=== PATIENT | female | born 1950 | race Caucasian/White ===

== ENCOUNTER 2020-10-24 10:42 | Outpatient (CLI) | payer MEDICARE, MEDICAID, SELFPAY ==
--- NOTE | 2020-10-24 10:48 | XR_ITS ---
WS: [id number] HIP WITH PELVIS RIGHT TECHNIQUE: 3 views of the right hip with pelvis CLINICAL INFORMATION: PAIN IN RIGHT HIP COMPARISON: None. FINDINGS: Osteopenia. Mild degenerative arthritis right hip with joint space narrowing. Pelvic phleboliths. No acute fractures. Normal anatomic alignment. XR/XR hip RT 2-3V wo/w pel* [id number] IMPRESSION: Mild degenerative arthritis. No acute fractures. Tonnis classification: grade 1: sclerosis of femoral head and acetabulum or sli ght joint space narrowing or slight lipping at joint margins
== END 2020-10-24 10:43 | disposition home or self-care (01) ==
PROVIDERS: PCP Nurse Practitioner Family; Visit Provider Nurse Practitioner Family
DX: M25.551 Pain in right hip (principal); M16.11 Unilateral primary osteoarthritis, right hip
CPT/HCPCS: 73502

== ENCOUNTER 2021-01-21 10:16 | Emergency (ER) | payer MEDICARE, MEDICAID, SELFPAY ==
[2021-01-21 10:16] VITALS: BP 108/63; PULSE 80; RESP 16; TEMP 36.4; O2SAT 95; BMI 29.2
[2021-01-21 10:36] VITALS: BP 108/63; PULSE 81; RESP 18; O2SAT 94
--- NOTE | 2021-01-21 10:40 | ECG_ITS ---
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 Measurements Intervals [place] Rate: 76 P: AK: QRS: 85 QRSD: 95 T: 42 QT: 377 QTc: 425 Interpretive Statements ATRIAL FIBRILLATION NONSPECIFIC T-WAVE ABNORMALITY ABNORMAL RHYTHM ECG No previous ECG available for comparison Electronically Signed On 01-21-2021 17:08:36 CDT by Tono Durán M.D. [id number]
--- NOTE | 2021-01-21 10:56 | W.ED.DIZZY ---
HPI - Dizziness General: Chief Complaint: Dizziness Stated Complaint: DIZZY/ WEAK Time Seen by Provider: 01/21/21 10:56 History of Present Illness: HPI Narrative: Ms. Sorensen is a 70-year-old lady with significant past medical history of CABG, COPD, atrial fibrillation on Eliquis and amlodipine who presents to the emergency department due to episode of lightheadedness. She reports being at her baseline health and noted recent changes in medications. She was driving to the [place] office when she had sudden onset of lightheadedness. She describes near syncope. Symptoms continued and 911 was called. Upon EMS arrival reportedly her heart rate was approximately 40 and they gave 0.5 mg of atropine and 500 cc of fluid. She endorses improvement in symptoms with these treatments. She denies similar episodes in the past. She cannot think of any specific provoking, exacerbating, or alleviating factors. There was no vertiginous component. She has been compliant with her Eliquis. Review of Systems General: Reports: 10 or more systems reviewed and unremarkable except in HPI and below Narrative: CONSTITUTIONAL: denies fever, fatigue, weakness EYES - denies pain, denies loss of vision EARS - denies ear issues. NOSE - denies congestion or rhinorrhea. THROAT - denies sore throat or difficulty swallowing. CARDIOVASCULAR - denies chest pain and palpitations RESPIRATORY - denies shortness of breath and cough GASTROINTESTINAL - denies abdominal pain, no nausea vomiting, no changes in bowel habits GENITOURINARY - denies dysuria or urinary frequency MUSCULOSKELETAL- denies deformity or pain SKIN - denies rashes or new changed skin lesions NEUROLOGIC -see HPI HEMATOLOGIC/LYMPHATIC - denies easy bruising or lymphadenopathy. [facility] ED PFSH: Medical History Allergic rhinitis Chronic low back pain GERD (gastroesophageal reflux disease) HTN (hypertension) Hyperlipidemia IBS (irritable bowel syndrome) Insomnia Memory loss Surgical History History of coronary artery stent placement Hx of coronary artery bypass graft S/P triple vessel bypass Family History Other CAD (coronary artery disease) Dementia Family history of premature coronary artery disease Hypertension Social History Smoking and tobacco status: current every day smoker Physical Exam Narrative: EXAM NARRATIVE: GENERAL/CONSTITUTIONAL - well-appearing. No acute distress. Eyes - PERRL, no conjunctival injection ENMT - Atraumatic external nose and ears. Moist mucous membranes NECK - supple. trachea midline CARDIOVASCULAR - regular rate and rhythm. Peripheral pulses 2+ and equal RESPIRATORY -clear to auscultation bilaterally. No retractions or accessory muscle use. ABDOMEN/GI - Nontender/Nondistended. No tenderness to percussion or evidence of peritonitis MSK - Extremities without obvious deformity or tenderness to palpation SKIN - Warm, Dry NEURO - alert and appropriately oriented. strength and sensation intact. Cranial nerve II through XII intact. Moves all extremities equally. PSYCH - Appropriate mood and affect Course ED course: - Patient was seen and evaluated by me at bedside - Patient placed on cardiac monitors, IV access obtained - Initial evaluation notable for no acute distress, nontoxic appearance. No neurologic deficits appreciated. Heart rate is back to normal. - Labs notable for no acute abnormalities to explain the patient's symptoms - Imaging notable for no acute abnormality to explain patient symptoms - Upon serial reexamination after treatment the patient was similar occurrence lightheadedness/dizziness - Based on patient history, evaluation, labs, and imaging as interpreted the most likely cause of the patient's condition is unclear -Other monitor ordered and patient will be discharged to directly pick it up today. - The results of ED evaluation were discussed with the patient including prescriptions and/or symptomatic cares (if applicable) including appropriate and responsible use, followup plan, and return precautions. The patient verbalized understanding and felt safe for discharge. - Patient discharged in satisfactory condition. Vital Signs: Vital signs: Vital Signs Temperature 97.5 F L 01/21/21 10:16 Pulse Rate 67 01/21/21 14:15 Respiratory Rate 18 01/21/21 14:15 Blood Pressure 105/67 01/21/21 14:15 Pulse Oximetry 94 01/21/21 14:15 MDM - Dizziness Medical Records: Attestation: I reviewed the patient's medical records. Lab Data: Attestation: I reviewed the patient's lab results. Labs: Lab Results 01/21/21 01/21/21 01/21/21 Range/Units 12:55 12:55 12:55 WBC 6.7 (4.0-10.0) 10^3/ uL RBC 3.79 L (4.1-5.3) 10^6/u L Hgb 11.7 (11.5-15.3) g/dL Hct 35.2 L (37.0-47.0) % MCV 92.9 (81-99) fl MCH 30.9 (28.0-34.0) pg MCHC 33.2 (30.0-36.0) g/dL RDW 13.4 (12.1-15.1) % Plt Count 177 (130-400) 10^3/c mm MPV 10.7 H (7.4-10.4) fL Neut % (Auto) 76.3 % Lymph % (Auto) 13.7 % [place] % (Auto) 7.1 % Eos % (Auto) 2.0 % Baso % (Auto) 0.6 % Neut # (Auto) 5.08 (1.8-7.7) 10^3/u L Lymph # (Auto) 0.9 (0.8-4.8) 10^3/u L [place] # (Auto) 0.5 (0.2-0.9) 10^3/u L Eos # (Auto) 0.1 (0.0-0.8) 10^3/u L Baso # (Auto) 0.0 (0.0-0.1) 10^3/u L Nucleated RBC % (a uto) 0 % Nucleated RBCs # 0.0 /100WBC Sodium 138 (136-145) mmol/L Potassium 4.3 (3.5-5.1) mmol/L Chloride 104 (98-107) mmol/L Carbon Dioxide 25 (22-29) mmol/L Anion Gap 13.3 (5-19) BUN 16 (8-23) mg/dL Creatinine 1.0 H (0.5-0.9) mg/dL GFR Calculation 54.8 L (90-130) mL/min Glucose 100 (65-115) mg/dL Calculated Osmolal ity 287 (285-295) mOsm/k g Calcium 8.5 (8.5-10.5) mg/dL Magnesium 1.7 (1.7-2.3) mg/dL Total Bilirubin 0.3 (0.15-1.2) mg/dL AST 19 (0-32) U/L ALT 13 (0-33) U/L Alkaline Phosphata se 126 H (35-105) IU/L Troponin T Baselin e 11 H (0-10) ng/L NT-Pro-B Natriuret Pep 1266 H (0-125) pg/mL Total Protein 5.8 L (6.6-8.7) g/dL Albumin 3.8 (3.5-5.2) g/dL Globulin 2.0 (1.3-4.6) g/dL TSH 0.84 (0.27-4.20) uIU/ mL EKG Data^: EKG 1: Attestation: I personally reviewed and interpreted this EKG as follows: EKG interpretation date: 01/21/21 EKG interpretation time: 10:55 Prior EKG tracings: not available for review Interpretation: 12 lead ekg shows an irregular atrial rhythm at a rate of 76 No UT interval, QRS 95, QTc 435. Normal axis. Interpretation: atrial fibrillation Discharge Plan Discharge Patient Disposition: Home Clinical Impression: Pre-syncope, Atrial fibrillation Condition: Stable Prescriptions: No Action acetaminophen 650 mg tablet extended release 650 mg PO Q12H RF: 0 amlodipine 10 mg tablet 10 mg PO DAILY RF: 0 aspirin 81 mg tablet,delayed release (DR/EC) 81 mg PO DAILY RF: 0 atorvastatin 80 mg tablet 80 mg PO DAILY RF: 0 B-100 Complex 100 mg tablet extended release 1 tab PO DAILY RF: 0 vitamin D3-vitamin K2 5,500-200 unit-mcg tablet 1 tab PO DAILY RF: 0 dicyclomine 20 mg tablet 20 mg PO BID PRN (Reason: UNKNOWN) RF: 0 donepezil 10 mg tablet 10 mg PO DAILY RF: 0 furosemide 40 mg tablet 40 mg PO DAILY RF: 0 isosorbide mononitrate 60 mg tablet extended release 24 hr 60 mg PO DAILY RF: 0 meloxicam 15 mg tablet 15 mg PO DAILY RF: 0 montelukast 10 mg tablet 10 mg PO DAILY RF: 0 multivitamin Tablet 1 tab PO DAILY RF: 0 nitroglycerin [Nitrostat] 0.4 mg tablet, sublingual 0.4 mg sublingual Q5M PRN (Reason: Chest Pain) RF: 0 olmesartan 40 mg tablet 40 mg PO DAILY RF: 0 pantoprazole 40 mg tablet,delayed release (DR/EC) 40 mg PO BID RF: 0 potassium chloride 10 mEq tablet extended release 10 meq PO DAILY RF: 0 pregabalin 75 mg capsule 75 mg PO BID RF: 0 sotalol 80 mg tablet 40 mg PO BID RF: 0 tizanidine 4 mg capsule 4 mg PO Q8H PRN (Reason: SEE PHARMACY COMMENT) RF: 0 trazodone 150 mg tablet 150 mg PO BEDTIME RF: 0 Eliquis 5 mg tablet 5 mg PO BID Qty: 180 RF: 3 B-50 Complex Tablet 1 tab PO DAILY RF: 0 Tart Velez Extract 1,200 mg PO DAILY RF: 0 Discharge Orders: Discharge ED (Routine); Ordered 01/21/21 Ordered By: Margarito Brown Referrals: Ashley Varela NP [Primary Care Provider] - Discharge Diet: Usual diet Discharge Activity: Resume usual activity Patient Instructions: Near Syncope (ED) Activity Restrictions/Additional Instructions: Thank you for visiting emergency department. You were seen and evaluated for presyncope. The exact cause of your symptoms is somewhat unclear. We will send you over to get a Holter monitor placed. Please return to the emergency department for repeat symptoms, shortness of breath, chest pain, numbness or tingling or weakness of any 1 part of your body, or anything else that you are concerned about and feel needs emergency department evaluation. 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
--- NOTE | 2021-01-21 11:07 | XR_ITS ---
WS: [id number] Exam: XR chest 1V portable [id number] Date/Time of Exam: 01/21/2021 11:07 AM Reason For Exam: presyncope, bradycardia Comparison 05/23/2016. The lungs are fully inflated and clear. Heart size is top limits normal. Signs of previous CABG surge ry and median sternotomy. No pleural effusions. The mediastinum is not widened. Postoperative changes noted in the cervical spine and left neck. XR/XR chest 1V portable [id number] IMPRESSION: 1. No acute cardiopulmonary finding.
--- NOTE | 2021-01-21 11:07 | CT_ITS ---
WS: [id number] Exam: CT head wo con* [id number] Date/Time of Exam: 01/21/2021 11:16 AM Reason For Exam: presyncope DLP: 878.[address] scans at [facility] use at least one of these dose optimization techniques: automat ed exposure control; mA and/or kV adjustment per patient size (includes targeted exams where dose is matched to clinical indication); or iterative reconstruction. No sign of acute intracranial bleed or space-occupying mass. The ventricles and basal cisterns are no rmal in appearance. No extra-axial fluid collections noted. Mild diffuse cerebral atrophy. The skull is intact. The mastoids are clear. Mild mucosal thickening of the ethmoid sinuses. Prosthetic lens no yulissa in the left optic globe. CT/CT head wo con* [id number] IMPRESSION: 1. No acute intracranial process identified. 2. Mild diffuse cerebral atrophy.
[2021-01-21 13:03] VITALS: BP 112/70; BP 86/64; BP 93/70; PULSE 76; PULSE 79; PULSE 86
[2021-01-21 13:05] LABS: Basophils % 0.6 %; Eosinophils # 0.1 10^3/uL (0.0-0.8); Hematocrit 35.2 % (37.0-47.0); Hemoglobin 11.7 g/dL (11.5-15.3); Lymphocytes # 0.9 10^3/uL (0.8-4.8); Lymphocytes % 13.7 %; Mean Corpuscular HGB Conc 33.2 g/dL (30.0-36.0); Mean Corpuscular Hemoglobin 30.9 pg (28.0-34.0); Mean Corpuscular Volume 92.9 fl (81-99); Mean Platelet Volume 10.7 fL (7.4-10.4); Monocytes # 0.5 10^3/uL (0.2-0.9); Monocytes % 7.1 %; Neutrophils # 5.08 10^3/uL (1.8-7.7); Neutrophils % 76.3 %; Nucleated Red Blood Cells % 0 %; Platelet Count 177 10^3/cmm (130-400); Red Blood Count 3.79 10^6/uL (4.1-5.3); Red Cell Distribution Width 13.4 % (12.1-15.1); White Blood Count 6.7 10^3/uL (4.0-10.0)
[2021-01-21 13:26] LABS: Troponin(5th) Baseline 11 ng/L (0-10)
[2021-01-21 13:33] LABS: Alanine Aminotransferase 13 U/L (0-33); Albumin Level 3.8 g/dL (3.5-5.2); Alkaline Phosphatase 126 IU/L (35-105); Anion Gap 13.3 (5-19); Aspartate Amino Transferase 19 U/L (0-32); Blood Urea Nitrogen 16 mg/dL (8-23); Calcium 8.5 mg/dL (8.5-10.5); Carbon Dioxide 25 mmol/L (22-29); Chloride 104 mmol/L (98-107); Glomerular Filtration Rate 54.8 mL/min (90-130); Glucose 100 mg/dL (65-115); Magnesium 1.7 mg/dL (1.7-2.3); NT Pro B Type Natriuretic Pept 1266 pg/mL (0-125); Osmolality Calculated 287 mOsm/kg (285-295); Potassium 4.3 mmol/L (3.5-5.1); Sodium 138 mmol/L (136-145); Thyroid Stimulating Hormone 0.84 uIU/mL (0.27-4.20); Total Bilirubin 0.3 mg/dL (0.15-1.2); Total Protein 5.8 g/dL (6.6-8.7)
--- NOTE | 2021-01-21 14:01 | DCPLANNER ---
java development manager was asked to see if patient would be able to go to [facility] when discharged from the ER to have a halter monitor placed. java development manager called [facility], spoke with Anette, was told that patient could go to [facility] for a halter monitor. java development manager had physician sign out patient order and had patient take the order to [facility].
[2021-01-21 14:15] VITALS: BP 105/67; PULSE 67; RESP 18; O2SAT 94
--- NOTE | 2021-01-22 11:47 | DCPLANNER ---
Patient had a follow up appointment scheduled for 01.21.21 with [facility] for a 48 hour halter monitor - patient did attend appointment.
== END 2021-01-21 14:15 | disposition home or self-care (01) ==
PROVIDERS: Emergency Provider Emergency Medicine; PCP Nurse Practitioner Family
DX: R55 Syncope and collapse (principal); I48.91 Unspecified atrial fibrillation; I10 Essential (primary) hypertension; E78.5 Hyperlipidemia, unspecified; Z79.01 Long term (current) use of anticoagulants; F17.200 Nicotine dependence, unspecified, uncomplicated; Z95.1 Presence of aortocoronary bypass graft; Z95.5 Presence of coronary angioplasty implant and graft; Z82.49 Family history of ischemic heart disease and other diseases of the circulatory system
CPT/HCPCS: 70450; 71045; 80053; 83735; 83880; 84443; 84484; 85025; 93005; 99283

== ENCOUNTER 2021-11-05 14:49 | Outpatient (CLI) | payer MEDICARE, MEDICAID, SELFPAY ==
--- NOTE | 2021-11-05 14:55 | USCV_ITS ---
Aimee Sorensen Age: 70 Gender: F : 1950 Exam Date: 11/05/2021 15:21 Ordering Phys: Ashley Varela NP Technologist: CHEYANNE Exam Location: [facility] [place] Indication: HYPERTENSION WITH COPD BP: 144 / 90 HR: 71 Rhythm: Atrial fibrillation Technical Quality: Poor secondary to COPD MEASUREMENTS (Male / Female) Normal Values 2D ECHO LV Diastolic Diameter PLAX 4.2 cm 4.2 - 5.9 / 3.9 - 5.3 cm LV Systolic Diameter PLAX 2.0 cm IVS Diastolic Thickness 1.3 cm 0.6 - 1.0 / 0.6 - 0.9 cm IVS Systolic Thickness 1.6 cm LVPW Diastolic Thickness 1.0 cm 0.6 - 1.0 / 0.6 - 0.9 cm LVPW Systolic Thickness 2.0 cm LVOT Diameter 2.0 cm LV Ejection Fraction 2D Teich 84.9 % LV Ejection Fraction MOD 2C 42.6 % LV Ejection Fraction 2C AL 43.7 % LA Diameter 3.5 cm LA Width 4.1 cm LA Height 6.1 cm RA Width 4.1 cm RA Height 5.2 cm Aorta at Sinotubular Diameter 1.9 cm IVC Diameter 2.1 cm M-MODE Aortic Annulus Diameter 2.3 cm LA Ao Ratio MM 1.3 MV E Point Septal Separation 0.3 cm DOPPLER AV Peak Velocity 154.0 cm/s LVOT Peak Velocity 105.0 cm/s AV Area Cont Eq vti 2.1 cm squared AV Area Cont Eq pk 2.2 cm squared MV Peak Velocity 109.0 cm/s MV Area PHT 3.0 cm squared MV E' Velocity 54.0 cm/s Mitral E to MV E' Ratio 10.7 Mitral E to LV E' Lateral Ratio 10.8 Mitral E to LV E' Septal Ratio 10.6 TR Peak Velocity 219.2 cm/s TR Peak Gradient 19.2 mmHg TR Mean Velocity 194.4 cm/s TR Mean Gradient 15.4 mmHg TR Velocity Time Integral 67.2 cm TV Peak E Velocity 41.0 cm/s Right Atrial Pressure 3.0 mmHg Pulmonary Artery Systolic Pressu 22.2 mmHg PV Peak Velocity 113.0 cm/s RV Acceleration Time 0.1 s RV Ejection Time 0.3 s RV AcT/ET 0.4 FINDINGS Left Ventricle Normal left ventricular size. LV systolic function is normal with EF of 50-55%. No regional wall motion abnormalities. Diastolic function is indeterminate because of atrial fibrillation Right Ventricle The right ventricle is normal in size and function. Right Atrium The right atrium is normal in size. Left Atrium The left atrium is dilated Mitral Valve Structurally normal mitral valve without significant stenosis or prolapse. There is moderate mitral regurgitation. Aortic Valve Aotric valve is thickened and calcified. No significant stenosis. There is no aortic regurgitation. Tricuspid Valve Structurally normal tricuspid valve without significant stenosis. Mild tricuspid regurgitation. Pulmonary artery systolic pressure is normal. Pulmonic Valve Not well visualized. Mild to moderate pulmonic regurgitation Pericardium Normal pericardium without effusion. Aorta Normal ascending aorta dimension. IVC CONCLUSIONS Technically limited quality echocardiogram because of poor ultrasonic windows. LV systolic function is normal with EF of 50 to 55%. Diastolic function is indeterminate because of atrial fibrillation. Left atrium is dilated. Moderate mitral regurgitation. Mild tricuspid regurgitation. Mild to moderate pulmonic regurgitation. No comparison studies are available. Tono Durán MD (Electronically Signed) Final Date: 13 November 2021 11:22 S
== END 2021-11-05 14:50 | disposition home or self-care (01) ==
LOC: RAD 14:54
PROVIDERS: PCP Nurse Practitioner Family; Visit Provider Nurse Practitioner Family
DX: I11.9 Hypertensive heart disease without heart failure (principal); Z95.1 Presence of aortocoronary bypass graft; E11.9 Type 2 diabetes mellitus without complications; J44.9 Chronic obstructive pulmonary disease, unspecified
CPT/HCPCS: 93306

== ENCOUNTER 2021-11-08 20:12 | Emergency (ER) | payer MEDICARE, MEDICAID, SELFPAY ==
--- NOTE | 2021-11-08 20:14 | XRR_ITS ---
PROCEDURE INFORMATION: Exam: XR Chest Exam date and time: 11/08/2021 8:25 PM Age: 70 years old Clinical indication: Pain; Shortness of breath; Prior surgery; Surgery type: Cabg. Coronary stent; Patient HX: C/O chest pressure with SOB. TECHNIQUE: Imaging protocol: XR of the chest. Views: 1 view. COMPARISON: CR XR chest 1V portable [id number] 01/21/2021 11:20 AM FINDINGS: Lungs: Unremarkable. No consolidation. Pleural spaces: Unremarkable. No pleural effusion. No pneumothorax. Heart/Mediastinum: Cardiomegaly. Bones/joints: Sternotomy wires. XR/XR chest 1V portable [id number] IMPRESSION: Cardiomegaly.
--- NOTE | 2021-11-08 20:14 | ECG_ITS ---
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 Measurements Intervals [place] Rate: 87 P: SC: QRS: 84 QRSD: 95 T: 27 QT: 378 QTc: 456 Interpretive Statements ATRIAL FIBRILLATION with frequent PVCs ABNORMAL RHYTHM ECG Nonspecific T wave changes Compared to ECG 01/21/2021 10:51:20 T-wave abnormality no longer present Electronically Signed On 11-09-2021 21:11:05 CDT by Rufus Richard M.D. [id number]
[2021-11-08 20:25] VITALS: BP 124/86; PULSE 98; RESP 20; TEMP 36.4; O2SAT 97; BMI 31.2
--- NOTE | 2021-11-08 20:40 | ED_ITS ---
HPI - SOB/Dyspnea General: Chief Complaint: Shortness of Breath/Dyspnea Stated Complaint: SOB, retaining water Time Seen by Provider: 11/08/21 20:19 Source: patient Mode of arrival: ambulatory Limitations: no limitations History of Present Illness: HPI Narrative: 70-year-old female who has a history of congestive heart failure states she is currently on Lasix she takes Lasix 40 mg a day. She states that over the last 3 to 4 days she has had increased swelling along with shortness of breath. States she had another episode 2 weeks ago where she had to double up her Lasix she is went back to the 40 mg a day at this time though. States that she has some exertional dyspnea some very slight chest pain denies any fever denies any cough. Associated symptoms: Deny abdominal pain, chest pain, fever(s), nausea or vomiting Review of Systems Const: Denies: fever(s), chills, body aches or change in appetite Eyes: Denies: blurry vision or eye discomfort ENMT: Denies: throat pain or dental pain Card: Denies: chest pain Resp: Reports: dyspnea GI: Denies: abdominal pain, nausea, vomiting or diarrhea : Denies: dysuria Musc: Reports: extremity swelling; Denies: neck pain or back pain Skin/Breast: Denies: rash Neuro: Denies: headache(s) Psych: Denies: depression Gabe/Lymph: Denies: easy bruising All/Imm: Denies: urticaria PFSH ED PFSH: Medical History Allergic rhinitis Chronic low back pain GERD (gastroesophageal reflux disease) HTN (hypertension) Hyperlipidemia IBS (irritable bowel syndrome) Insomnia Memory loss Surgical History History of coronary artery stent placement Hx of coronary artery bypass graft S/P triple vessel bypass Family History Other CAD (coronary artery disease) Dementia Family history of premature coronary artery disease Hypertension Social History Smoking and tobacco status: current every day smoker Physical Exam Const: COMMON NORMALS: no acute distress, patient oriented x3 and healthy a ppearing HENMT: COMMON NORMALS: normocephalic and atraumatic HEAD & SCALP: normocephalic and atraumatic Eye: COMMON NORMALS: Equal, round and reactive pupils present and EOMs intact bilaterally PUPIL: Yes Equal, round and reactive pupils present Neck/C-Spine: COMMON NORMALS: full ROM and supple Chest: COMMONS NORMALS: normal inspection of the chest and normal palpation of entire chest wall Resp: COMMON NORMALS: normal respiratory effort, No retractions, No use of accessory muscles and clear to auscultation bilaterally AUSCULTATION: clear to auscultation bilaterally Cardio: COMMON NORMALS: regular rate, regular rhythm and No murmurs present (Cardio) RATE: regular rate RHYTHM: regular rhythm GI: COMMON NORMALS: Normal to inspection, nondistended, normoactive bowel sounds present, Soft to palpation, non-tender and no masses PALPATION: Yes Soft to palpation Extremity: NARRATIVE EXTREMITY EXAM: 2+ edema to bilateral lower extremities Neuro: COMMON NORMALS: patient oriented x3, moves all extremities and no focal motor deficits Psych: COMMON NORMALS: mental status grossly normal, Normal thought process present and cooperative THOUGHT PROCESS: Normal thought process present Skin: COMMON NORMALS: no rashes or lesions noted and no wounds GENERAL SKIN EXAM: no rashes or lesions noted Course Vital Signs: Vital signs: Vital Signs Temperature 97.6 F 11/08/21 20:25 Pulse Rate 100 11/08/21 21:13 Respiratory Rate 18 11/08/21 21:13 Blood Pressure 166/102 11/08/21 21:13 Pulse Oximetry 96 11/08/21 21:13 MDM - SOB/Dyspnea Medical Decision Making Patient presents with lower extreme edema with congestive heart failure patient is feeling much improved after IV Lasix and has diuresed quite a lot here. We will have her take 60 mg of Lasix for the next week follow-up with her product support specialist return if worsening she has no signs of edema on her x-ray and is requiring no oxygen here she understands agrees to plan. Lab Data : 11/08/21 20:30 11/08/21 20:30 Labs/Radiology: Radiology Impressions Chest X-Ray 11/08/21 20:14 IMPRESSION: Cardiomegaly. Laboratory Results WBC 6.3 10^3/uL (4.0-10.0) 11/08/21 20:30 RBC 3.42 10^6/uL (4.1-5.3) L 11/08/21 20:30 Hgb 10.1 g/dL (11.5-15.3) L 11/08/21 20: Hct 31.3 % (37.0-47.0) L 11/08/21 20:30 MCV 91.5 fl (81-99) 11/08/21 20: MCH 29.5 pg (28.0-34.0) 11/08/21 20: MCHC 32.3 g/dL (30.0-36.0) 11/08/21 20: RDW 15.3 % (12.1-15.1) H 11/08/21 20:30 Plt Count 173 10^3/cmm (130-400) 11/08/21 20: MPV 10.5 fL (7.4-10.4) H 11/08/21 20:30 Neut % (Auto) 60.1 % 11/08/21 20: Lymph % (Auto) 26.2 % 11/08/21 20:30 [place] % (Auto) 10.1 % 11/08/21 20:30 Eos % (Auto) 2.6 % 11/08/21 20:30 Baso % (Auto) 0.8 % 11/08/21: Neut # (Auto) 3.76 10^3/uL (1.8-7.7) 11/08/21 20:30 Lymph # (Auto) 1.6 10^3/uL (0.8-4.8) 11/08/21 20:30 [place] # (Auto) 0.6 10^3/uL (0.2-0.9) 11/08/21 20: Eos # (Auto) 0.2 10^3/uL (0.0-0.8) 11/08/21 20: Baso # (Auto) 0.1 10^3/uL (0.0-0.1) 11/08/21 20:30 Nucleated RBC % (auto) 0 % 11/08/21 20:30 Nucleated RBCs # 0.0 /100WBC 11/08/21 20: PT 14.80 SECONDS (12.1-14.9) 11/08/21 20:39 INR 1.13 (0.8-1.2) 11/08/21 20:39 Sodium 134 mmol/L (136-145) L 11/08/21 20:30 Potassium 4.4 mmol/L (3.5-5.1) 11/08/21 20:30 Chloride 99 mmol/L (98-107) 11/08/21 20:30 Carbon Dioxide 24 mmol/L (22-29) 11/08/21 20:30 Anion Gap 15.4 (5-19) 11/08/21 20:30 BUN 19 mg/dL (8-23) 11/08/21 20:30 Creatinine 1.6 mg/dL (0.5-0.9) H 11/08/21 20:30 GFR Calculation 31.9 mL/min (90-130) L 11/08/21 20:30 Glucose 98 mg/dL (65-115) 11/08/21 20:30 Calculated Osmolality 280 mOsm/kg (285-295) L 11/08/21 20:30 Calcium 8.8 mg/dL (8.5-10.5) 11/08/21 20:30 Total Bilirubin 0.2 mg/dL (0.15-1.2) 11/08/21 20:30 AST 23 U/L (0-32) 11/08/21 20:30 ALT 16 U/L (0-33) 11/08/21 20:30 Alkaline Phosphatase 194 IU/L (35-105) H 11/08/21 20:30 Troponin T Baseline 10 ng/L (0-10) 11/08/21 20:30 Troponin T 120 Minute 10.08 ng/L (0-10) H 11/08/21 22:15 Delta Troponin T 0.08 ABS# (0-10) 11/08/21 22:15 NT-Pro-B Natriuret Pep 2685 pg/mL (0-125) H 11/08/21 20:30 Total Protein 6.6 g/dL (6.6-8.7) 11/08/21 20:30 Albumin 4.1 g/dL (3.5-5.2) 11/08/21 20:30 Globulin 2.5 g/dL (1.3-4.6) 11/08/21 20:30 EKG Data EKG 1: I personally reviewed and interpreted this EKG as follows: EKG Interpretation Date: 11/08/21 EKG interpretation time: 19:36 Interpretation: afib hr [address] or t wave abnormalities qrs 95 qtc 422 Discharge Plan Discharge Patient Disposition: Home Clinical Impression: Congestive heart failure, Edema of both lower legs Condition: Stable Prescriptions: No Action acetaminophen 650 mg tablet extended release 650 mg PO Q12H 0RF amlodipine 10 mg tablet 10 mg PO DAILY 0RF aspirin 81 mg tablet,delayed release (DR/EC) 81 mg PO DAILY 0RF atorvastatin 80 mg tablet 80 mg PO DAILY 0RF Rx Instructions: TAKE IN THE EVENING B-100 Complex 100 mg tablet extended release 1 tab PO DAILY 0RF vitamin D3-vitamin K2 5,500-200 unit-mcg tablet 1 tab PO DAILY 0RF dicyclomine 20 mg tablet 20 mg PO BID PRN (Reason: UNKNOWN) 0RF donepezil 10 mg tablet 10 mg PO DAILY 0RF furosemide 40 mg tablet 40 mg PO DAILY 0RF isosorbide mononitrate 60 mg tablet extended release 24 hr 60 mg PO DAILY 0RF meloxicam 15 mg tablet 15 mg PO DAILY 0RF montelukast 10 mg tablet 10 mg PO DAILY 0RF Rx Instructions: TAKE IN THE EVENING multivitamin Tablet 1 tab PO DAILY 0RF nitroglycerin [Nitrostat] 0.4 mg tablet, sublingual 0.4 mg sublingual Q5M PRN (Reason: Chest Pain) 0RF Rx Instructions: do not exceed 3 doses per episode olmesartan 40 mg tablet 40 mg PO DAILY 0RF pantoprazole 40 mg tablet,delayed release (DR/EC) 40 mg PO BID 0RF potassium chloride 10 mEq tablet extended release 10 meq PO DAILY 0RF pregabalin 75 mg capsule 75 mg PO BID 0RF sotalol 80 mg tablet 40 mg PO BID 0RF tizanidine 4 mg capsule 4 mg PO Q8H PRN (Reason: SEE PHARMACY COMMENT) 0RF trazodone 150 mg tablet 150 mg PO BEDTIME 0RF Eliquis 5 mg tablet 5 mg PO BID Qty: 180 3RF B-50 Complex Tablet 1 tab PO DAILY 0RF Tart Velez Extract 1,200 mg PO DAILY 0RF Discharge Orders: Discharge ED (Routine); Ordered 11/08/21 Ordered By: Jamie Perez Referrals: Ashley Varela NP [Primary Care Provider] - Tono Durán M.D [Physician] - 1-3 days Discharge Diet: Advance as tolerated Discharge Activity: Resume usual activity Patient Instructions: Heart Failure (ED) Coding Level of Care Code ED Early Childhood Coordinator for Chg Fwd Exam Comprehensive
[2021-11-08 20:44] LABS: Basophils # 0.1 10^3/uL (0.0-0.1); Basophils % 0.8 %; Eosinophils # 0.2 10^3/uL (0.0-0.8); Eosinophils % 2.6 %; Hematocrit 31.3 % (37.0-47.0); Hemoglobin 10.1 g/dL (11.5-15.3); Lymphocytes # 1.6 10^3/uL (0.8-4.8); Lymphocytes % 26.2 %; Mean Corpuscular HGB Conc 32.3 g/dL (30.0-36.0); Mean Corpuscular Hemoglobin 29.5 pg (28.0-34.0); Mean Corpuscular Volume 91.5 fl (81-99); Mean Platelet Volume 10.5 fL (7.4-10.4); Monocytes # 0.6 10^3/uL (0.2-0.9); Monocytes % 10.1 %; Neutrophils # 3.76 10^3/uL (1.8-7.7); Neutrophils % 60.1 %; Nucleated Red Blood Cells % 0 %; Platelet Count 173 10^3/cmm (130-400); Red Blood Count 3.42 10^6/uL (4.1-5.3); Red Cell Distribution Width 15.3 % (12.1-15.1); White Blood Count 6.3 10^3/uL (4.0-10.0)
[2021-11-08 21:03] LABS: Troponin(5th) Baseline 10 ng/L (0-10)
[2021-11-08] MEDS: FUROsemide 10 mg/mL SDV 10mL 60 MG IVP (21:05)
[2021-11-08 21:10] LABS: Alanine Aminotransferase 16 U/L (0-33); Albumin Level 4.1 g/dL (3.5-5.2); Alkaline Phosphatase 194 IU/L (35-105); Anion Gap 15.4 (5-19); Aspartate Amino Transferase 23 U/L (0-32); Blood Urea Nitrogen 19 mg/dL (8-23); Calcium 8.8 mg/dL (8.5-10.5); Carbon Dioxide 24 mmol/L (22-29); Chloride 99 mmol/L (98-107); Globulin 2.5 g/dL (1.3-4.6); Glomerular Filtration Rate 31.9 mL/min (90-130); Glucose 98 mg/dL (65-115); NT Pro B Type Natriuretic Pept 2685 pg/mL (0-125); Osmolality Calculated 280 mOsm/kg (285-295); Potassium 4.4 mmol/L (3.5-5.1); Sodium 134 mmol/L (136-145); Total Bilirubin 0.2 mg/dL (0.15-1.2); Total Protein 6.6 g/dL (6.6-8.7)
[2021-11-08 21:13] VITALS: BP 166/102; PULSE 100; RESP 18; O2SAT 96
[2021-11-08 21:15] LABS: INR 1.13 (0.8-1.2)
[2021-11-08 22:39] LABS: Troponin 5 2HR 10.08 ng/L (0-10)
[2021-11-08 22:45] LABS: Troponin 5 2HR Delta 0.08 ABS# (0-10)
--- NOTE | 2021-11-10 15:27 | DCPLANNER ---
Addendum entered by Angelita Hurd 01/01/22 09:23: Patient had a follow up appointment scheduled for 11.17.21 with Lyric Powers at [facility] - patient did attend appointment. Addendum entered by Angelita Hurd 11/13/21 14:56: Patient has a follow up appointment scheduled for Wednesday, November 17, 2021 at 10:30 with KNIFE EDGER, Lyric Powers at [facility]. Clinic will fang patient with appointment information. Original Note: assistant branch operations manager had message to schedule a follow up appointment for patient with cardiology. assistant branch operations manager sent patients information to the front office staff [facility]. Patients information will be printed and reviewed. Clinic will call patient with appointment information.
== END 2021-11-08 23:15 | disposition home or self-care (01) ==
PROVIDERS: Emergency Provider Emergency Medicine; PCP Nurse Practitioner Family
DX: I11.0 Hypertensive heart disease with heart failure (principal); I50.9 Heart failure, unspecified; F17.200 Nicotine dependence, unspecified, uncomplicated; Z79.899 Other long term (current) drug therapy
CPT/HCPCS: 71045; 80053; 83880; 84484; 85025; 85610; 93005; 96374; 99285; J1940

== ENCOUNTER → 2022-01-02 11:59 | Outpatient (BNVA) | payer OTHER, MEDICAID, SELFPAY | PROVIDERS: PCP Nurse Practitioner Family; Visit Provider Internal Medicine | DX: I48.91 Unspecified atrial fibrillation (principal); I25.10 Atherosclerotic heart disease of native coronary artery without angina pectoris; J44.9 Chronic obstructive pulmonary disease, unspecified | CPT/HCPCS: 36415; 80048; 83880 ==

== ENCOUNTER 2022-02-10 10:30 | Outpatient (CLI) | payer MEDICARE, MEDICAID, SELFPAY ==
--- NOTE | 2022-02-10 10:35 | CT_ITS ---
WS: [id number] LDCT LUNG CANCER SCREENING TECHNIQUE: Noncontrast CT of the chest with coronal and sagittal reformatted images. CLINICAL INFORMATION: lung screening COMPARISON: None. DLP: 195.91 mGy.cm DIvol: Mean CTDIvol: 5.20 (mGy) All CT scans at [facility] use at least one of these dose optimization techniques: automat ed exposure control; mA and/or kV adjustment per patient size (includes targeted exams where dose is matched to clinical indication); or iterative reconstruction. FINDINGS: A few Tiny noncalcified nodules RIGHT and LEFT upper lobes measuring 2 to 3 mm. A few scatt ered subpleural micronodules. Mild thoracic kyphosis. Moderate spondylitic changes thoracic spine with anterior hypertrophic change s. Disc space narrowing in the thoracic spine. Prior sternotomy. Caliber thoracic aorta. Aortic calci fication. Enlarged main pulmonary arteries can be seen with pulmonary arterial hypertension. Sternoto my. CABG. Coronary calcification. Cardiomegaly. No axillary lymphadenopathy. Small esophageal hiatal hernia. Adrenal glands are normal. Splenic arter y calcification. ACDF lower cervical spine. Small bilateral pleural effusions. Bibasilar atelectasis. A few calcified granulomas. Partially visua lized RIGHT upper pole renal cyst. CT/CT lung screening [id number] IMPRESSION: LUNG-RADS: 2-Benign Appearance or Behavior FOLLOW UP: 12 Month: Continue annual screening with LDCT
--- NOTE | 2022-02-10 13:24 | PFTS_ITS ---
Date of Study:02/10/22 Date of Dictation: MECHANICS: Forced vital capacity (FVC) is reduced. Forced expiratory volume in one second (FEV1) is reduced. FEV1/FVC is reduced. FLOW VOLUME LOOP: Reduced flow at all lung volumes with scooping. LUNG VOLUMES: Total lung capacity (TLC) is normal. Residual volume (RV) is normal. DIFFUSING CAPACITY FOR CARBON MONOXIDE: Mild reduced. INTERPRETATION: The prebronchodilator spirometry is consistent with moderate airflow obstruction. No postbronchodilator spirometry was performed. Lung volumes are normal. Gas exchange (DLCO) is mildly reduced. MTDD
== END 2022-02-10 10:31 | disposition home or self-care (01) ==
LOC: RAD 10:31
PROVIDERS: PCP Nurse Practitioner Family; Visit Provider Internal Medicine Pulmonary Disease
DX: Z12.2 Encounter for screening for malignant neoplasm of respiratory organs (principal); F17.210 Nicotine dependence, cigarettes, uncomplicated; J44.9 Chronic obstructive pulmonary disease, unspecified
CPT/HCPCS: 71271; 94010; 94618; 94726; 94729

== ENCOUNTER → 2022-02-23 14:22 | Outpatient (BNVA) | payer MEDICARE, MEDICAID, SELFPAY | PROVIDERS: PCP Nurse Practitioner Family; Visit Provider Internal Medicine Pulmonary Disease | DX: J44.9 Chronic obstructive pulmonary disease, unspecified (principal); R06.00 Dyspnea, unspecified; Z12.2 Encounter for screening for malignant neoplasm of respiratory organs; Z71.6 Tobacco abuse counseling; I25.10 Atherosclerotic heart disease of native coronary artery without angina pectoris; I48.91 Unspecified atrial fibrillation; F17.210 Nicotine dependence, cigarettes, uncomplicated; Z95.1 Presence of aortocoronary bypass graft | CPT/HCPCS: 99214 ==

== ENCOUNTER 2022-03-10 22:02 | Inpatient (IN) | payer MEDICARE, MEDICAID, SELFPAY ==
[2022-03-10 22:04] VITALS: BMI 28.7
[2022-03-10 22:07] VITALS: BP 142/104; PULSE 113; RESP 16; TEMP 37.4; O2SAT 91
--- NOTE | 2022-03-10 22:12 | ECG_ITS ---
[facility] Test Date: 2022-03-10 Pat Name: Aimee Sorensen Department: Room: Gender: Female Do All Operator: : 1950 Requested By: Ortega Muller Order Number: [id number] Mark MD: Tono Durán M.D. Measurements Intervals [place] Rate: 116 P: AR: QRS: 114 QRSD: 100 T: -7 QT: 332 QTc: 463 Interpretive Statements ATRIAL FIBRILLATION WITH RAPID VENTRICULAR RESPONSE WITH ABERRANT CONDUCTION OR VENTRICULAR PREMATURE COMPLEXES POSSIBLE RIGHT VENTRICULAR HYPERTROPHY [SOME/ALL OF: PROMINENT R IN V1, LATE TRANSITION, RAD, TONG, SSS] MINIMAL ST DEPRESSION [0.025+ mV ST DEPRESSION] ABNORMAL QRS-T ANGLE [QRS-T AXIS DIFFERENCE > 60] Compared to ECG 11/08/2021 19:36:59 Aberrant conduction of supraventricular beat(s) now present Atrial abnormality now present ST (T wave) deviation now present T-wave abnormality no longer present Electronically Signed On 03-11-2022 8:24:10 CDT by Tono Durán M.D. [email or web address]
--- NOTE | 2022-03-10 22:12 | XRR_ITS ---
PROCEDURE INFORMATION: Exam: XR Chest Exam date and time: 03/10/2022 10:17 PM Age: 71 years old Clinical indication: Shortness of breath; Prior surgery; Additional info: Dyspnea TECHNIQUE: Imaging protocol: Radiologic exam of the chest. Views: 1 view. COMPARISON: CR (CHEST, ) 11/08/2021 8:25 PM FINDINGS: Lungs: Unremarkable. No consolidation. Pleural spaces: Unremarkable. No pleural effusion. No pneumothorax. Heart/Mediastinum: Cardiomegaly. Bones/joints: Sternotomy wires. XR/XR chest 1V portable [id number] IMPRESSION: 1. Negative for infiltrate. 2. Cardiomegaly.
--- NOTE | 2022-03-10 22:17 | W.ED.GENADLT ---
Documented by User: Ortega Muller MD 03/13/22 22:42 HPI - General Adult General: Chief complaint: ER Hold Stated complaint: SOB Time Seen by Provider: 03/10/22 22:12 History of Present Illness: Patient is a 71-year-old female with history of COPD, hypertension, CABG, hyperlipidemia, atrial fibrillation presenting to emergency room for dyspnea since Wednesday. Patient tells me that she has had wheezing and runny nose since Wednesday. Patient attempted to use her rescue inhaler and breathing treatments without improvement symptom. Patient denies any productive phlegm or fever but reports chills. Patient patient denies any chest pain, abdominal pain,diarrhea, melena/hematochezia. No complaints at this time. Because of nonimprovement of symptoms, patient decided to come to the emergency room. Patient received duoneb e route via EMS. Onset:Wednesday Duration:5 days Location:home Severity:moderate Associated symptoms: Reports dyspnea; Deny chest pain, nausea, rash, palpitations or vomiting Review of Systems Const: Denies: fever(s) or chills Eyes: Denies: change in vision ENMT: Reports: nasal congestion; Denies: mouth pain Card: Denies: chest pain or palpitations Resp: Reports: dyspnea and other (+wheezing); Denies: non-productive cough GI: Denies: abdominal pain, nausea, vomiting or diarrhea : Denies: dysuria Musc: Denies: extremity pain Skin/Breast: Denies: rash or new lesions Neuro: Denies: weakness in extremities Psych: Reports: other (Normal mood) Gabe/Lymph: Denies: easy bruising PFSH ED PFSH: Medical History Allergic rhinitis Chronic low back pain GERD (gastroesophageal reflux disease) HTN (hypertension) Hyperlipidemia IBS (irritable bowel syndrome) Insomnia Memory loss Surgical History History of coronary artery stent placement Hx of coronary artery bypass graft S/P triple vessel bypass Family History Other CAD (coronary artery disease) Dementia Family history of premature coronary artery disease Hypertension Social History Smoking and tobacco status: current every day smoker cigarettes Packs smoked per day: 1 Years cigarettes smoked: 55 [ Other cigarette details: 4 cigarettes per day currently] Physical Exam Const: COMMON NORMALS: alert HENMT: COMMON NORMALS: atraumatic HEAD & SCALP: atraumatic MOUTH: moist mucous membranes not abnormal Eye: COMMON NORMALS: EOMs intact bilaterally and conjunctivae normal CONJUNCTIVA: Yes conjunctivae normal Neck/C-Spine: COMMON NORMALS: full ROM and supple Resp: COMMON NORMALS: normal respiratory effort OTHER: +b/l expiratory wheezes Cardio: OTHER: +irregular tachycardia GI: COMMON NORMALS: Soft to palpation and non-tender PALPATION: Yes Soft to palpation OTHER: No focal TTP. NO guarding rebound, guarding, rigidity. No CVA tenderness to percussion. Neg Hernández/Neg McBurney's point tenderness, no suprabupic tenderness to palpation. Extremity: COMMON NORMALS: full ROM OTHER: No lower extremity edema b/l Neuro: SENSORIUM/ORIENTATION: Yes alert MOTOR EXAM: No Abnormal motor strength present and Other motor observations present (no focal motor deficits) Psych: COMMON NORMALS: speech normal SPEECH: Yes normal speech MOOD & AFFECT: Yes euthymic mood Course Vital Signs: Vital signs: Vital Signs Temperature 97.8 F 03/13/22 11:41 Pulse Rate 97 03/13/22 11:41 Respiratory Rate 16 03/13/22 11:41 Blood Pressure 133/93 03/13/22 11:41 Pulse Oximetry 94 03/13/22 11:41 Oxygen Delivery Me thod 03/13/22 11:23 Oxygen Flow Rate 2 03/12/22 13:00 [facility] - General Adult Medical Decision Making Patient is a 71-year-old female with history of COPD, hypertension, CABG, hyperlipidemia, atrial fibrillation presenting to emergency room for dyspnea since Wednesday. On exam, patient noted to have mild bilateral expiratory wheezes. Patient received treatment in route. Patient on EKG is noted to be in atrial fibrillation with RVR to the 160s to the 130s. Patient received 20 mg diltiazem with improvement in heart rate. Patient received DuoNeb and Solu-Medrol with improvement in symptoms. Patient will be admitted for further management. Lab Data : 03/13/22 02:26 03/13/22 02:26 Radiology Impressions Chest X-Ray 03/10/22 22:12 IMPRESSION: 1. Negative for infiltrate. 2. Cardiomegaly. Laboratory Results WBC 13.6 10^3/uL (4.0-10.0) H 03/11/22 04:10 RBC 4.46 10^6/uL (4.1-5.3) 03/11/22 04:10 Hgb 13.6 g/dL (11.5-15.3) 03/11/22 04:10 Hct 42.1 % (37.0-47.0) 03/11/22 04:10 MCV 94.4 fl (81-99) 03/11/22 04:10 MCH 30.5 pg (28.0-34.0) 03/11/22 04:10 MCHC 32.3 g/dL (30.0-36.0) 03/11/22 04:10 RDW 15.0 % (12.1-15.1) 03/11/22 04:10 Plt Count 147 10^3/cmm (130-400) 03/11/22 04:10 MPV 10.4 fL (7.4-10.4) 03/11/22 04:10 Neut % (Auto) 93.4 % 03/11/22 04:10 Lymph % (Auto) 4.4 % 03/11/22 04:10 [place] % (Auto) 1.5 % 03/11/22 04:10 Eos % (Auto) 0.1 % 03/11/22 04:10 Baso % (Auto) 0.1 % 03/11/22 04:10 Neut # (Auto) 12.65 10^3/uL (1.8-7.7) H 03/11/22 04:10 Lymph # (Auto) 0.6 10^3/uL (0.8-4.8) L 03/11/22 04:10 [place] # (Auto) 0.2 10^3/uL (0.2-0.9) 03/11/22 04:10 Eos # (Auto) 0.0 10^3/uL (0.0-0.8) 03/11/22 04:10 Baso # (Auto) 0.0 10^3/uL (0.0-0.1) 03/11/22 04:10 Nucleated RBC % (auto) 0 % 03/11/22 04:10 Nucleated RBCs # 0.0 /100WBC 03/11/22 04:10 D-Dimer 0.48 ug/mIFEU (0-0.59) 03/10/22 22:36 Sodium 136 mmol/L (136-145) 03/11/22 04:10 Potassium 4.3 mmol/L (3.5-5.1) 03/11/22 04:10 Chloride 98 mmol/L (98-107) 03/11/22 04:10 Carbon Dioxide 24 mmol/L (22-29) 03/11/22 04:10 Anion Gap 18.3 (5-19) 03/11/22 04:10 BUN 14 mg/dL (8-23) 03/11/22 04:10 Creatinine 1.0 mg/dL (0.5-0.9) H 03/11/22 04:10 GFR Calculation Not Reportable 03/11/22 04:10 Glucose 152 mg/dL (65-115) H 03/11/22 04:10 Calculated Osmolality 285 mOsm/kg (285-295) 03/11/22 04:10 Calcium 9.3 mg/dL (8.5-10.5) 03/11/22 04:10 Magnesium 2.0 mg/dL (1.7-2.3) 03/11/22 04:10 Troponin T Baseline 19 ng/L (0-10) H 03/10/22 22:36 Troponin T 120 Minute 18.55 ng/L (0-10) H 03/11/22 00:14 Delta Troponin T -0.45 ABS# (0-10) L 03/11/22 00:14 Troponin T Hi Sens 6Hr 14.66 ng/L (0-10) H 03/11/22 04:10 Troponin T Hi Sens 6Hr Delta -4.34 ng/L (0-12) L 03/11/22 04:10 NT-Pro-B Natriuret Pep 3352 pg/mL (0-125) H 03/10/22 22:36 Procalcitonin 0.02 ng/mL (0-0.5) 03/11/22 04:10 Nasal Influ A H1 2008 PCR Cancelled 03/10/22 23:07 Influenza A (H1) PCR Cancelled 03/10/22 23:07 Influenza A (H3) PCR Cancelled 03/10/22 23:07 Influenza Type A Ag negative (Negative) 03/10/22 23:07 Influenza Type A (PCR) Cancelled 03/10/22 23:07 Influenza Type B Ag negative (Negative) 03/10/22 23:07 Influenza Type B (PCR) Cancelled 03/10/22 23:07 SARS-CoV-2 Ag (Rapid) negative (Negative) 03/10/22 23:05 Discharge Plan Discharge Patient Disposition: Placed in Observation Admit Provider: Mayo Erickson Clinical Impression: Acute exacerbation of chronic obstructive pulmonary disease, Bilateral wheezing Discharge Diet: Cardiac Discharge Activity: Increase activity as tolerated Sign Out Sign Out Data: Patient Sign Out occurred on 03/10/22 at 22:42. Patient's care was discussed, and care was transferred from to Margarito Brown MD. 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 for Chg Fwd Exam Comprehensive Documented by User: Margarito Brown MD 03/22/22 17:12 HPI - General Adult General: Chief complaint: ER Hold Stated complaint: SOB Time Seen by Provider: 03/10/22 22:12 [facility] ED PFSH: Medical History Allergic rhinitis Chronic low back pain GERD (gastroesophageal reflux disease) HTN (hypertension) Hyperlipidemia IBS (irritable bowel syndrome) Insomnia Memory loss Surgical History History of coronary artery stent placement Hx of coronary artery bypass graft S/P triple vessel bypass Family History Other CAD (coronary artery disease) Dementia Family history of premature coronary artery disease Hypertension Social History Smoking and tobacco status: current every day smoker cigarettes Packs smoked per day: 1 Years cigarettes smoked: 55 [ Other cigarette details: 4 cigarettes per day currently] Course Vital Signs: Vital signs: Vital Signs Temperature 97.8 F 03/13/22 11:41 Pulse Rate 97 03/13/22 11:41 Respiratory Rate 16 03/13/22 11:41 Blood Pressure 133/93 03/13/22 11:41 Pulse Oximetry 94 03/13/22 11:41 Oxygen Delivery Me thod 03/13/22 11:23 Oxygen Flow Rate 2 03/12/22 13:00 MDM - General Adult Medical Decision Making Patient is a 71-year-old female with history of COPD, hypertension, CABG, hyperlipidemia, atrial fibrillation presenting to emergency room for dyspnea since Wednesday. On exam, patient noted to have mild bilateral expiratory wheezes. Patient received treatment in route. Patient on EKG is noted to be in atrial fibrillation with RVR to the 160s to the 130s. Patient received 20 mg diltiazem with improvement in heart rate. Patient received DuoNeb and Solu-Medrol with improvement in symptoms. Patient will be admitted for further management. Patient care discussed with Dr. Muller. Patient admitted for further management. Margarito Brown MD Emergency Medicine Lab Data : 03/13/22 02:26 03/13/22 02:26 Radiology Impressions Chest X-Ray 03/10/22 22:12 IMPRESSION: 1. Negative for infiltrate. 2. Cardiomegaly. Laboratory Results WBC 13.6 10^3/uL (4.0-10.0) H 03/11/22 04:10 RBC 4.46 10^6/uL (4.1-5.3) 03/11/22 04:10 Hgb 13.6 g/dL (11.5-15.3) 03/11/22 04:10 Hct 42.1 % (37.0-47.0) 03/11/22 04:10 MCV 94.4 fl (81-99) 03/11/22 04:10 MCH 30.5 pg (28.0-34.0) 03/11/22 04:10 MCHC 32.3 g/dL (30.0-36.0) 03/11/22 04:10 RDW 15.0 % (12.1-15.1) 03/11/22 04:10 Plt Count 147 10^3/cmm (130-400) 03/11/22 04:10 MPV 10.4 fL (7.4-10.4) 03/11/22 04:10 Neut % (Auto) 93.4 % 03/11/22 04:10 Lymph % (Auto) 4.4 % 03/11/22 04:10 [place] % (Auto) 1.5 % 03/11/22 04:10 Eos % (Auto) 0.1 % 03/11/22 04:10 Baso % (Auto) 0.1 % 03/11/22 04:10 Neut # (Auto) 12.65 10^3/uL (1.8-7.7) H 03/11/22 04:10 Lymph # (Auto) 0.6 10^3/uL (0.8-4.8) L 03/11/22 04:10 [place] # (Auto) 0.2 10^3/uL (0.2-0.9) 03/11/22 04:10 Eos # (Auto) 0.0 10^3/uL (0.0-0.8) 03/11/22 04:10 Baso # (Auto) 0.0 10^3/uL (0.0-0.1) 03/11/22 04:10 Nucleated RBC % (auto) 0 % 03/11/22 04:10 Nucleated RBCs # 0.0 /100WBC 03/11/22 04:10 D-Dimer 0.48 ug/mIFEU (0-0.59) 03/10/22 22:36 Sodium 136 mmol/L (136-145) 03/11/22 04:10 Potassium 4.3 mmol/L (3.5-5.1) 03/11/22 04:10 Chloride 98 mmol/L (98-107) 03/11/22 04:10 Carbon Dioxide 24 mmol/L (22-29) 03/11/22 04:10 Anion Gap 18.3 (5-19) 03/11/22 04:10 BUN 14 mg/dL (8-23) 03/11/22 04:10 Creatinine 1.0 mg/dL (0.5-0.9) H 03/11/22 04:10 GFR Calculation Not Reportable 03/11/22 04:10 Glucose 152 mg/dL (65-115) H 03/11/22 04:10 Calculated Osmolality 285 mOsm/kg (285-295) 03/11/22 04:10 Calcium 9.3 mg/dL (8.5-10.5) 03/11/22 04:10 Magnesium 2.0 mg/dL (1.7-2.3) 03/11/22 04:10 Troponin T Baseline 19 ng/L (0-10) H 03/10/22 22:36 Troponin T 120 Minute 18.55 ng/L (0-10) H 03/11/22 00:14 Delta Troponin T -0.45 ABS# (0-10) L 03/11/22 00:14 Troponin T Hi Sens 6Hr 14.66 ng/L (0-10) H 03/11/22 04:10 Troponin T Hi Sens 6Hr Delta -4.34 ng/L (0-12) L 03/11/22 04:10 NT-Pro-B Natriuret Pep 3352 pg/mL (0-125) H 03/10/22 22:36 Procalcitonin 0.02 ng/mL (0-0.5) 03/11/22 04:10 Nasal Influ A H1 2009 PCR Cancelled 03/10/22 23:07 Influenza A (H1) PCR Cancelled 03/10/22 23:07 Influenza A (H3) PCR Cancelled 03/10/22 23:07 Influenza Type A Ag negative (Negative) 03/10/22 23:07 Influenza Type A (PCR) Cancelled 03/10/22 23:07 Influenza Type B Ag negative (Negative) 03/10/22 23:07 Influenza Type B (PCR) Cancelled 03/10/22 23:07 SARS-CoV-2 Ag (Rapid) negative (Negative) 03/10/22 23:05 Discharge Plan Discharge Patient Disposition: Placed in Observation Admit Provider: Mayo Erickson Clinical Impression: Acute exacerbation of chronic obstructive pulmonary disease, Bilateral wheezing Discharge Diet: Cardiac Discharge Activity: Increase activity as tolerated Sign Out Sign Out Data: Patient Sign Out occurred on 03/10/22 at 22:42. Patient's care was discussed, and care was transferred from to Margarito Brown MD. 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 for g Fwd Exam Comprehensive
[2022-03-10 22:40] LABS: Basophils % 0.2 %; Eosinophils # 0.1 10^3/uL (0.0-0.8); Eosinophils % 0.5 %; Hematocrit 39.8 % (37.0-47.0); Hemoglobin 13.1 g/dL (11.5-15.3); Lymphocytes # 1.1 10^3/uL (0.8-4.8); Lymphocytes % 9.7 %; Mean Corpuscular HGB Conc 32.9 g/dL (30.0-36.0); Mean Corpuscular Hemoglobin 30.7 pg (28.0-34.0); Mean Corpuscular Volume 93.2 fl (81-99); Monocytes # 0.6 10^3/uL (0.2-0.9); Monocytes % 5.3 %; Neutrophils # 9.27 10^3/uL (1.8-7.7); Neutrophils % 83.8 %; Nucleated Red Blood Cells % 0 %; Platelet Count 143 10^3/cmm (130-400); Red Blood Count 4.27 10^6/uL (4.1-5.3); Red Cell Distribution Width 14.9 % (12.1-15.1)
[2022-03-10] MEDS: dilTIAZem 5 mg/mL SDV 5 mL 20 MG IVP (22:45)
[2022-03-10 22:53] VITALS: BP 116/85; PULSE 94; RESP 20; O2SAT 92
--- NOTE | 2022-03-10 22:54 | PC.NURSE ---
Pt moved from room 9 to room 6 secondary for need of psych room. Report given to DMITRIY Harvey.
[2022-03-10 23:02] LABS: Troponin(5th) Baseline 19 ng/L (0-10)
[2022-03-10 23:07] VITALS: PULSE 93; RESP 18; O2SAT 94
[2022-03-10] MEDS: ipratropium-albuterol 3 mL Neb INHALATION ×3 (23:07)
[2022-03-10 23:09] LABS: Anion Gap 15.2 (5-19); Blood Urea Nitrogen 16 mg/dL (8-23); Calcium 9.2 mg/dL (8.5-10.5); Carbon Dioxide 28 mmol/L (22-29); Chloride 97 mmol/L (98-107); Glucose 118 mg/dL (65-115); Magnesium 1.9 mg/dL (1.7-2.3); NT Pro B Type Natriuretic Pept 3352 pg/mL (0-125); Osmolality Calculated 284 mOsm/kg (285-295); Potassium 4.2 mmol/L (3.5-5.1); Sodium 136 mmol/L (136-145)
[2022-03-10 23:10] LABS: D Dimer 0.48 ug/mIFEU (0-0.59)
[2022-03-10 23:15] VITALS: PULSE 97
[2022-03-10 23:39] LABS: Influenza A by IFA negative (Negative); Influenza B by IFA negative (Negative)
[2022-03-10 23:40] LABS: SARS Covid-2 Antigen negative (Negative)
[2022-03-11] VITALS (65 sets, daily range): BP systolic 102–158; BP diastolic 73–109; PULSE 88–120; RESP 12–34; TEMP 36.7–36.8; O2SAT 88–96
--- NOTE | 2022-03-11 00:12 | ECG_ITS ---
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 Measurements Intervals [place] Rate: 103 P: ID: QRS: 106 QRSD: 96 T: 27 QT: 373 QTc: 491 Interpretive Statements ATRIAL FIBRILLATION WITH RAPID VENTRICULAR RESPONSE WITH ABERRANT CONDUCTION OR VENTRICULAR PREMATURE COMPLEXES RIGHT AXIS DEVIATION [QRS AXIS > 100] Compared to ECG 03/10/2022 22:12:06 Right-axis deviation now present Atrial abnormality no longer present ST (T wave) deviation no longer present Electronically Signed On 03-12-2022 13:05:00 CDT by Ada Goodman M.D. [email or web address]/store/OM/[id number]
[2022-03-11] MEDS: dilTIAZem 5 mg/mL SDV 5 mL 20 MG IVP (00:39)
[2022-03-11 00:48] LABS: Troponin 5 2HR 18.55 ng/L (0-10)
[2022-03-11 01:15] LABS: Troponin 5 2HR Delta -0.45 ABS# (0-10)
[2022-03-11] MEDS: doxycycline 100 MG in sodium chloride 0.9% (plus) 100 ML IV (02:21)
--- NOTE | 2022-03-11 02:44 | PM.HP ---
Providers/Chief Complaint Primary Care Provider: Ashley Varela NP Chief Complaint: SOB History of Present Illness Aimee Sorensen is a 71 year old female with past medical history of hypertension CAD s/p CABG in 2000, COPD, atrial fibrillation on Eliquis, current smoker, came in with chief complaint of worsening shortness of breath, associated with cough with greenish sputum, wheezing and runny nose started this Wednesday and has since then progressively worsened, rescue inhaler as well as breathing treatment has been been of any significant. Currently she denies any, chest pain, palpitation, fever, nausea vomiting diarrhea constipation. Upon arrival in the ER she was also found to be in A. fib with RVR, she received IV Cardizem, which slowed down the rate. She also received Solu-Medrol 125 IV, as well as breathing treatments in the ER. she was worked up for above-mentioned complaint. Pertinent imaging studies. X-ray chest: No infiltrates no effusion no pneumothorax EKG A. fib with RVR Pertinent labs: WBC 11, H&H 13 and 39, plt : 143 , serum sodium 136 , serum potassium 4.2 , BUN/ serum creatinine:16/1.2 troponin trend: 19-18 , D-dimer: 0.48 , proBNP: 3352 Influenza and COVID is negative Review of Systems General: Reports: 10 or more systems reviewed and unremarkable except in HPI and below Const: Reports: chills; Denies: fever(s), body aches, change in appetite or diaphoresis Card: Denies: palpitations, edema, swelling of feet/ankles, dyspnea on exertion, orthopnea or leg pain with exertion Resp: Reports: dyspnea and wheezing; Denies: productive cough or pain on inspiration GI: Denies: abdominal pain, nausea, vomiting, diarrhea or constipation : Denies: flank pain Musc: Denies: back pain, extremity pain or extremity swelling Neuro: Denies: headache(s), difficulty walking or confusion Medications/Allergies Home Medications Medication Instructions Recorded Confirmed Last Taken Type acetaminophen 650 mg 650 mg PO Q12H 08/06/20 02/23/22 01/21/21 History tablet,extended release aspirin 81 mg tablet,delayed 81 mg PO DAILY 08/06/20 02/23/22 01/21/21 History release atorvastatin 80 mg tablet 80 mg PO DAILY 08/06/20 02/23/22 01/20/21 History cholecalciferol (vit D3) 5,500 1 tab PO DAILY 08/06/20 02/23/22 01/20/21 History unit-vit K2 200 mcg tablet donepezil 10 mg tablet 10 mg PO DAILY 08/06/20 02/23/22 01/21/21 History isosorbide mononitrate 60 mg 60 mg PO DAILY 08/06/20 02/23/22 01/21/21 History tablet,extended release 24 hr meloxicam 15 mg tablet 15 mg PO DAILY 08/06/20 02/23/22 01/21/21 History montelukast 10 mg tablet 10 mg PO DAILY 08/06/20 02/23/22 01/20/21 History multivitamin 1 tab PO DAILY 08/06/20 02/23/22 01/19/21 History nitroglycerin 0.4 mg sublingual 0.4 mg sublingual Q5M PRN Chest 08/06/20 02/23/22 Unknown History tablet (Nitrostat) Pain pantoprazole 40 mg tablet,delayed 40 mg PO BID 08/06/20 02/23/22 01/21/21 History release potassium chloride 10 mEq 10 meq PO DAILY 08/06/20 02/23/22 01/21/21 History tablet,extended release sotalol 80 mg tablet 40 mg PO BID 08/06/20 02/23/22 01/21/21 History tizanidine 4 mg capsule 4 mg PO Q8H PRN SEE PHARMACY 08/06/20 02/23/22 01/21/21 History COMMENT trazodone 150 mg tablet 150 mg PO BEDTIME 08/06/20 02/23/22 01/20/21 History vit B complex 100 combo no.2 100 1 tab PO DAILY 08/06/20 02/23/22 01/21/21 History mg tablet,extended release (B-100 Complex ER) ferrous sulfate 325 mg (65 mg 325 mg PO DAILY 11/17/21 02/23/22 Unknown History iron) tablet dicyclomine 20 mg tablet 20 mg PO .four times daily PRN 11/18/21 02/23/22 Unknown History UNKNOWN fluticasone fur. 100 mcg-umeclid 1 inh inhalation DAILY #60 ea 11/18/21 02/23/22 Unknown Rx 62.5 mcg-vilant 25 mcg inhalat.powder (Trelegy Ellipta) pregabalin 100 mg capsule 100 mg PO BID 11/18/21 02/23/22 Unknown History albuterol sulfate 90 mcg/actuation 2 puff inhalation Q6H PRN 11/20/21 02/23/22 Unknown Rx aerosol inhaler shortness of breath or wheezing #8.5 grams ipratropium 0.5 mg-albuterol 3 mg 3 ml inhalation Q6H PRN shortness 11/20/21 02/23/22 Unknown Rx (2.5 mg base)/3 mL nebulization of breath or wheezing #180 mL soln apixaban 5 mg tablet (Eliquis) 5 mg PO BID #180 tabs 11/28/21 02/23/22 Unknown Rx olmesartan 40 mg tablet 40 mg PO DAILY 01/02/22 02/23/22 Unknown History furosemide 40 mg tablet 40 mg PO DIRECTED #90 tabs 01/06/22 02/23/22 Unknown Rx Allergies Allergy/AdvReac Type Severity Reaction Status Date / Time adhesive tape Allergy Severe ALGY-Bliste Verified 02/23/22 14:51 r acetaminophen [From Vicodin] Allergy Unknown Verified 02/23/22 14:51 codeine Allergy Unknown Verified 02/23/22 14:51 hydrocodone [From Vicodin] Allergy Unknown Verified 02/23/22 14:51 PFSH Acute PFSH: Medical History Allergic rhinitis Chronic low back pain GERD (gastroesophageal reflux disease) HTN (hypertension) Hyperlipidemia IBS (irritable bowel syndrome) Insomnia Memory loss Surgical History History of coronary artery stent placement Hx of coronary artery bypass graft S/P triple vessel bypass Family History Other CAD (coronary artery disease) Dementia Family history of premature coronary artery disease Hypertension Social History Smoking and tobacco status: current every day smoker cigarettes Packs smoked per day: 1 Years cigarettes smoked: 55 [ Other cigarette details: 4 cigarettes per day currently] Vitals/I&O/Wt Last Vital Signs Temp 99.4 F 03/10/22 22:07 Pulse 97 03/11/22 01:00 Resp 23 H 03/11/22 01:00 BP 128/85 03/11/22 01:00 Pulse Ox 94 03/11/22 01:00 O2 Del Method 03/11/22 01:00 O2 Flow Rate 3 03/11/22 01:00 Weight last 48 hrs Weight 73.482 kg Physical Exam Const: COMMON NORMALS: patient oriented x3 Resp: EFFORT & INSPECTION: Yes symmetric chest movement OTHER: Bilateral expiratory wheezing present in both the lungs moya. No rhonchi no rales Cardio: COMMON NORMALS: Peripheral pulses 2+ throughout HEART SOUNDS: S1 normal heart sound present and S2 normal heart sound present PERIPHERAL PULSES: Peripheral pulses 2+ throughout OTHER: Irregularly irregular rhythm, S1-S2 variable intensity, pansystolic murmur GI: COMMON NORMALS: Normal to inspection, nondistended, normoactive bowel sounds present, Soft to palpation, non-tender, No hepatosplenomegaly present and no masses AUSCULTATION: Yes normoactive bowel sounds PALPATION: Yes Soft to palpation and Yes No hepatosplenomegaly present RECTAL EXAM: deferred Extremity: COMMON NORMALS: no clubbing, cyanosis or edema and no pedal edema Data : 03/10/22 22:36 03/10/22 22:36 A&P Assessment and plan (1) Acute exacerbation of chronic obstructive pulmonary disease: (2) Hx of coronary artery bypass graft: (3) CAD (coronary artery disease): (4) Atrial fibrillation: (5) Atrial fibrillation with RVR: (6) Hypertension: Plan 71 year old female with past medical history of hypertension CAD s/p CABG in 2000, COPD, atrial fibrillation on Eliquis, current smoker, came in with chief complaint of worsening shortness of breath, associated with wheezing and runny nose started this Wednesday and has since then progressively worsened. Assessment: Shortness of breath secondary to COPD exacerbation as well as A. fib with RVR: COPD exacerbation Atrial fibrillation with RVR History of coronary artery disease s/p CABG Hypertension CKD Likely HFpEF Plan: Continue duo nebs Solu-Medrol 60 twice daily Azithromycin IV daily Pulmonary toilet Monitor ABG Monitor x-ray chest Supplemental oxygen as needed to maintain a saturation around 88 Continue sotalol may require dose adjustment with subsequent ECG monitoring for QTc interval, 2 hours after each dose Continue Eliquis for anticoagulation Monitor BMP, avoid nephrotoxic's, monitor intake output charting, daily weight K>4 , MG>2 Continue telemetry monitoring CODE STATUS: Full code DVT prophylaxis: Not needed on Eliquis Attestations Medical Necessity Statement*: Patient is in hospital for management of COPD exacerbation.Anticipated length of stay greater than 2 midnights Time Spent in Patient Care: Greater than 35 minutes (>than 50% of time spent in counselling and/or direct pt care on unit). 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
[2022-03-11] MEDS: sotalol 80 mg Tablet 40 MG PO ×2 (04:02→18:40)
--- NOTE | 2022-03-11 04:12 | ECG_ITS ---
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 Measurements Intervals [place] Rate: 111 P: GA: QRS: 107 QRSD: 96 T: -20 QT: 365 QTc: 497 Interpretive Statements ATRIAL FIBRILLATION WITH RAPID VENTRICULAR RESPONSE WITH ABERRANT CONDUCTION OR VENTRICULAR PREMATURE COMPLEXES RIGHT AXIS DEVIATION [QRS AXIS > 100] NONSPECIFIC ST & T-WAVE ABNORMALITY Compared to ECG 03/11/2022 00:05:53 T-wave abnormality now present Electronically Signed On 03-12-2022 13:04:38 CDT by Ada Goodman M.D. [id number]
[2022-03-11 04:22] LABS: Basophils % 0.1 %; Eosinophils % 0.1 %; Hematocrit 42.1 % (37.0-47.0); Hemoglobin 13.6 g/dL (11.5-15.3); Lymphocytes # 0.6 10^3/uL (0.8-4.8); Lymphocytes % 4.4 %; Mean Corpuscular HGB Conc 32.3 g/dL (30.0-36.0); Mean Corpuscular Hemoglobin 30.5 pg (28.0-34.0); Mean Corpuscular Volume 94.4 fl (81-99); Mean Platelet Volume 10.4 fL (7.4-10.4); Monocytes # 0.2 10^3/uL (0.2-0.9); Monocytes % 1.5 %; Neutrophils # 12.65 10^3/uL (1.8-7.7); Neutrophils % 93.4 %; Nucleated Red Blood Cells % 0 %; Platelet Count 147 10^3/cmm (130-400); Red Blood Count 4.46 10^6/uL (4.1-5.3); White Blood Count 13.6 10^3/uL (4.0-10.0)
[2022-03-11 04:47] LABS: Troponin 5 6HR 14.66 ng/L (0-10)
[2022-03-11 04:48] LABS: Blood Urea Nitrogen 14 mg/dL (8-23); Calcium 9.3 mg/dL (8.5-10.5); Carbon Dioxide 24 mmol/L (22-29); Glucose 152 mg/dL (65-115)
[2022-03-11 04:50] LABS: Procalcitonin 0.02 ng/mL (0-0.5)
[2022-03-11 04:56] LABS: Troponin 5 6HR Delta -4.34 ng/L (0-12)
[2022-03-11 05:12] LABS: Anion Gap 18.3 (5-19); Chloride 98 mmol/L (98-107); Osmolality Calculated 285 mOsm/kg (285-295); Potassium 4.3 mmol/L (3.5-5.1); Sodium 136 mmol/L (136-145)
[2022-03-11] MEDS: azithromycin 500 MG in sodium chloride 0.9% 250 ML 250 MG IV (06:40)
[2022-03-11] MEDS: levalbuterol 1.25 mg/3 mL Neb INHALATION ×4 (07:48→21:13)
[2022-03-11] MEDS: ipratropium 0.5 mg/2.5 mL Neb INHALATION ×4 (07:48→21:13)
[2022-03-11] MEDS: apixaban 5 mg Tablet PO ×2 (10:16→18:41)
--- NOTE | 2022-03-11 15:24 | PC.NURSE ---
During admission assessment, Dr. Astorga is at bedside for quick assessment and ordered a sputum culture and stain. Provided patient a sterile cup and instructed her on medina coughing to produce specimen and instructed her to press her call light when she obtains a specimen. She verbalizes understanding. Provided information to Michelle Redmond CNA and Mary Plascencia LPN.
--- NOTE | 2022-03-11 15:27 | PM.MISC ---
Miscellaneous Note Note: Examined No active wheezing Currently on 2 L Experiencing productive cough yellow sputum production Requested sputum culture and sensitivity along gram stain Decrease the dose of steroids Awake and alert Nonfocal neuro exam Clinically looks euvolemic Assessment plan Decrease the dose steroids Continue ipratropium and give albuterol Patient does use trilogy at home follows up with Dr. Luke Continue antibiotics Plan to discharge her tomorrow after home O2 eval Patient has already been given pulmonary rehab prescription by Dr. Luke
--- NOTE | 2022-03-11 15:46 | PC.NURSE ---
$80 (4-$20 bills) counted and verified with Mary Plascencia LPN and placed[facility].
[2022-03-11 16:31] LABS: Magnesium 2.3 mg/dL (1.7-2.3)
[2022-03-11] MEDS: trazodone 150 mg Tablet PO (21:04)
[2022-03-11] MEDS: pregabalin 100 mg Capsule PO (21:05)
[2022-03-11] MEDS: acetaminophen 325 mg Tablet 650 MG PO (21:12)
[2022-03-12] VITALS (18 sets, daily range): BP systolic 108–150; BP diastolic 76–100; PULSE 90–127; RESP 16–22; TEMP 36.4–37.1; O2SAT 93–98
[2022-03-12 02:51] LABS: Basophils % 0.1 %; Hematocrit 40.3 % (37.0-47.0); Hemoglobin 13.2 g/dL (11.5-15.3); Lymphocytes # 0.7 10^3/uL (0.8-4.8); Lymphocytes % 8.5 %; Mean Corpuscular HGB Conc 32.8 g/dL (30.0-36.0); Mean Corpuscular Hemoglobin 30.8 pg (28.0-34.0); Mean Corpuscular Volume 94.2 fl (81-99); Mean Platelet Volume 10.4 fL (7.4-10.4); Monocytes # 0.4 10^3/uL (0.2-0.9); Monocytes % 4.5 %; Neutrophils # 6.68 10^3/uL (1.8-7.7); Neutrophils % 86.4 %; Nucleated Red Blood Cells % 0 %; Platelet Count 140 10^3/cmm (130-400); Red Blood Count 4.28 10^6/uL (4.1-5.3); Red Cell Distribution Width 14.8 % (12.1-15.1); White Blood Count 7.7 10^3/uL (4.0-10.0)
[2022-03-12] MEDS: levalbuterol 1.25 mg/3 mL Neb INHALATION (02:56)
[2022-03-12 03:17] LABS: Anion Gap 13.4 (5-19); Blood Urea Nitrogen 13 mg/dL (8-23); Calcium 9.5 mg/dL (8.5-10.5); Carbon Dioxide 27 mmol/L (22-29); Chloride 100 mmol/L (98-107); Glucose 191 mg/dL (65-115); Magnesium 2.3 mg/dL (1.7-2.3); Osmolality Calculated 287 mOsm/kg (285-295); Potassium 4.4 mmol/L (3.5-5.1); Sodium 136 mmol/L (136-145)
[2022-03-12 03:20] LABS: Procalcitonin 0.02 ng/mL (0-0.5)
[2022-03-12] MEDS: azithromycin 500 MG in sodium chloride 0.9% 250 ML 250 MG IV (06:21)
[2022-03-12] MEDS: ipratropium 0.5 mg/2.5 mL Neb INHALATION ×3 (08:06→20:57)
[2022-03-12] MEDS: sotalol 80 mg Tablet 40 MG PO ×2 (08:23→17:16)
[2022-03-12] MEDS: apixaban 5 mg Tablet PO ×2 (08:23→17:16)
[2022-03-12] MEDS: pregabalin 100 mg Capsule PO ×2 (08:23→17:15)
--- NOTE | 2022-03-12 10:52 | PC.CHAP ---
Pastoral Care Encounter/Spiritual Assessment Type of Contact [] Declined field artillery radar operator visit [] Patient/Family/Request visit [] Outpatient visit [] Follow-up visit [] Physician referral [] Code/Alert [x] Routine visit [] Staff referral [] Actively dying [] Patient sleeping [] Family support [] [] Out of room [] Palliative care [] [x] Receiving care in room [] Pre-surgical visit [] Trauma [] Long length of stay [] ICU visit [] Other: Relational/Emotional Strength [x] Patient feels connected with others/family/visitors/staff [] Distress [] Loneliness/isolation [] Abandonment Spirituality of Patient [x] Person of Una [] Attends Adventist of their Una [x] Believes in Prayer [] Reads Bible or Synagogue materials [] There are Spiritual issues to be addressed Bed And Breakfast Operator Interventions [x] Prayer [x] Active listening [x] Non-anxious presence [x] Spiritual/emotional support [] Crisis/trauma care [x] Spiritual counseling [] Bereavement support [] Provided bereavement packet [] Provided Bible/devotional materials [] Provided toy/stuffed animal, coloring book to patient or family member [] Provided Communion [] Anointing/[place] [] Salvation [x] Completed spiritual assessment [] Other: Impact on Illness or Injury [] Angry [] Fearful [x] Anxious [] Often cries [] Exhaustion [x] Unable to work [] Unable to attend catholic [] Unable to walk/stand [] Unable to read [] Unable to drive [] Unable to eat/drink [] Unable to sleep [] Unable to be with family [] Patient intubated [] Other: Summary senior checking with doctor has a postive attitude +1 well be goinh mhome at some point Time spent with patient 10 mins
--- NOTE | 2022-03-12 12:21 | P.PN_ITS ---
Subjective Subjective: Patient does not qualify for oxygen but she was very short of breath after minimal exertion and noticed active wheezing I requested to stay 1 more day so I can give her some steroids and improve her wheezing Vitals/I&O/Wt Last Vital Signs Temp 97.6 F 03/12/22 11:37 Pulse 127 H 03/12/22 11:37 Resp 16 03/12/22 11:37 BP 128/88 03/12/22 11:37 Pulse Ox 94 03/12/22 11:37 O2 Del Method 03/12/22 11:37 O2 Flow Rate 2 03/12/22 08:09 03/11/22 03/12/22 03/12/22 22:59 06:59 14:59 Intake Total 500 / 750 200 / 950 310 / 310 Output Total 600 / 600 300 / 300 Balance 500 / 750 -400 / 350 Weight last 48 hrs Weight 75.75 kg Weight 73.482 kg Physical Exam Narrative: Patient is actively wheezing after home O2 evaluation Did not qualify for oxygen She is hemodynamically stable Awake and alert Currently on room air A. fib RVR Abdomen soft Clinically does not look fluid overloaded Data : 03/12/22 02:36 03/12/22 02:36 A&P Assessment and plan (1) Hypertension: (2) Atrial fibrillation with RVR: (3) Acute exacerbation of chronic obstructive pulmonary disease: (4) Bilateral wheezing: Plan Acute COPD exacerbation A. fib RVR Active wheezing I have decided to keep patient here 1 more day give her IV steroids continue DuoNeb treatment because of her active wheezing Plan to discharge her tomorrow if she has not qualified for oxygen at all on home O2 eval Clinically does not look fluid overloaded Concern for PE is low D-dimer unremarkable Full code Patient is a trilogy inhalers Follows up with general medical practitioner outpatient Continue anticoagulating agent for her A. fib and sotalol Attestations Medical Necessity Statement*: Discharge tomorrow Time Spent in Patient Care: 30 Coding Level of Care Code Acute Animal Taxonomist for Chg Fwd Diagnoses Hypertension I10 Atrial fibrillation with RVR I48.91 Acute exacerbation of chronic obstructive pulmonary disease J44.1 Bilateral wheezing R06.2
[2022-03-12] MEDS: metoprolol tartrate 50 mg Tablet PO (12:45)
[2022-03-12] MEDS: benzonatate 100 mg Capsule 200 MG PO (17:15)
[2022-03-12] MEDS: aspirin 81 mg EC Tablet PO (19:34)
[2022-03-12] MEDS: montelukast sodium 10 mg Tablet PO (19:34)
[2022-03-12] MEDS: atorvastatin 40 mg Tablet 80 MG PO (19:34)
[2022-03-12] MEDS: guaiFENesin-dextromethorphan UDC 10 mL 5 ML PO (19:35)
[2022-03-12] MEDS: trazodone 150 mg Tablet PO (20:27)
[2022-03-12] MEDS: budesonide 0.5 mg/2 mL Neb INHALATION (20:57)
[2022-03-12] MEDS: ALPRAZolam 0.5 mg Tablet PO (21:12)
[2022-03-13] VITALS (8 sets, daily range): BP systolic 123–133; BP diastolic 76–93; PULSE 82–108; RESP 16–18; TEMP 36.4–36.6; O2SAT 92–97
[2022-03-13 02:38] LABS: Hematocrit 41.3 % (37.0-47.0); Hemoglobin 13.1 g/dL (11.5-15.3); Lymphocytes # 0.6 10^3/uL (0.8-4.8); Lymphocytes % 7.7 %; Mean Corpuscular HGB Conc 31.7 g/dL (30.0-36.0); Mean Corpuscular Hemoglobin 30.3 pg (28.0-34.0); Mean Corpuscular Volume 95.4 fl (81-99); Mean Platelet Volume 10.4 fL (7.4-10.4); Monocytes # 0.2 10^3/uL (0.2-0.9); Monocytes % 2.4 %; Neutrophils # 7.34 10^3/uL (1.8-7.7); Neutrophils % 89.5 %; Nucleated Red Blood Cells % 0 %; Platelet Count 157 10^3/cmm (130-400); Red Blood Count 4.33 10^6/uL (4.1-5.3); Red Cell Distribution Width 14.6 % (12.1-15.1); White Blood Count 8.2 10^3/uL (4.0-10.0)
[2022-03-13 02:54] LABS: Anion Gap 13.7 (5-19); Blood Urea Nitrogen 21 mg/dL (8-23); Calcium 9.9 mg/dL (8.5-10.5); Carbon Dioxide 28 mmol/L (22-29); Chloride 99 mmol/L (98-107); Glucose 180 mg/dL (65-115); Osmolality Calculated 290 mOsm/kg (285-295); Potassium 4.7 mmol/L (3.5-5.1); Sodium 136 mmol/L (136-145)
[2022-03-13] MEDS: azithromycin 500 MG in sodium chloride 0.9% 250 ML 250 MG IV (06:08)
[2022-03-13] MEDS: ipratropium 0.5 mg/2.5 mL Neb INHALATION (07:45)
[2022-03-13] MEDS: budesonide 0.5 mg/2 mL Neb INHALATION (07:45)
[2022-03-13] MEDS: pregabalin 100 mg Capsule PO (09:15)
[2022-03-13] MEDS: isosorbide mononitrate ER 60 mg Tablet PO (09:16)
[2022-03-13] MEDS: sotalol 80 mg Tablet 40 MG PO (09:16)
--- NOTE | 2022-03-13 09:57 | P.DS_ITS ---
Discharge Providers Date of Admission: 03/11/22 13:56 Date of Discharge: March 13, 2022 Attending Provider at Admission: Mayo Erickson MD Attending Provider at Discharge: Atilio Astorga MD Primary Care Provider: Ashley Varela NP Diagnoses at Discharge Discharge Diagnosis (1) Hypertension: Status: Acute (2) Atrial fibrillation with RVR: Status: Acute (3) Acute exacerbation of chronic obstructive pulmonary disease: Status: Acute (4) Bilateral wheezing: Status: Acute Reason for Visit Reason for Visit: SOB Hospital Course Hospital Course 71-year female who was admitted for management of acute COPD exacerbation she was put on empirical antibiotic coverage, she was actively wheezing she was given IV steroids, with IV steroids her symptoms improved, she did not qualify for oxygen at the time of discharge, afebrile, cultures negative, no leukocytosis, decision was made to discharge her home on room air with prescription to take Medrol pack for 1 week and follow-up outpatient with Dr. Luke. She does have rescue inhaler and trilogy inhalers at home. She does not want any refills. She has quit smoking a few weeks ago. Her D-dimer was unremarkable. She does complain of muscle soreness because of excessive coughing Physical Exam Narrative: Wheezing improved Currently on room air Abdomen soft Awake and alert Bilateral breath sound with rhonchi no active wheezing S1, S2. Pleasant and cooperative Discharge Data Studies Completed and Pending Completed Studies During Hospitalization Category Date Time Status XR chest 1V portable [id number] Stat Exams 03/10/22 22:12 Completed Pending at discharge Category Date Time Status Basic Metabolic Panel AM LABS Lab 03/14/22 04:00 Ordered Complete Blood Count w/Auto AM LABS Lab 03/14/22 04:00 Ordered Sputum Culture and Gram Stain Routine Lab 03/11/22 17:12 Received Radiology Impressions Chest X-Ray 03/10/22 22:12 IMPRESSION: 1. Negative for infiltrate. 2. Cardiomegaly. Laboratory Results WBC 8.2 10^3/uL (4.0-10.0) 03/13/22 02:26 RBC 4.33 10^6/uL (4.1-5.3) 03/13/22 02:26 Hgb 13.1 g/dL (11.5-15.3) 03/13/22 02:26 Hct 41.3 % (37.0-47.0) 03/13/22 02:26 MCV 95.4 fl (81-99) 03/13/22 02:26 MCH 30.3 pg (28.0-34.0) 03/13/22 02:26 MCHC 31.7 g/dL (30.0-36.0) 03/13/22 02:26 RDW 14.6 % (12.1-15.1) 03/13/22 02:26 Plt Count 157 10^3/cmm (130-400) 03/13/22 02:26 MPV 10.4 fL (7.4-10.4) 03/13/22 02:26 Neut % (Auto) 89.5 % 03/13/22 02:26 Lymph % (Auto) 7.7 % 03/13/22 02:26 [place] % (Auto) 2.4 % 03/13/22 02:26 Eos % (Auto) 0.0 % 03/13/22 02:26 Baso % (Auto) 0.0 % 03/13/22 02:26 Neut # (Auto) 7.34 10^3/uL (1.8-7.7) 03/13/22 02:26 Lymph # (Auto) 0.6 10^3/uL (0.8-4.8) L 03/13/22 02:26 [place] # (Auto) 0.2 10^3/uL (0.2-0.9) 03/13/22 02:26 Eos # (Auto) 0.0 10^3/uL (0.0-0.8) 03/13/22 02:26 Baso # (Auto) 0.0 10^3/uL (0.0-0.1) 03/13/22 02:26 Nucleated RBC % (auto) 0 % 03/13/22 02:26 Nucleated RBCs # 0.0 /100WBC 03/13/22 02:26 D-Dimer 0.48 ug/mIFEU (0-0.59) 03/10/22 22:36 Sodium 136 mmol/L (136-145) 03/13/22 02:26 Potassium 4.7 mmol/L (3.5-5.1) 03/13/22 02:26 Chloride 99 mmol/L (98-107) 03/13/22 02:26 Carbon Dioxide 28 mmol/L (22-29) 03/13/22 02:26 Anion Gap 13.7 (5-19) 03/13/22 02:26 BUN 21 mg/dL (8-23) 03/13/22 02:26 Creatinine 0.7 mg/dL (0.5-0.9) 03/13/22 02:26 GFR Calculation Not Reportable 03/13/22 02:26 Glucose 180 mg/dL (65-115) H 03/13/22 02:26 Calculated Osmolality 290 mOsm/kg (285-295) 03/13/22 02:26 Calcium 9.9 mg/dL (8.5-10.5) 03/13/22 02:26 Magnesium 2.3 mg/dL (1.7-2.3) 03/12/22 02:36 Troponin T Baseline 19 ng/L (0-10) H 03/10/22 22:36 Troponin T 120 Minute 18.55 ng/L (0-10) H 03/11/22 00:14 Delta Troponin T -0.45 ABS# (0-10) L 03/11/22 00:14 Troponin T Hi Sens 6Hr 14.66 ng/L (0-10) H 03/11/22 04:10 Troponin T Hi Sens 6Hr Delta -4.34 ng/L (0-12) L 03/11/22 04:10 NT-Pro-B Natriuret Pep 3352 pg/mL (0-125) H 03/10/22 22:36 Procalcitonin 0.02 ng/mL (0-0.5) 03/12/22 02:36 Nasal Influ A H1 2008 PCR Cancelled 03/10/22 23:07 Influenza A (H1) PCR Cancelled 03/10/22 23:07 Influenza A (H3) PCR Cancelled 03/10/22 23:07 Influenza Type A Ag negative (Negative) 03/10/22 23:07 Influenza Type A (PCR) Cancelled 03/10/22 23:07 Influenza Type B Ag negative (Negative) 03/10/22 23:07 Influenza Type B (PCR) Cancelled 03/10/22 23:07 SARS-CoV-2 Ag (Rapid) negative (Negative) 03/10/22 23:05 Vitals Last Vital Signs Temp 97.6 F 03/13/22 04:00 Pulse 83 03/13/22 08:00 Resp 16 03/13/22 08:00 BP 123/77 03/13/22 08:00 Pulse Ox 97 03/13/22 08:00 O2 Del Method 03/13/22 08:00 O2 Flow Rate 2 03/12/22 13:00 Discharge Plan Discharge Patient Disposition: Home Condition: Stable Prescriptions: New azithromycin 500 mg tablet 500 mg PO DAILY 3 Days Qty: 3 0RF methylprednisolone [Medrol (Keven)] 4 mg tablets,dose pack 4 mg PO DAILY Qty: 21 0RF Continued acetaminophen 650 mg tablet extended release 650 mg PO Q12H aspirin 81 mg tablet,delayed release (DR/EC) 81 mg PO DAILY atorvastatin 80 mg tablet 80 mg PO QPM B-100 Complex 100 mg tablet extended release 1 tab PO DAILY vitamin D3-vitamin K2 5,500-200 unit-mcg tablet 1 tab PO Q2D donepezil 10 mg tablet 10 mg PO DAILY meloxicam 15 mg tablet 15 mg PO DAILY montelukast 10 mg tablet 10 mg PO QPM multivitamin Tablet 1 tab PO DAILY nitroglycerin [Nitrostat] 0.4 mg tablet, sublingual 0.4 mg sublingual Q5M PRN (Reason: Chest Pain) Rx Instructions: do not exceed 3 doses per episode pantoprazole 40 mg tablet,delayed release (DR/EC) 40 mg PO BID potassium chloride 10 mEq tablet extended release 10 meq PO DAILY sotalol 80 mg tablet 40 mg PO BID tizanidine 4 mg capsule 4 mg PO Q8H PRN (Reason: SEE PHARMACY COMMENT) trazodone 150 mg tablet 150 mg PO BEDTIME dicyclomine 20 mg tablet 20 mg PO QID PRN (Reason: PAIN) pregabalin 100 mg capsule 100 mg PO BID albuterol sulfate 90 mcg/actuation HFA aerosol inhaler 2 puff inhalation Q6H PRN (Reason: shortness of breath or wheezing) Qty: 8.5 5RF ferrous sulfate 325 mg (65 mg iron) tablet 325 mg PO DAILY Eliquis 5 mg tablet 5 mg PO BID Qty: 180 3RF amlodipine 10 mg tablet 10 mg PO DAILY Trelegy Ellipta 100-62.5-25 mcg blister with device 1 inh inhalation DAILY Qty: 60 6RF ipratropium-albuterol 0.5 mg-3 mg(2.5 mg base)/3 mL solution for nebulization 3 ml inhalation Q6H PRN (Reason: shortness of breath or wheezing) Qty: 180 4RF Changed furosemide 40 mg tablet 20 mg PO DAILY Qty: 10 0RF Discontinued isosorbide mononitrate 60 mg tablet extended release 24 hr 60 mg PO DAILY Discharge Orders: Discharge Order (Routine); Ordered 03/13/22 Ordered By: Atilio Astorga Referrals: Ashley Varela NP [Primary Care Provider] - 03/17/22 2:00 pm Datar,Chris Gonsalves MD [Physician] - 1 month Discharge Diet: Cardiac Discharge Activity: Increase activity as tolerated Patient Instructions: Hypertension, A-fib (Atrial Fibrillation) (GEN), COPD (Chronic Obstructive Pulmonary Disease) (DC), Opioid Safety Discharge Attestations Time Spent in Discharge Care*: less than 30 min Quality Metrics Clinical Quality Measures [ No reported AMI, CVA or VTE this stay] Coding Level of Care Code Acute Chg FW DC note Diagnoses Hypertension I10 Atrial fibrillation with RVR I48.91 Acute exacerbation of chronic obstructive pulmonary disease J44.1 Bilateral wheezing R06.2
--- NOTE | 2022-03-13 11:39 | PC.NURSE ---
Patient discharged via wheelchair to main entrance. IV taken out. Instructions on medication and follow up appointments given. Patient verbalized understanding. All belongings with patient, including wallet from [employer], with patient at discharge.
== END 2022-03-13 11:42 | disposition home or self-care (01) | DRG 192 ==
LOC: ER 03-11 03:13 → MEDSURG 03-11 16:41
PROVIDERS: Emergency Medicine; Admitting Provider Internal Medicine; Emergency Provider Emergency Medicine; PCP Nurse Practitioner Family; Visit Provider Internal Medicine
DX: J44.1 Chronic obstructive pulmonary disease with (acute) exacerbation (principal); F17.210 Nicotine dependence, cigarettes, uncomplicated; I48.91 Unspecified atrial fibrillation; Z95.1 Presence of aortocoronary bypass graft; I10 Essential (primary) hypertension; I25.10 Atherosclerotic heart disease of native coronary artery without angina pectoris; E78.5 Hyperlipidemia, unspecified
CPT/HCPCS: 36415; 71045; 80048; 83735; 83880; 84145; 84484; 85025; 85378; 87070; 87077; 87186; 87205; 87426; 87804; 93005; 94640; 94760; 96365; 96367; 96375; 96376; 99291; J0456; J2920; J2930; J3490; J7050; J7614; J7626; J7644

== ENCOUNTER 2022-04-11 10:58 | Emergency (ER) | payer MEDICARE, MEDICAID, SELFPAY ==
[2022-04-11] VITALS (17 sets, daily range): BP systolic 123–160; BP diastolic 99–131; PULSE 85–115; RESP 7–31; TEMP 36.4; O2SAT 90–97; BMI 28.9
--- NOTE | 2022-04-11 11:15 | XRR_ITS ---
PROCEDURE INFORMATION: Exam: XR Chest Exam date and time: 04/11/2022 12:22 PM Age: 71 years old Clinical indication: Pain; Chest pressure; Additional info: Chest pain TECHNIQUE: Imaging protocol: Radiologic exam of the chest. Views: 1 view. COMPARISON: CR (CHEST, ) 03/10/2022 10:17 PM FINDINGS: Lungs: Unremarkable. No consolidation. Pleural spaces: Unremarkable. No pleural effusion. No pneumothorax. Heart/Mediastinum: Unremarkable. No cardiomegaly. Bones/joints: Metallic sternotomy wires are present. Metallic orthopedic hardware is seen in the cervical spine. These findings are stable since prior examination. XR/XR chest 1V portable [id number] IMPRESSION: 1. Negative for acute abnormality. 2. Metallic sternotomy wires are present. 3. Metallic orthopedic hardware cervical spine
--- NOTE | 2022-04-11 11:16 | W.ED.CHESTPA ---
HPI - Chest Pain General: Chief Complaint: Chest Pain Stated Complaint: CHEST PAIN; SOB Time Seen by Provider: 04/11/22 11:04 Source: patient Mode of arrival: ambulatory History of Present Illness: 71-year-old female presents emergency room complaining of intermittent chest pain she does not have any chest pain and now generally just not feeling well and is noted increased fluid retention particularly in the lower extremities some abdominal distention. No vomiting no diarrhea. Not had any fever sweats or chills. She has been taking nitroglycerin sublingual couple times a weeks. MD complaint: chest pain Onset (ago): hour(s) Prior episodes: Yes Pain radiation: none Severity: mild Quality: heaviness (Oknovember none now) Relieving factors: nothing Exacerbating factors: nothing Associated symptoms: Reports leg edema; Deny abdominal pain, diaphoresis, dyspnea, fever(s), nausea, palpitations, sense of impending doom, syncope or vomiting Review of Systems Const: Denies: fever(s), chills, fatigue, malaise or diaphoresis ENMT: Denies: throat pain, ear or mastoid pain, nasal discharge or nasal congestion Card: Reports: chest pain and irregular heart rhythm; Denies: palpitations or syncope Resp: Denies: dyspnea GI: Denies: abdominal pain, nausea or vomiting : Denies: flank pain, difficulty voiding, dysuria, urinary frequency or urinary urgency Musc: Denies: neck pain or back pain Skin/Breast: Denies: rash or pruritus PFS ED PFSH: Medical History Acute exacerbation of chronic obstructive pulmonary disease Allergic rhinitis Atrial fibrillation Atrial fibrillation with RVR Bilateral wheezing CAD (coronary artery disease) Chronic low back pain GERD (gastroesophageal reflux disease) HTN (hypertension) Hyperlipidemia Hypertension IBS (irritable bowel syndrome) Insomnia Memory loss Surgical History History of coronary artery stent placement Hx of coronary artery bypass graft S/P triple vessel bypass Family History Other CAD (coronary artery disease) Dementia Family history of premature coronary artery disease Hypertension Social History Smoking and tobacco status: current every day smoker cigarettes Packs smoked per day: 1 Years cigarettes smoked: 55 [ Other cigarette details: 4 cigarettes per day currently] Female Reproductive History: Date of last menstrual period: 10/29/05 Physical Exam Const: GENERAL APPEARANCE: cooperative and comfortable ORIENTATION/CONSCIOUSNESS: Yes awake, Yes oriented to person, Yes oriented to place and Yes oriented to time HENMT: COMMON NORMALS: normocephalic, atraumatic and hearing grossly normal bilaterally HEAD & SCALP: normocephalic and atraumatic Resp: COMMON NORMALS: normal respiratory effort, No retractions and No use of accessory muscles AUSCULTATION: crackles (Few crackles at the bases.) Cardio: COMMON NORMALS: regular rate and No murmurs present (Cardio) RATE: regular rate RHYTHM: abnormal rhythm irregularly irregular GI: COMMON NORMALS: Soft to palpation and No hepatosplenomegaly present AUSCULTATION: Yes normoactive bowel sounds PALPATION: Yes Soft to palpation, No Tenderness to palpation present (GI), No Guarding due to palpation present (GI) and Yes No hepatosplenomegaly present : COMMON NORMALS: Yes no CVA tenderness BLADDER/KIDNEY EXAM: Yes no CVA tenderness Back/Pelvis: COMMON NORMALS: no CVA tenderness Extremity: COMMON NORMALS: normal to inspection, capillary refill normal, no clubbing, cyanosis or edema, no calf tenderness and no pedal edema Neuro: SENSORIUM/ORIENTATION: Yes oriented to person, Yes oriented to place and Yes oriented to time Skin: COMMON NORMALS: no rashes or lesions noted GENERAL SKIN EXAM: no rashes or lesions noted Course Vital Signs: Vital signs: Vital Signs Temperature 97.6 F 04/11/22 11:04 Pulse Rate 100 04/11/22 15:00 Respiratory Rate 13 04/11/22 15:00 Blood Pressure 154/117 04/11/22 14:30 Pulse Oximetry 95 04/11/22 15:00 Oxygen Delivery Me thod 04/11/22 13:45 MDM - Chest Pain Medical Decision Making Improved after diuresis blood pressure still elevated. We will double her Lasix and her potassium for the next 3 days follow-up with cardiology next week add isosorbide mononitrate 30 mg daily and recheck with her primary care doctor or her dental assisting instructor within the next week. Medical Records I reviewed the patient's medical records. Lab Data I reviewed the patient's lab results. : 04/11/22 11:17 04/11/22 11:17 Radiology Impressions Chest X-Ray 04/11/22 11:15 IMPRESSION: 1. Negative for acute abnormality. 2. Metallic sternotomy wires are present. 3. Metallic orthopedic hardware cervical spine Laboratory Results WBC 4.9 10^3/uL (4.0-10.0) 04/11/22 11:17 RBC 3.58 10^6/uL (4.1-5.3) L 04/11/22 11:17 Hgb 11.1 g/dL (11.5-15.3) L 04/11/22 11:17 Hct 34.9 % (37.0-47.0) L 04/11/22 11:17 MCV 97.5 fl (81-99) 04/11/22 11:17 MCH 31.0 pg (28.0-34.0) 04/11/22 11:17 MCHC 31.8 g/dL (30.0-36.0) 04/11/22 11:17 RDW 15.1 % (12.1-15.1) 04/11/22 11:17 Plt Count 166 10^3/cmm (130-400) 04/11/22 11:17 MPV 10.1 fL (7.4-10.4) 04/11/22 11:17 Neut % (Auto) 71.1 % 04/11/22 11:17 Lymph % (Auto) 19.8 % 04/11/22 11:17 [place] % (Auto) 6.7 % 04/11/22 11:17 Eos % (Auto) 1.6 % 04/11/22 11:17 Baso % (Auto) 0.4 % 04/11/22 11:17 Neut # (Auto) 3.48 10^3/uL (1.8-7.7) 04/11/22 11:17 Lymph # (Auto) 1.0 10^3/uL (0.8-4.8) 04/11/22 11:17 [place] # (Auto) 0.3 10^3/uL (0.2-0.9) 04/11/22 11:17 Eos # (Auto) 0.1 10^3/uL (0.0-0.8) 04/11/22 11:17 Baso # (Auto) 0.0 10^3/uL (0.0-0.1) 04/11/22 11:17 Nucleated RBC % (auto) 0 % 04/11/22 11:17 Nucleated RBCs # 0.0 /100WBC 04/11/22 11:17 Sodium 139 mmol/L (136-145) 04/11/22 11:17 Potassium 4.4 mmol/L (3.5-5.1) 04/11/22 11:17 Chloride 105 mmol/L (98-107) 04/11/22 11:17 Carbon Dioxide 24 mmol/L (22-29) 04/11/22 11:17 Anion Gap 14.4 (5-19) 04/11/22 11:17 BUN 17 mg/dL (8-23) 04/11/22 11:17 Creatinine 1.1 mg/dL (0.5-0.9) H 04/11/22 11:17 GFR Calculation Not Reportable 04/11/22 11:17 Glucose 130 mg/dL (65-115) H 04/11/22 11:17 Calculated Osmolality 291 mOsm/kg (285-295) 04/11/22 11:17 Calcium 8.6 mg/dL (8.5-10.5) 04/11/22 11:17 Total Bilirubin 0.5 mg/dL (0.15-1.2) 04/11/22 11:17 AST 31 U/L (0-32) 04/11/22 11:17 ALT 21 U/L (0-33) 04/11/22 11:17 Alkaline Phosphatase 172 U/L (35-105) H 04/11/22 11:17 Troponin T Baseline 17 ng/L (0-10) H 04/11/22 11:17 Troponin T 120 Minute 17.95 ng/L (0-10) H 04/11/22 13:22 Delta Troponin T 0.95 ABS# (0-10) 04/11/22 13:22 NT-Pro-B Natriuret Pep 8037 pg/mL (0-125) H 04/11/22 11:17 Total Protein 5.9 g/dL (6.6-8.7) L 04/11/22 11:17 Albumin 3.5 g/dL (3.5-5.2) 04/11/22 11:17 Globulin 2.4 g/dL (1.3-4.6) 04/11/22 11:17 Discharge Plan Discharge Patient Disposition: Home Clinical Impression: Chest pain, Benign essential HTN, Edema Condition: Stable Prescriptions: New isosorbide mononitrate 30 mg tablet extended release 24 hr 30 mg PO DAILY Qty: 30 0RF nitroglycerin 0.4 mg tablet, sublingual 0.4 mg sublingual Q5M PRN (Reason: chest pain) Qty: 30 0RF Rx Instructions: do not exceed 3 doses per episode No Action acetaminophen 650 mg tablet extended release 650 mg PO Q12H aspirin 81 mg tablet,delayed release (DR/EC) 81 mg PO DAILY atorvastatin 80 mg tablet 80 mg PO QPM B-100 Complex 100 mg tablet extended release 1 tab PO DAILY vitamin D3-vitamin K2 5,500-200 unit-mcg tablet 1 tab PO Q2D donepezil 10 mg tablet 10 mg PO DAILY meloxicam 15 mg tablet 15 mg PO DAILY montelukast 10 mg tablet 10 mg PO QPM multivitamin Tablet 1 tab PO DAILY nitroglycerin [Nitrostat] 0.4 mg tablet, sublingual 0.4 mg sublingual Q5M PRN (Reason: Chest Pain) Rx Instructions: do not exceed 3 doses per episode pantoprazole 40 mg tablet,delayed release (DR/EC) 40 mg PO BID potassium chloride 10 mEq tablet extended release 10 meq PO DAILY sotalol 80 mg tablet 40 mg PO BID tizanidine 4 mg capsule 4 mg PO Q8H PRN (Reason: Muscle Pain) trazodone 150 mg tablet 150 mg PO BEDTIME dicyclomine 20 mg tablet 20 mg PO QID PRN (Reason: PAIN) pregabalin 100 mg capsule 100 mg PO BID albuterol sulfate 90 mcg/actuation HFA aerosol inhaler 2 puff inhalation Q6H PRN (Reason: shortness of breath or wheezing) Qty: 8.5 5RF ferrous sulfate 325 mg (65 mg iron) tablet 325 mg PO BID Eliquis 5 mg tablet 5 mg PO BID Qty: 180 3RF Trelegy Ellipta 100-62.5-25 mcg blister with device 1 inh inhalation DAILY Qty: 60 6RF amlodipine 10 mg tablet 10 mg PO DAILY furosemide 40 mg tablet 20 mg PO DAILY Qty: 10 0RF ipratropium-albuterol 0.5 mg-3 mg(2.5 mg base)/3 mL solution for nebulization 3 ml inhalation Q6H PRN (Reason: shortness of breath or wheezing) Qty: 180 4RF Discharge Orders: Discharge ED (Routine); Ordered 04/11/22 Ordered By: Joe Montgomery Referrals: Ashley Varela, FLOOR TRADER [Primary Care Provider] - Discharge Diet: Usual diet Discharge Activity: Limit activity as instructed Patient Instructions: Opioid Safety, Pain Management Activity Restrictions/Additional Instructions: Increase Lasix to 40 mg once daily for the next 3 days. Increase potassium to 20 mEq daily for the next 3 days. Start isosorbide mononitrate 30 mg once daily. Follow-up with Dr. Guillen within the next week. Coding Level of Care Code ED Termite Control Servicer for Con Hinojosa
[2022-04-11 11:25] LABS: Basophils % 0.4 %; Eosinophils # 0.1 10^3/uL (0.0-0.8); Eosinophils % 1.6 %; Hematocrit 34.9 % (37.0-47.0); Hemoglobin 11.1 g/dL (11.5-15.3); Lymphocytes % 19.8 %; Mean Corpuscular HGB Conc 31.8 g/dL (30.0-36.0); Mean Corpuscular Volume 97.5 fl (81-99); Mean Platelet Volume 10.1 fL (7.4-10.4); Monocytes # 0.3 10^3/uL (0.2-0.9); Monocytes % 6.7 %; Neutrophils # 3.48 10^3/uL (1.8-7.7); Neutrophils % 71.1 %; Nucleated Red Blood Cells % 0 %; Platelet Count 166 10^3/cmm (130-400); Red Blood Count 3.58 10^6/uL (4.1-5.3); Red Cell Distribution Width 15.1 % (12.1-15.1); White Blood Count 4.9 10^3/uL (4.0-10.0)
[2022-04-11 11:43] LABS: Alanine Aminotransferase 21 U/L (0-33); Albumin Level 3.5 g/dL (3.5-5.2); Alkaline Phosphatase 172 U/L (35-105); Aspartate Amino Transferase 31 U/L (0-32); Blood Urea Nitrogen 17 mg/dL (8-23); Calcium 8.6 mg/dL (8.5-10.5); Carbon Dioxide 24 mmol/L (22-29); Chloride 105 mmol/L (98-107); Globulin 2.4 g/dL (1.3-4.6); Glucose 130 mg/dL (65-115); Osmolality Calculated 291 mOsm/kg (285-295); Sodium 139 mmol/L (136-145); Total Bilirubin 0.5 mg/dL (0.15-1.2); Total Protein 5.9 g/dL (6.6-8.7)
[2022-04-11 11:45] LABS: Anion Gap 14.4 (5-19); Potassium 4.4 mmol/L (3.5-5.1); Troponin(5th) Baseline 17 ng/L (0-10)
--- NOTE | 2022-04-11 11:55 | ECG_ITS ---
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 Measurements Intervals [place] Rate: 94 P: 0 DE: 0 QRS: 112 QRSD: 100 T: 10 QT: 377 QTc: 474 Interpretive Statements ATRIAL FIBRILLATION WITH ABERRANT CONDUCTION OR VENTRICULAR PREMATURE COMPLEXES POSSIBLE RIGHT VENTRICULAR HYPERTROPHY [SOME/ALL OF: PROMINENT R IN V1, LATE TRANSITION, RAD, TONG, SSS] NONSPECIFIC T-WAVE ABNORMALITY Compared to ECG 03/11/2022 04:13:18 Right-axis deviation no longer present T-wave abnormality still present Electronically Signed On 04-11-2022 15:13:33 OPHTHALMIC NURSE by Rufus Richard M.D. [id number]
[2022-04-11] MEDS: FUROsemide 10 mg/mL SDV 4mL 40 MG IVP (12:07)
[2022-04-11 12:30] LABS: NT Pro B Type Natriuretic Pept 8037 pg/mL (0-125)
--- NOTE | 2022-04-11 13:28 | ECG_ITS ---
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 Measurements Intervals [place] Rate: 90 P: 0 [place]: 0 QRS: 113 QRSD: 99 T: 38 QT: 366 QTc: 450 Interpretive Statements ATRIAL FIBRILLATION with aberrantly conducted beats POSSIBLE RIGHT VENTRICULAR HYPERTROPHY [SOME/ALL OF: PROMINENT R IN V1, LATE TRANSITION, RAD, TONG, SSS] NONSPECIFIC T-WAVE ABNORMALITY Compared to ECG 04/11/2022 11:55:18 Ventricular premature complex(es) no longer present Aberrant conduction of supraventricular beat(s) no longer present T-wave abnormality still present Electronically Signed On 04-11-2022 15:33:57 SALES REPRESENTATIVE FACILITY SERVICES by Rufus Richard M.D. [id number]
[2022-04-11 13:56] LABS: Troponin 5 2HR 17.95 ng/L (0-10)
[2022-04-11 14:19] LABS: Troponin 5 2HR Delta 0.95 ABS# (0-10)
== END 2022-04-11 15:20 | disposition home or self-care (01) ==
PROVIDERS: Emergency Provider Family Medicine; PCP Nurse Practitioner Family
DX: R07.9 Chest pain, unspecified (principal); I10 Essential (primary) hypertension; R60.0 Localized edema; Z79.82 Long term (current) use of aspirin; Z79.01 Long term (current) use of anticoagulants; J44.9 Chronic obstructive pulmonary disease, unspecified; I25.10 Atherosclerotic heart disease of native coronary artery without angina pectoris; E78.5 Hyperlipidemia, unspecified; Z95.1 Presence of aortocoronary bypass graft; F17.210 Nicotine dependence, cigarettes, uncomplicated
CPT/HCPCS: 71045; 80053; 83880; 84484; 85025; 93005; 96374; 99285; J1940

== ENCOUNTER → 2022-05-11 11:07 | Outpatient (BNVA) | payer MEDICARE, MEDICAID, SELFPAY | PROVIDERS: PCP Nurse Practitioner Family; Visit Provider Nurse Practitioner Family | DX: R60.0 Localized edema (principal); F17.210 Nicotine dependence, cigarettes, uncomplicated; E78.5 Hyperlipidemia, unspecified | CPT/HCPCS: 36415; 80048; 83880; 99214 ==

== ENCOUNTER 2022-05-23 07:58 | Inpatient (IN) | payer MEDICARE, MEDICAID, SELFPAY ==
[2022-05-23] VITALS (11 sets, daily range): BP systolic 121–158; BP diastolic 65–112; PULSE 96–145; RESP 16–25; TEMP 36.9–38.1; O2SAT 93–98
--- NOTE | 2022-05-23 08:09 | XRR_ITS ---
PROCEDURE INFORMATION: Exam: XR Chest Exam date and time: 05/23/2022 8:20 AM Age: 71 years old Clinical indication: Pain; Chest pressure; Additional info: Cp TECHNIQUE: Imaging protocol: Radiologic exam of the chest. Views: 1 view. Total images: 239 COMPARISON: CR (CHEST, ) 04/11/2022 12:22 PM FINDINGS: Lungs: Trace atelectasis or scar noted in the left lung base. Pleural spaces: Unremarkable. No pleural effusion. No pneumothorax. Heart/Mediastinum: Heart is enlarged but stable when compared to the prior exam. Bones/joints: Spinal fusion hardware noted. Changes of sternotomy are noted. Other findings: Stable postsurgical changes. XR/XR chest 1V portable [id number] IMPRESSION: 1. Heart is enlarged but stable when compared to the prior exam. 2. Trace atelectasis or scar noted in the left lung base.
--- NOTE | 2022-05-23 08:16 | ED_ITS ---
Documented by User: DOYLE Arnold 05/23/22 08:56 HPI - Chest Pain General: Chief Complaint: Shortness of Breath/Dyspnea Stated Complaint: SOB; CHEST PAIN Time Seen by Provider: 05/23/22 08:09 History of Present Illness: Patient is a 71-year-old female comes to the ED with shortness of breath and chest pain. She has a past medical history of triple bypass, A. fib, and COPD and is not on any oxygen at home. Chest pain started at rest approximately 3 days ago. Continue to get worse with past couple days and this morning patient took 2 nitro. Her chest pain resolved after the nitro. Here in the ED she is not having any current chest pain. Her other complaint is shortness of breath that started yesterday. She endorses having a dry cough along with nasal congestion and drainage that started yesterday as well. Denies any fevers, vomiting, dysuria or hematuria. Patient does endorse having some nausea. Associated symptoms: Reports dyspnea and nausea; Deny abdominal pain, fever(s), palpitations or vomiting Review of Systems Const: Denies: fever(s), chills or fatigue Eyes: Denies: change in vision or eye discomfort ENMT: Reports: nasal discharge and nasal congestion; Denies: throat pain or odynophagia Card: Reports: chest pain; Denies: palpitations, edema, swelling of feet/ankles, dyspnea on exertion or orthopnea Resp: Reports: dyspnea; Denies: productive cough or non-productive cough GI: Reports: nausea; Denies: abdominal pain, vomiting, diarrhea, constipation or hematochezia : Denies: flank pain, dysuria or hematuria Musc: Denies: neck pain, back pain or extremity swelling Skin/Breast: Denies: rash or new lesions Neuro: Denies: headache(s), numbness in extremities or weakness in extremities PFSH ED PFSH: Medical History Acute exacerbation of chronic obstructive pulmonary disease Allergic rhinitis Atrial fibrillation Atrial fibrillation with RVR Bilateral wheezing CAD (coronary artery disease) Chronic low back pain GERD (gastroesophageal reflux disease) HTN (hypertension) Hyperlipidemia Hypertension IBS (irritable bowel syndrome) Insomnia Memory loss Surgical History History of coronary artery stent placement Hx of coronary artery bypass graft S/P triple vessel bypass Family History Other CAD (coronary artery disease) Dementia Family history of premature coronary artery disease Hypertension Social History Smoking and tobacco status: current every day smoker cigarettes Packs smoked per day: 1 Years cigarettes smoked: 55 [ Other cigarette details: 4 cigarettes per day currently] Female Reproductive History: Date of last menstrual period: 10/29/05 Physical Exam Const: COMMON NORMALS: patient oriented x3 and alert GENERAL APPEARANCE: cooperative HENMT: COMMON NORMALS: normocephalic HEAD & SCALP: normocephalic MOUTH: Normal oral and palatal mucosa present THROAT: posterior oropharynx normal and uvula midline Neck/C-Spine: COMMON NORMALS: supple GENERAL: Yes normal visual inspection Resp: COMMON NORMALS: normal respiratory effort, No retractions and No use of accessory muscles AUSCULTATION: wheezes Cardio: COMMON NORMALS: regular rate, regular rhythm, S1 normal heart sound present, S2 normal heart sound present, No gallops present (Cardio), No clicks present (Cardio), No murmurs present (Cardio) and Peripheral pulses 2+ throughout RATE: regular rate RHYTHM: regular rhythm HEART SOUNDS: S1 normal heart sound present and S2 normal heart sound present PERIPHERAL PULSES: Peripheral pulses 2+ throughout GI: COMMON NORMALS: Normal to inspection, nondistended, normoactive bowel sounds present, Soft to palpation, non-tender and no masses PALPATION: Yes Soft to palpation : COMMON NORMALS: Yes no CVA tenderness BLADDER/KIDNEY EXAM: Yes no CVA tenderness Back/Pelvis: COMMON NORMALS: no CVA tenderness Extremity: COMMON NORMALS: normal to inspection Neuro: COMMON NORMALS: patient oriented x3 SENSORIUM/ORIENTATION: Yes alert GAIT: Yes Normal gait present Skin: GENERAL SKIN EXAM: dry skin Course Vital Signs: Vital signs: Vital Signs Temperature 100.6 F H 05/23/22 08:07 Pulse Rate 121 H 05/23/22 10:27 Respiratory Rate 18 05/23/22 10:27 Blood Pressure 154/87 05/23/22 10:27 Pulse Oximetry 93 05/23/22 10:27 Oxygen Delivery Me thod 05/23/22 09:07 Oxygen Flow Rate 2 05/23/22 09:07 MDM - Chest Pain Medical Decision Making I performed initial history, physical exam and lab work-up of patient. Case is then transferred over to Dr. Montgomery for further care and management. Lab Data 05/23/22 09:30 05/23/22 09:30 Radiology Impressions Chest X-Ray 05/23/22 08:09 IMPRESSION: 1. Heart is enlarged but stable when compared to the prior exam. 2. Trace atelectasis or scar noted in the left lung base. Laboratory Results WBC 10.9 10^3/uL (4.0-10.0) H 05/23/22 09:30 RBC 3.74 10^6/uL (4.1-5.3) L 05/23/22 09:30 Hgb 11.6 g/dL (11.5-15.3) 05/23/22 09:30 Hct 36.7 % (37.0-47.0) L 05/23/22 09:30 MCV 98.1 fl (81-99) 05/23/22 09:30 MCH 31.0 pg (28.0-34.0) 05/23/22 09:30 MCHC 31.6 g/dL (30.0-36.0) 05/23/22 09:30 RDW 14.6 % (12.1-15.1) 05/23/22 09:30 Plt Count 191 10^3/cmm (130-400) 05/23/22 09:30 MPV 10.7 fL (7.4-10.4) H 05/23/22 09:30 Neut % (Auto) 89.0 % 05/23/22 09:30 Lymph % (Auto) 4.2 % 05/23/22 09:30 Gage % (Auto) 5.5 % 05/23/22 09:30 Eos % (Auto) 0.3 % 05/23/22 09:30 Baso % (Auto) 0.6 % 05/23/22 09:30 Neut # (Auto) 9.67 10^3/uL (1.8-7.7) H 05/23/22 09:30 Lymph # (Auto) 0.5 10^3/uL (0.8-4.8) L 05/23/22 09:30 Gage # (Auto) 0.6 10^3/uL (0.2-0.9) 05/23/22 09:30 Eos # (Auto) 0.0 10^3/uL (0.0-0.8) 05/23/22 09:30 Baso # (Auto) 0.1 10^3/uL (0.0-0.1) 05/23/22 09:30 Nucleated RBC % (auto) 0 % 05/23/22 09:30 Nucleated RBCs # 0.0 /100WBC 05/23/22 09:30 Sodium 138 mmol/L (136-145) 05/23/22 09:30 Potassium 4.7 mmol/L (3.5-5.1) 05/23/22 09:30 Chloride 101 mmol/L (98-107) 05/23/22 09:30 Carbon Dioxide 23 mmol/L (22-29) 05/23/22 09:30 Anion Gap 18.7 (5-19) 05/23/22 09:30 BUN 19 mg/dL (8-23) 05/23/22 09:30 Creatinine 1.1 mg/dL (0.5-0.9) H 05/23/22 09:30 GFR Calculation Not Reportable 05/23/22 09:30 Glucose 112 mg/dL (65-115) 05/23/22 09:30 Calculated Osmolality 289 mOsm/kg (285-295) 05/23/22 09:30 Lactic Acid 1.8 mmol/L (0.5-2.2) 05/23/22 09:30 Calcium 9.5 mg/dL (8.5-10.5) 05/23/22 09:30 Magnesium 2.3 mg/dL (1.7-2.3) 05/23/22 09:30 Total Bilirubin 1.2 mg/dL (0.15-1.2) 05/23/22 09:30 AST 37 U/L (0-32) H 05/23/22 09:30 ALT 28 U/L (0-33) 05/23/22 09:30 Alkaline Phosphatase 181 U/L (35-105) H 05/23/22 09:30 Troponin T Baseline 16 ng/L (0-10) H 05/23/22 09:30 NT-Pro-B Natriuret Pep 78673 pg/mL (0-125) H 05/23/22 09:30 Total Protein 7.0 g/dL (6.6-8.7) 05/23/22 09:30 Albumin 4.5 g/dL (3.5-5.2) 05/23/22 09:30 Globulin 2.5 g/dL (1.3-4.6) 05/23/22 09:30 Urine Color Yellow (Yellow) 05/23/22 11:30 Urine Appearance Clear (CLEAR) 05/23/22 11:30 Urine pH 6 (5-7) 05/23/22 11:30 Ur Specific Stover 1.015 (1.005-1.030) 05/23/22 11:30 Urine Protein Neg (Negative) 05/23/22 11:30 Urine Glucose (UA) Norm (Normal) 05/23/22 11:30 Urine Ketones 1+ (Negative) H 05/23/22 11:30 Urine Blood Neg (Negative) 05/23/22 11:30 Urine Nitrate Negative (Negative) 05/23/22 11:30 Urine Bilirubin Neg (Negative) 05/23/22 11:30 Urine Urobilinogen Norm mg/dL (Negative) 05/23/22 11:30 Ur Leukocyte Esterase Negative (Negative) 05/23/22 11:30 Influenza Type A Ag negative (Negative) 05/23/22 08:28 Influenza Type B Ag negative (Negative) 05/23/22 08:28 SARS-CoV-2 Ag (Rapid) negative (Negative) 05/23/22 08:28 Discharge Plan Discharge Patient Disposition: Admitted As Inpatient Clinical Impression: Atrial fibrillation with RVR, Community acquired pneumonia, Acute exacerbation of chronic obstructive airways disease, Congestive heart failure Condition: Stable Sign Out Sign Out Data: Patient Sign Out occurred on 05/23/22 at 09:01. Patient's care was discussed, and care was transferred from to Joe Montgomery DO. Coding Level of Care Code ED Director Of Kids for Chg Fwd Exam Comprehensive Documented by User: Joe Montgomery DO 05/23/22 12:08 HPI - Chest Pain General: Chief Complaint: Shortness of Breath/Dyspnea Stated Complaint: SOB; CHEST PAIN Time Seen by Provider: 05/23/22 08:09 [facility] ED PFSH: Medical History Acute exacerbation of chronic obstructive pulmonary disease Allergic rhinitis Atrial fibrillation Atrial fibrillation with RVR Bilateral wheezing CAD (coronary artery disease) Chronic low back pain GERD (gastroesophageal reflux disease) HTN (hypertension) Hyperlipidemia Hypertension IBS (irritable bowel syndrome) Insomnia Memory loss Surgical History History of coronary artery stent placement Hx of coronary artery bypass graft S/P triple vessel bypass Family History Other CAD (coronary artery disease) Dementia Family history of premature coronary artery disease Hypertension Social History Smoking and tobacco status: current every day smoker cigarettes Packs smoked per day: 1 Years cigarettes smoked: 55 [ Other cigarette details: 4 cigarettes per day currently] Course Vital Signs: Vital signs: Vital Signs Temperature 100.6 F H 05/23/22 08:07 Pulse Rate 121 H 05/23/22 10:27 Respiratory Rate 18 05/23/22 10:27 Blood Pressure 154/87 05/23/22 10:27 Pulse Oximetry 93 05/23/22 10:27 Oxygen Delivery Me thod 05/23/22 09:07 Oxygen Flow Rate 2 05/23/22 09:07 MDM - Chest Pain Medical Decision Making I performed initial history, physical exam and lab work-up of patient. Case is then transferred over to Dr. Montgomery for further care and management. Assumed care from midlevel. Chart reviewed patient examined findings consistent with what was documented by midlevel. Patient in A. fib with RVR question perihilar pneumonia additionally her BNP is elevated she has some component of congestive heart failure. Low-grade fever present flu and COVID are negative. She was started on Cardizem given her oral dose of sotalol. Titrated Cardizem up rate is relatively well controlled now between 101 110 we will admit to CSU orders written. Medical Records I reviewed the patient's medical records. Lab Data I reviewed the patient's lab results. 05/23/22 09:30 05/23/22 09:30 Radiology Impressions Chest X-Ray 05/23/22 08:09 IMPRESSION: 1. Heart is enlarged but stable when compared to the prior exam. 2. Trace atelectasis or scar noted in the left lung base. Laboratory Results WBC 10.9 10^3/uL (4.0-10.0) H 05/23/22 09:30 RBC 3.74 10^6/uL (4.1-5.3) L 05/23/22 09:30 Hgb 11.6 g/dL (11.5-15.3) 05/23/22 09:30 Hct 36.7 % (37.0-47.0) L 05/23/22 09:30 MCV 98.1 fl (81-99) 05/23/22 09:30 MCH 31.0 pg (28.0-34.0) 05/23/22 09:30 MCHC 31.6 g/dL (30.0-36.0) 05/23/22 09:30 RDW 14.6 % (12.1-15.1) 05/23/22 09:30 Plt Count 191 10^3/cmm (130-400) 05/23/22 09:30 MPV 10.7 fL (7.4-10.4) H 05/23/22 09:30 Neut % (Auto) 89.0 % 05/23/22 09:30 Lymph % (Auto) 4.2 % 05/23/22 09:30 Gage % (Auto) 5.5 % 05/23/22 09:30 Eos % (Auto) 0.3 % 05/23/22 09:30 Baso % (Auto) 0.6 % 05/23/22 09:30 Neut # (Auto) 9.67 10^3/uL (1.8-7.7) H 05/23/22 09:30 Lymph # (Auto) 0.5 10^3/uL (0.8-4.8) L 05/23/22 09:30 Gage # (Auto) 0.6 10^3/uL (0.2-0.9) 05/23/22 09:30 Eos # (Auto) 0.0 10^3/uL (0.0-0.8) 05/23/22 09:30 Baso # (Auto) 0.1 10^3/uL (0.0-0.1) 05/23/22 09:30 Nucleated RBC % (auto) 0 % 05/23/22 09:30 Nucleated RBCs # 0.0 /100WBC 05/23/22 09:30 Sodium 138 mmol/L (136-145) 05/23/22 09:30 Potassium 4.7 mmol/L (3.5-5.1) 05/23/22 09:30 Chloride 101 mmol/L (98-107) 05/23/22 09:30 Carbon Dioxide 23 mmol/L (22-29) 05/23/22 09:30 Anion Gap 18.7 (5-19) 05/23/22 09:30 BUN 19 mg/dL (8-23) 05/23/22 09:30 Creatinine 1.1 mg/dL (0.5-0.9) H 05/23/22 09:30 GFR Calculation Not Reportable 05/23/22 09:30 Glucose 112 mg/dL (65-115) 05/23/22 09:30 Calculated Osmolality 289 mOsm/kg (285-295) 05/23/22 09:30 Lactic Acid 1.8 mmol/L (0.5-2.2) 05/23/22 09:30 Calcium 9.5 mg/dL (8.5-10.5) 05/23/22 09:30 Magnesium 2.3 mg/dL (1.7-2.3) 05/23/22 09:30 Total Bilirubin 1.2 mg/dL (0.15-1.2) 05/23/22 09:30 AST 37 U/L (0-32) H 05/23/22 09:30 ALT 28 U/L (0-33) 05/23/22 09:30 Alkaline Phosphatase 181 U/L (35-105) H 05/23/22 09:30 Troponin T Baseline 16 ng/L (0-10) H 05/23/22 09:30 NT-Pro-B Natriuret Pep 70669 pg/mL (0-125) H 05/23/22 09:30 Total Protein 7.0 g/dL (6.6-8.7) 05/23/22 09:30 Albumin 4.5 g/dL (3.5-5.2) 05/23/22 09:30 Globulin 2.5 g/dL (1.3-4.6) 05/23/22 09:30 Urine Color Yellow (Yellow) 05/23/22 11:30 Urine Appearance Clear (CLEAR) 05/23/22 11:30 Urine pH 6 (5-7) 05/23/22 11:30 Ur Specific Stover 1.015 (1.005-1.030) 05/23/22 11:30 Urine Protein Neg (Negative) 05/23/22 11:30 Urine Glucose (UA) Norm (Normal) 05/23/22 11:30 Urine Ketones 1+ (Negative) H 05/23/22 11:30 Urine Blood Neg (Negative) 05/23/22 11:30 Urine Nitrate Negative (Negative) 05/23/22 11:30 Urine Bilirubin Neg (Negative) 05/23/22 11:30 Urine Urobilinogen Norm mg/dL (Negative) 05/23/22 11:30 Ur Leukocyte Esterase Negative (Negative) 05/23/22 11:30 Influenza Type A Ag negative (Negative) 05/23/22 08:28 Influenza Type B Ag negative (Negative) 05/23/22 08:28 SARS-CoV-2 Ag (Rapid) negative (Negative) 05/23/22 08:28 Critical Care Time Critical Care Time: Critical Care Time: Yes Total Critical Care Time: 40 Attestation: The high probability of a clinically significant, sudden or life threatening de terioration of the patient's cardiovascular system(s) required my full and direct attention, intervention and personal management. The critical care time is as shown. This time is in addition to time spent performing any reported procedures but includes the following: [x] Data and vital sign review and interpretation [x] Patient assessment, examination and intervention [x] Documentation [x] Medication orders and management Discharge Plan Discharge Patient Disposition: Admitted As Inpatient Clinical Impression: Atrial fibrillation with RVR, Community acquired pneumonia, Acute exacerbation of chronic obstructive airways disease, Congestive heart failure Condition: Stable Sign Out Sign Out Data: Patient Sign Out occurred on 05/23/22 at 09:01. Patient's care was discussed, and care was transferred from to Joe Montgomery DO. Coding Level of Care Code ED Director Of Kids for Chg Fwd Exam Comprehensive
--- NOTE | 2022-05-23 08:18 | ECG_ITS ---
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 Measurements Intervals [place] Rate: 123 P: 0 OR: 0 QRS: 113 QRSD: 97 T: 14 QT: 321 QTc: 461 Interpretive Statements ATRIAL FIBRILLATION WITH RAPID VENTRICULAR RESPONSE WITH ABERRANT CONDUCTION OR VENTRICULAR PREMATURE COMPLEXES POSSIBLE RIGHT VENTRICULAR HYPERTROPHY [SOME/ALL OF: PROMINENT R IN V1, LATE TRANSITION, RAD, TONG, SSS] Compared to ECG 04/11/2022 13:28:38 Ventricular premature complex(es) now present Aberrant conduction of supraventricular beat(s) now present T-wave abnormality no longer present Electronically Signed On 05-23-2022 10:54:05 [employer] by Ada Goodman M.D. [id number]
[2022-05-23] MEDS: metoclopramide 5 mg/mL SDV 2 mL 10 MG IVP (08:22)
[2022-05-23] MEDS: ipratropium-albuterol 3 mL Neb 6 ML INHALATION (09:06)
[2022-05-23] MEDS: dilTIAZem 5 mg/mL SDV 5 mL 10 MG IVP (09:19)
[2022-05-23 09:22] LABS: Influenza A by IFA negative (Negative); Influenza B by IFA negative (Negative); SARS Covid-2 Antigen negative (Negative)
[2022-05-23] MEDS: sotalol 80 mg Tablet 40 MG PO ×3 (09:25→19:42)
[2022-05-23] MEDS: dilTIAZem 100 MG in sodium chloride 0.9% (add-van) 100 ML IV (09:26)
[2022-05-23 09:44] LABS: Basophils # 0.1 10^3/uL (0.0-0.1); Basophils % 0.6 %; Eosinophils % 0.3 %; Hematocrit 36.7 % (37.0-47.0); Hemoglobin 11.6 g/dL (11.5-15.3); Lymphocytes # 0.5 10^3/uL (0.8-4.8); Lymphocytes % 4.2 %; Mean Corpuscular HGB Conc 31.6 g/dL (30.0-36.0); Mean Corpuscular Volume 98.1 fl (81-99); Mean Platelet Volume 10.7 fL (7.4-10.4); Monocytes # 0.6 10^3/uL (0.2-0.9); Monocytes % 5.5 %; Neutrophils # 9.67 10^3/uL (1.8-7.7); Nucleated Red Blood Cells % 0 %; Platelet Count 191 10^3/cmm (130-400); Red Blood Count 3.74 10^6/uL (4.1-5.3); Red Cell Distribution Width 14.6 % (12.1-15.1); White Blood Count 10.9 10^3/uL (4.0-10.0)
[2022-05-23] MEDS: levofloxacin-dextrose 5 % 750 MG/150 ML PREMIX 100 MG IV (10:13)
[2022-05-23 10:16] LABS: Troponin(5th) Baseline 16 ng/L (0-10)
[2022-05-23 10:25] LABS: Alanine Aminotransferase 28 U/L (0-33); Albumin Level 4.5 g/dL (3.5-5.2); Alkaline Phosphatase 181 U/L (35-105); Anion Gap 18.7 (5-19); Aspartate Amino Transferase 37 U/L (0-32); Blood Urea Nitrogen 19 mg/dL (8-23); Calcium 9.5 mg/dL (8.5-10.5); Carbon Dioxide 23 mmol/L (22-29); Chloride 101 mmol/L (98-107); Globulin 2.5 g/dL (1.3-4.6); Glucose 112 mg/dL (65-115); NT Pro B Type Natriuretic Pept 12933 pg/mL (0-125); Osmolality Calculated 289 mOsm/kg (285-295); Potassium 4.7 mmol/L (3.5-5.1); Sodium 138 mmol/L (136-145); Total Bilirubin 1.2 mg/dL (0.15-1.2)
--- NOTE | 2022-05-23 10:55 | P.HP_ITS ---
Providers/Chief Complaint Primary Care Provider: Ashley Varela NP Chief Complaint: SOB; CHEST PAIN History of Present Illness Aimee Sorensen is a 71 year old female with past medical history of CAD status post CABG in 2000, smoking, COPD, hypertension, recent atrial fibrillation presented to the hospital for shortness of breath and chest pain. Initially said that the chest pain started about 3 days ago and for the last couple of days it has been worsening. Patient took 2 nitro after which the pain resolved. When seen in ED she was not having any more chest pain. Shortness of breath started yesterday. Also had a dry cough along with some nasal drainage and congestion. Patient denied having a fever, vomiting, dysuria, hematuria, palpitations. Patient recently saw cardiology on May 11 and thought was a hospital follow-up from discharge in February. In February she was hospitalized for COPD exacerbation and had volume overload. Patient is on diuretics at home including sotalol and Eliquis. Her most recent echo in October 2021 showed normal EF 50 to 55% and diastolic dysfunction indeterminate with moderate mitral regurgitation. For COPD she has had PFTs done which showed moderate airflow obstruction. She follows up with Dr. Luke as an outpatient. ED course: On arrival to ER blood pressure 154/87, saturating 93% on 2 L nasal cannula, tachycardic, pulse 131, temperature 100.6. Chest x-ray shows enlarged heart and trace atelectasis or scarring noted in left lung base. Labs significant for WBC 10.9, creatinine 1.1, BNP 12,933 patient says she missed her dose of sotalol at home therefore she was given 40 mg x 1, Cardizem 10 IV push x1, Lasix 40 IV x1, Levaquin 750x1 and placed on a Cardizem drip. Transfer orders to CSU written. Medications/Allergies Home Medications Medication Instructions Recorded Confirmed Last Taken Type acetaminophen 650 mg 650 mg PO Q12H 08/06/20 05/23/22 01/21/21 History tablet,extended release aspirin 81 mg tablet,delayed 81 mg PO DAILY 08/06/20 05/23/22 05/22/22 History release atorvastatin 80 mg tablet 80 mg PO QPM 08/06/20 05/23/22 05/22/22 History cholecalciferol (vit D3) 5,500 1 tab PO Q2D 08/06/20 05/23/22 05/22/22 History unit-vit K2 200 mcg tablet donepezil 10 mg tablet 10 mg PO DAILY 08/06/20 05/23/22 05/22/22 History meloxicam 15 mg tablet 15 mg PO DAILY 08/06/20 05/23/22 05/22/22 History montelukast 10 mg tablet 10 mg PO QPM 08/06/20 05/23/22 05/22/22 History multivitamin 1 tab PO DAILY 08/06/20 05/23/22 05/22/22 History pantoprazole 40 mg tablet,delayed 40 mg PO BID 08/06/20 05/23/22 05/22/22 History release sotalol 80 mg tablet 40 mg PO BID 08/06/20 05/23/22 05/22/22 History tizanidine 4 mg capsule 4 mg PO Q8H PRN Muscle Pain 08/06/20 05/23/22 01/21/21 History trazodone 150 mg tablet 150 mg PO BEDTIME 08/06/20 05/23/22 05/22/22 History vit B complex 100 combo no.2 100 1 tab PO DAILY 08/06/20 05/23/22 05/22/22 H istory mg tablet,extended release (B-100 Complex ER) ferrous sulfate 325 mg (65 mg 325 mg PO BID 11/17/21 05/23/22 05/22/22 History iron) tablet dicyclomine 20 mg tablet 20 mg PO QID PRN PAIN 11/18/21 05/23/22 04/11/22 History pregabalin 100 mg capsule 100 mg PO BID 11/18/21 05/23/22 05/22/22 History albuterol sulfate 90 mcg/actuation 2 puff inhalation Q6H PRN 11/20/21 05/23/22 Unknown Rx aerosol inhaler shortness of breath or wheezing #8.5 grams apixaban 5 mg tablet (Eliquis) 5 mg PO BID #180 tabs 11/28/21 05/23/22 05/22/22 Rx fluticasone fur. 100 mcg-umeclid 1 inh inhalation DAILY #60 ea 03/17/22 05/23/22 05/22/22 Rx 62.5 mcg-vilant 25 mcg inhalat.powder (Trelegy Ellipta) isosorbide mononitrate 30 mg 30 mg PO DAILY #30 tabs 04/11/22 05/23/22 05/22/22 Rx tablet,extended release 24 hr nitroglycerin 0.4 mg sublingual 0.4 mg sublingual Q5M PRN chest 04/11/22 05/23/22 Unknown Rx tablet pain #30 tabs ipratropium 0.5 mg-albuterol 3 mg 3 ml inhalation Q6H PRN shortness 04/15/22 05/23/22 Unknown Rx (2.5 mg base)/3 mL nebulization of breath or wheezing #180 mL soln olmesartan 40 mg tablet 40 mg PO DAILY 05/11/22 05/23/22 05/22/22 History furosemide 40 mg tablet 40 mg PO BID 05/12/22 05/23/22 05/22/22 History potassium chloride 10 mEq 20 meq PO DAILY 05/12/22 05/23/22 05/22/22 History tablet,extended release Allergies Allergy/AdvReac Type Severity Reaction Status Date / Time adhesive tape Allergy Severe ALGY-Bliste Verified 05/11/22 08:41 r codeine Allergy Unknown Verified 05/11/22 08:41 hydrocodone [From Vicodin] Allergy Unknown Verified 05/11/22 08:41 PFSH Acute PFSH: Medical History (Updated 05/23/22 @ 14:16 by Blanca Escalante MD) Acute exacerbation of chronic obstructive pulmonary disease Allergic rhinitis Atrial fibrillation Atrial fibrillation with RVR Bilateral wheezing CAD (coronary artery disease) Chronic low back pain GERD (gastroesophageal reflux disease) HTN (hypertension) Hyperlipidemia Hypertension IBS (irritable bowel syndrome) Insomnia Memory loss Surgical History History of coronary artery stent placement Hx of coronary artery bypass graft S/P triple vessel bypass Family History Other CAD (coronary artery disease) Dementia Family history of premature coronary artery disease Hypertension Social History Smoking and tobacco status: current every day smoker cigarettes Packs smoked per day: 1 Years cigarettes smoked: 55 [ Other cigarette details: 4 cigarettes per day currently] Female Reproductive History: Date of last menstrual period: 10/29/05 Vitals/I&O/Wt Last Vital Signs Temp 100.6 F H 05/23/22 08:07 Pulse 121 H 05/23/22 10:27 Resp 18 05/23/22 10:27 BP 154/87 05/23/22 10:27 Pulse Ox 93 05/23/22 10:27 O2 Del Method 05/23/22 09:07 O2 Flow Rate 2 05/23/22 09:07 05/22/22 05/23/22 05/23/22 22:59 06:59 14:59 Intake Total 5.583 / 5.583 Balance 5.583 / 5.583 Physical Exam Narrative: General: Alert oriented x3, patient seen laying in bed. On 2 L nasal cannula. HEENT: Normocephalic, atraumatic, EOMI, breathing normally, no acute distress. Cardio: Irregularly irregular, tachycardic. Normal S1-S2, Respiratory: Wheezes appreciated bilaterally, mild rhonchi at bases GI: Abdomen soft, nontender, nondistended, bowel sounds + Extremities: 2+ edema bilateral lower extremities. Data 05/23/22 09:30 05/23/22 09:30 A&P Assessment and plan (1) Atrial fibrillation with RVR: (2) Community acquired pneumonia: (3) Lower extremity edema: (4) Congestive heart failure: (5) Smoker: (6) Exertional dyspnea: (7) Hyperlipidemia: (8) CAD (coronary artery disease): (9) HTN (hypertension): (10) COPD (chronic obstructive pulmonary disease): Plan #Atrial fibrillation with RVR #Moderate mitral regurgitation #Possible pneumonia? #History of coronary artery disease status post CABG 2000 #Hypertension #Hyperlipidemia #COPD #On chronic anticoagulation #GERD #Chronic low back pain #Nicotine dependence, current everyday smoker ? Continue home sotalol. May uptitrate. Monitor QTC ? Continue Cardizem drip ? Continue ceftriaxone and azithromycin for possible pneumonia? ? Check procalcitonin ? Check blood cultures ? Strep and Legionella antigens ? Check MRSA nares ? Check COVID, influenza ? BNP 11,000. There is mild pulmonary vascular congestion on x-ray. Continue Lasix 40 IV twice daily ? Daily weights ? [place] for accurate output ? Continue aspirin atorvastatin, donepezil, DuoNeb, Imdur, Eliquis -Consider cardiology consult. - Sotalol 80 am, 40 pm, cardizem drip - EKG q12H, check QTC. - Monitor urine output Full code DVT prophylaxis: Patient on Eliquis. Attestations Medical Necessity Statement*: Anticipate greater than 2 midnight stay for management of atrial fibrillation with RVR, possible pneumonia, fluid overload. Coding Level of Care Code Acute Adult Psychiatrist for [facility] Fwd Diagnoses Atrial fibrillation with RVR I48.91 Community acquired pneumonia J18.9 Lower extremity edema R60.0 Congestive heart failure I50.9 Smoker F17.200 Exertional dyspnea R06.00 Hyperlipidemia E78.5 CAD (coronary artery disease) I25.10 HTN (hypertension) I10 COPD (chronic obstructive pulmonary disease) J44.9
[2022-05-23] MEDS: FUROsemide 10 mg/mL SDV 4mL 40 MG IVP ×2 (11:01→18:21)
--- NOTE | 2022-05-23 11:20 | ECG_ITS ---
[facility] Test Date: 2022-05-23 Pat Name: Aimee Sorensen Department: Room: Gender: Female Dish Up Person: : 1950 Requested By: Fady Arias Order Number: [id number] Mark MD: Ada Goodman M.D. Measurements Intervals [place] Rate: 100 P: 0 PA: 0 QRS: 107 QRSD: 103 T: 49 QT: 350 QTc: 453 Interpretive Statements ATRIAL FIBRILLATION WITH RAPID VENTRICULAR RESPONSE WITH ABERRANT CONDUCTION OR VENTRICULAR PREMATURE COMPLEXES RIGHT AXIS DEVIATION [QRS AXIS > 100] Compared to ECG 05/23/2022 08:18:29 Right-axis deviation now present Atrial abnormality no longer present Electronically Signed On 05-24-2022 8:30:22 SPUDDER by Ada Goodman M.D. [id number]
[2022-05-23 11:44] LABS: Add Urine Microscopic? NO; Charge for UA Resulting for Rev
[2022-05-23 11:49] LABS: Bilirubin Urine Neg (Negative); Blood Urine Neg (Negative); Glucose Urine UA Norm (Normal); Ketones Urine 1+ (Negative); Leukocyte Esterase Urine Negative (Negative); Nitrate Urine Negative (Negative); Protein Urine Neg (Negative); Specific Gravity, Urine 1.015 (1.005-1.030); Urine Appearance Clear (CLEAR); Urine Color Yellow (Yellow); Urobilinogen Urine Norm (Negative); pH Urine 6 (5-7)
[2022-05-23 12:01] LABS: Magnesium 2.3 mg/dL (1.7-2.3)
[2022-05-23 12:02] LABS: Lactic Sepsis W/Reflex 1.8 mmol/L (0.5-2.2)
[2022-05-23 12:04] LABS: Troponin 5 2HR 16.96 ng/L (0-10)
[2022-05-23 12:08] LABS: Procalcitonin 0.07 ng/mL (0-0.5)
[2022-05-23 12:16] LABS: Troponin 5 2HR Delta 0.96 ABS# (0-10)
[2022-05-23] MEDS: pantoprazole 40 mg SDV IVP (13:07)
--- NOTE | 2022-05-23 14:10 | ECG_ITS ---
[facility] Test Date: 2022-05-23 Pat Name: Aimee Sorensen Department: Room: Gender: Female Business Initiatives Manager: : 1950 Requested By: Fady Arias Order Number: [id number] Flores MD: Ada Goodman M.D. Measurements Intervals [place] Rate: 117 P: 0 [place]: 0 QRS: 110 QRSD: 114 T: 50 QT: 323 QTc: 452 Interpretive Statements ATRIAL FIBRILLATION WITH RAPID VENTRICULAR RESPONSE WITH ABERRANT CONDUCTION OR VENTRICULAR PREMATURE COMPLEXES POSSIBLE RIGHT VENTRICULAR HYPERTROPHY [SOME/ALL OF: PROMINENT R IN V1, LATE TRANSITION, RAD, TONG, SSS] Compared to ECG 05/23/2022 11:20:27 Right-axis deviation no longer present Electronically Signed On 05-24-2022 8:28:41 MECHANICAL PROJECT ENGINEER by Ada Goodman M.D. [email or web address].[facility] Mediamerit health biloxiAskablogrkettering health greene memorial.[employer]/store/OM/[id number]
[2022-05-23] MEDS: ketorolac 30 mg/mL INJ 15 MG IVP (14:59)
--- NOTE | 2022-05-23 15:28 | PC.NURSE ---
Pt pulled her IV out, bleeding controlled.
[2022-05-23 15:29] LABS: Troponin 5 6HR 17.05 ng/L (0-10)
[2022-05-23 15:31] LABS: ABG PCO2 46.2 mmHg (35-45); ABG PH Result 7.35 (7.35-7.45); Alveolar-Arterial Oxygen Gradi 12.8 mmHg (5-10); Arterial Blood Gas Hematocrit 36.9 % (37-47); Base Excess ABG -0.5 mmol/L (-2.0-2.0); Blood Gas Allen Test Pos; Blood Gas Operator Identificat CAK; Blood Gas Sample Site Radial, right; Blood Gas Sample Type Arterial; Carboxyhemoglobin 1.5 %THgb (0.4-20.1); HCO3 ABG 25.5 mmol/L (22-26); HGB O2 Sat 92.2 % (95-100); Ionized Calcium Level - ABG 1.2 mmol/L (1.1-1.4); Methemoglobin 1.1 % (0.4-1.5); Oxygen Device NC; Oxygen Saturation ABG 94.6; PO2 ABG 75.5 mmHg (80.0-100.0); Potassium Level - ABG 4.3 mmol/L (3.5-5.0); Total Hemoglobin 12.1 g/dL (12-16)
[2022-05-23 15:35] LABS: Troponin 5 6HR Delta 1.05 ng/L (0-12)
[2022-05-23] MEDS: cefTRIAXone 1,000 MG in sodium chloride 0.9% (plus) 50 ML 100 MG IV (16:04)
--- NOTE | 2022-05-23 17:08 | ECG_ITS ---
[facility] Test Date: 2022-05-23 Pat Name: Aimee Sorensen Department: Room: 106 Gender: Female Contact Lens Lathe Operator: : 1950 Requested By: Blanca Escalante Order Number: [id number] Mark MD: Ada Goodman M.D. Measurements Intervals [place] Rate: 99 P: 0 [place]: 0 QRS: 98 QRSD: 106 T: 54 QT: 383 QTc: 491 Interpretive Statements ATRIAL FIBRILLATION WITH ABERRANT CONDUCTION OR VENTRICULAR PREMATURE COMPLEXES BORDERLINE RIGHT AXIS DEVIATION [QRS AXIS > 90] Compared to ECG 05/23/2022 14:10:29 No significant changes Electronically Signed On 05-24-2022 8:26:43 EVENT MGR by Ada Goodman M.D. [email or web address]/store/[id number]
[2022-05-23] MEDS: apixaban 5 mg Tablet PO (18:20)
[2022-05-23] MEDS: atorvastatin 40 mg Tablet 80 MG PO (18:20)
[2022-05-23] MEDS: pantoprazole DR 40 mg Tablet PO (18:20)
[2022-05-23] MEDS: azithromycin 500 MG in sodium chloride 0.9% 250 ML 250 MG IV (18:20)
[2022-05-23] MEDS: ferrous sulfate EC 325 mg Tablet PO (18:20)
[2022-05-23] MEDS: pregabalin 100 mg Capsule PO (18:33)
[2022-05-23] MEDS: ALPRAZolam 0.5 mg Tablet 0.25 MG PO (19:42)
[2022-05-23] MEDS: trazodone 150 mg Tablet PO (19:42)
[2022-05-23] MEDS: dilTIAZem 100 MG in sodium chloride 0.9% (add-van) 100 ML 7.5 MG IV (19:44)
[2022-05-23 23:21] LABS: Add Urine Microscopic? NO; Charge for UA Resulting for Rev
[2022-05-23 23:35] LABS: Bilirubin Urine Neg (Negative); Blood Urine Neg (Negative); Glucose Urine UA Norm (Normal); Ketones Urine Negative (Negative); Leukocyte Esterase Urine Negative (Negative); Nitrate Urine Negative (Negative); Protein Urine Neg (Negative); Urine Appearance Clear (CLEAR); Urine Color Yellow (Yellow); Urobilinogen Urine Norm (Negative); pH Urine 5 (5-7)
[2022-05-24] VITALS (15 sets, daily range): BP systolic 110–167; BP diastolic 78–112; PULSE 89–124; RESP 16–26; TEMP 36.3–37.6; O2SAT 90–98
[2022-05-24] MEDS: ipratropium-albuterol 3 mL Neb INHALATION ×6 (05:02→20:17)
--- NOTE | 2022-05-24 05:08 | ECG_ITS ---
[facility] Test Date: 2022-05-24 Pat Name: Aimee Sorensen Department: Room: 106 Gender: Female Pecan Picker: : 1950 Requested By: Blanca Escalante Order Number: [id number] Mark MD: Ada Goodman M.D. Measurements Intervals [place] Rate: 114 P: 0 [place]: 0 QRS: 104 QRSD: 99 T: 9 QT: 346 QTc: 477 Interpretive Statements ATRIAL FIBRILLATION WITH RAPID VENTRICULAR RESPONSE POSSIBLE RIGHT VENTRICULAR HYPERTROPHY MODERATE ST DEPRESSION [0.05+ mV ST DEPRESSION] Compared to ECG 05/23/2022 17:59:44 ST (T wave) deviation now present Ventricular premature complex(es) no longer present Aberrant conduction of supraventricular beat(s) no longer present Electronically Signed On 05-24-2022 8:23:25 FOUNTAIN ROLLER ASSEMBLER by Ada Goodman M.D. [email or web address] [email or web address] retargetingocean springs hospitalMVNO Dynamics Limitedthe metrohealth [email or web address]/store/[id number]
[2022-05-24] MEDS: sotalol 80 mg Tablet PO (05:14)
[2022-05-24] MEDS: FUROsemide 10 mg/mL SDV 4mL 40 MG IVP (05:14)
[2022-05-24 06:01] LABS: Basophils % 0.2 %; Hematocrit 35.6 % (37.0-47.0); Hemoglobin 11.2 g/dL (11.5-15.3); Lymphocytes # 0.4 10^3/uL (0.8-4.8); Lymphocytes % 4.3 %; Mean Corpuscular HGB Conc 31.5 g/dL (30.0-36.0); Mean Corpuscular Hemoglobin 31.2 pg (28.0-34.0); Mean Corpuscular Volume 99.2 fl (81-99); Monocytes # 0.6 10^3/uL (0.2-0.9); Monocytes % 7.8 %; Neutrophils # 7.19 10^3/uL (1.8-7.7); Neutrophils % 87.3 %; Nucleated Red Blood Cells % 0 %; Platelet Count 157 10^3/cmm (130-400); Red Blood Count 3.59 10^6/uL (4.1-5.3); Red Cell Distribution Width 14.5 % (12.1-15.1); White Blood Count 8.2 10^3/uL (4.0-10.0)
[2022-05-24 06:27] LABS: Anion Gap 16.4 (5-19); Blood Urea Nitrogen 26 mg/dL (8-23); Calcium 9.4 mg/dL (8.5-10.5); Carbon Dioxide 30 mmol/L (22-29); Chloride 97 mmol/L (98-107); Glucose 125 mg/dL (65-115); Magnesium 2.2 mg/dL (1.7-2.3); Osmolality Calculated 294 mOsm/kg (285-295); Potassium 4.4 mmol/L (3.5-5.1); Sodium 139 mmol/L (136-145)
[2022-05-24] MEDS: pantoprazole DR 40 mg Tablet PO ×2 (08:33→17:01)
[2022-05-24] MEDS: aspirin 81 mg EC Tablet PO (08:33)
[2022-05-24] MEDS: donepezil 5 MG Tablet 10 MG PO (08:33)
[2022-05-24] MEDS: apixaban 5 mg Tablet PO ×2 (08:34→17:02)
[2022-05-24] MEDS: isosorbide mononitrate ER 30 mg Tablet PO (08:34)
[2022-05-24] MEDS: ferrous sulfate EC 325 mg Tablet PO ×2 (08:35→17:01)
[2022-05-24] MEDS: pregabalin 100 mg Capsule PO ×2 (09:58→17:00)
--- NOTE | 2022-05-24 10:08 | PM.PN ---
Subjective Subjective: Seen this morning. Patient is off the Cardizem drip. Switch to oral already. Heart rate much better controlled. She is on 5 L nasal cannula however reportedly feeling better after breathing treatment. Vitals/I&O/Wt Last Vital Signs Temp 98.5 F 05/24/22 07:36 Pulse 102 H 05/24/22 08:00 Resp 18 05/24/22 08:00 BP 124/86 05/24/22 07:36 Pulse Ox 5 L 05/24/22 08:00 O2 Del Method 05/24/22 08:00 O2 Flow Rate 6 05/24/22 07:36 FiO2 30 05/23/22 14:56 05/23/22 05/24/22 05/24/22 22:59 06:59 14:59 Intake Total 660.542 / 666.125 Output Total 130 / 130 2049 / 2180 Balance 530.542 / 536.125 -2050 / -1513.875 Weight last 48 hrs Weight 78.925 kg Physical Exam Narrative: General: Alert oriented x3, patient seen laying in bed. On 2 L nasal cannula. HEENT: Normocephalic, atraumatic, EOMI, breathing normally, no acute distress. Cardio: Irregularly irregular, tachycardic. Normal S1-S2, Respiratory: Mild wheezes appreciated bilaterally but mainly clear to auscultation much improved compared to yesterday. GI: Abdomen soft, nontender, nondistended, bowel sounds + Extremities: 2+ edema bilateral lower extremities. Data 05/24/22 05:25 05/24/22 05:25 Micro: Microbiology 05/23/22 23:10 Legionella Urinary Antigen - Final Urine,Voided Bacterial Antigens - Final 05/23/22 12:40 Blood Culture - Preliminary Blood SPECIMEN COLLECTED 05/23/22 12:30 Blood Culture - Preliminary Blood SPECIMEN COLLECTED A&P Assessment and plan (1) Atrial fibrillation with RVR: (2) Community acquired pneumonia: (3) Lower extremity edema: (4) Congestive heart failure: (5) Smoker: (6) Exertional dyspnea: (7) Hyperlipidemia: (8) CAD (coronary artery disease): (9) HTN (hypertension): (10) COPD (chronic obstructive pulmonary disease): Plan #Atrial fibrillation with RVR #Rate related heart failure #Moderate mitral regurgitation #Pneumonia ruled out. #History of coronary artery disease status post CABG 2000 #Hypertension #Hyperlipidemia #COPD #On chronic anticoagulation #GERD #Chronic low back pain #Nicotine dependence, current everyday smoker ? Continue home sotalol. May uptitrate. Monitor QTC ? Continue Cardizem drip ? Continue ceftriaxone and azithromycin for empiric coverage. ? Procalcitonin negative. ? Check blood cultures ? Strep and Legionella antigens. Negative. ? Check MRSA nares ? Check COVID, influenza?negative ? BNP 11,000. There is mild pulmonary vascular congestion on x-ray. Continue Lasix 40 IV twice daily ? Daily weights ? Alcala for accurate output ? Continue aspirin atorvastatin, donepezil, DuoNeb, Imdur, Eliquis -Continue on sotalol 60 mg in the morning and 40 in the evening. Cardizem 30 every 6 hours. QTc 477. Will reduce sotalol to 60 in AM instead of 80. ? Urine output 2800 and last 24 hours. Continue Lasix 60 IV twice daily. - Wean down oxygen as able. Full code DVT prophylaxis: Patient on Eliquis. Attestations Medical Necessity Statement*: Anticipate greater than 2 midnight stay for management of atrial fibrillation with RVR, possible pneumonia, fluid overload. Coding Level of Care Code Acute Construction Cost Estimator for [facility] Fw Diagnoses Atrial fibrillation with RVR I48.91 Community acquired pneumonia J18.9 Lower extremity edema R60.0 Congestive heart failure I50.9 Smoker F17.200 Exertional dyspnea R06.00 Hyperlipidemia E78.5 CAD (coronary artery disease) I25.10 HTN (hypertension) I10 COPD (chronic obstructive pulmonary disease) J44.9
[2022-05-24] MEDS: dilTIAZem 100 MG in sodium chloride 0.9% (add-van) 100 ML 7.5 MG IV (11:42)
[2022-05-24] MEDS: dilTIAZem 30 mg Tablet PO ×3 (11:42→22:10)
--- NOTE | 2022-05-24 14:39 | PC.NURSE ---
ardizem drip off telephone order to start pt on oral cardizem read back tel order of 60 mg cardizem PO q6hrs. turn drip off 2 hrs post oral initiation.
[2022-05-24] MEDS: FUROsemide 10 mg/mL SDV 10mL 60 MG IVP (15:09)
[2022-05-24] MEDS: cefTRIAXone 1,000 MG in sodium chloride 0.9% (plus) 50 ML 100 MG IV (15:14)
--- NOTE | 2022-05-24 15:33 | XRR_ITS ---
PROCEDURE INFORMATION: Exam: XR Chest Exam date and time: 05/24/2022 4:01 PM Age: 71 years old Clinical indication: Shortness of breath TECHNIQUE: Imaging protocol: Radiologic exam of the chest. Views: 1 view. COMPARISON: CR (CHEST, ) 05/23/2022 8:20 AM FINDINGS: Tubes, catheters and devices: Lower cervical spine fusion device. Lungs: The lung bases are suboptimally assessed due to technique however the upper lungs are clear of focal consolidation. A few calcified pulmonary granulomas are again noted. Pleural spaces: Unremarkable. No pleural effusion. No pneumothorax. Heart/Mediastinum: Cardiac silhouette and vascularity appears somewhat prominent similar to prior exam suggesting element of CHF/vascular congestion. Bones/joints: No acute osseous findings. Sternotomy wires and CABG clips. Other findings: Single view was submitted. XR/XR chest 1V portable [id number] IMPRESSION: 1. CHF/vascular congestion similar to prior exam. 2. No obvious acute consolidation. Suboptimal lung base assessment. Followup including lateral view may be obtained if clinically indicated.
--- NOTE | 2022-05-24 15:34 | ECG_ITS ---
[facility] Test Date: 2022-05-24 Pat Name: Aimee Sorensen Department: Room: 106 Gender: Female Custom Seamstress: : 1950 Requested By: Blanca Escalante Order Number: [id number] Mark MD: Ada Goodman M.D. Measurements Intervals [place] Rate: 116 P: 0 ID: 0 QRS: 107 QRSD: 107 T: -5 QT: 353 QTc: 491 Interpretive Statements ATRIAL FIBRILLATION WITH RAPID VENTRICULAR RESPONSE WITH ABERRANT CONDUCTION OR VENTRICULAR PREMATURE COMPLEXES RIGHT AXIS DEVIATION [QRS AXIS > 100] NONSPECIFIC ST & T-WAVE ABNORMALITY Compared to ECG 05/24/2022 04:44:46 Ventricular premature complex(es) now present Aberrant conduction of supraventricular beat(s) now present Right-axis deviation now present T-wave abnormality now present ST (T wave) deviation no longer present Electronically Signed On 05-25-2022 5:57:53 INVENTORY ADMINISTRATOR by Ada Goodman M.D. [email or web address] Networksjohn [facility]ir [facility].[employer]/store/OM/[id number]
[2022-05-24 16:19] LABS: Troponin(5th) Baseline 16 ng/L (0-10)
[2022-05-24] MEDS: LORazepam 0.5 mg Tablet 0.25 MG PO ×2 (16:58→23:33)
[2022-05-24] MEDS: atorvastatin 40 mg Tablet 80 MG PO (17:01)
[2022-05-24] MEDS: sotalol 80 mg Tablet 40 MG PO (17:03)
[2022-05-24] MEDS: azithromycin 500 MG in sodium chloride 0.9% 250 ML 250 MG IV (17:03)
--- NOTE | 2022-05-24 17:31 | ECG_ITS ---
[facility] Test Date: 2022-05-24 Pat Name: Aimee Sorensen Department: Room: 106 Gender: Female Preservationist: : 1950 Requested By: Blanca Escalante Order Number: [id number] Reading MD: Ada Goodman M.D. Measurements Intervals [place] Rate: 125 P: 0 [place]: 0 QRS: 107 QRSD: 100 T: 34 QT: 338 QTc: 489 Interpretive Statements ATRIAL FIBRILLATION WITH RAPID VENTRICULAR RESPONSE WITH ABERRANT CONDUCTION OR VENTRICULAR PREMATURE COMPLEXES RIGHT AXIS DEVIATION [QRS AXIS > 100] NONSPECIFIC ST & T-WAVE ABNORMALITY Compared to ECG 05/24/2022 15:53:16 No significant changes Electronically Signed On 05-25-2022 6:06:48 NURSE INFORMATICS EDUCATOR by Ada Goodman M.D. [email or web address] [facility].[employer]/store/[id number]
[2022-05-24 17:52] LABS: Troponin 5 2HR 17.48 ng/L (0-10)
[2022-05-24 17:59] LABS: Troponin 5 2HR Delta 1.48 ABS# (0-10)
--- NOTE | 2022-05-24 18:06 | USCV_ITS ---
Aimee Sorensen Age: 71 Gender: F : 1950 Exam Date: 05/24/2022 18:24 Ordering Phys: Blanca Escalante MD Technologist: Rita Lewis [place] [facility] [place]: SOB BP: 139 / 80 HR: 95 Rhythm: Other Technical Quality: Adequate MEASUREMENTS (Male / Female) Normal Values 2D ECHO LV Diastolic Diameter PLAX 3.9 cm 4.2 - 5.9 / 3.9 - 5.3 cm LV Systolic Diameter PLAX 3.7 cm LV Chamber Size 3.5 cm IVS Diastolic Thickness 1.4 cm 0.6 - 1.0 / 0.6 - 0.9 cm IVS Systolic Thickness 1.4 cm LVPW Diastolic Thickness 1.3 cm 0.6 - 1.0 / 0.6 - 0.9 cm LVPW Systolic Thickness 1.3 cm RV Chamber Size 2.9 cm LVOT Diameter 2.1 cm LV Ejection Fraction 2D Teich 12.5 % LV Ejection Fraction MOD 2C 38.5 % LV Ejection Fraction 2C AL 37.2 % LA Diameter 5.5 cm LA Width 4.0 cm LA Height 6.4 cm RA Width 4.3 cm RA Height 5.7 cm Aorta at Sinotubular Diameter 2.8 cm IVC Diameter 2.0 cm M-MODE Aortic Annulus Diameter 3.0 cm LA Ao Ratio MM 2.1 MV E Point Septal Separation 0.8 cm DOPPLER AV Peak Velocity 169.0 cm/s LVOT Peak Velocity 75.0 cm/s AV Area Cont Eq vti 1.7 cm squared AV Area Cont Eq pk 1.5 cm squared MV Area PHT 4.4 cm squared MV E' Velocity 80.5 cm/s Mitral E to MV E' Ratio 10.6 Mitral E to LV E' Lateral Ratio 10.0 Mitral E to LV E' Septal Ratio 11.3 TR Peak Velocity 291.1 cm/s TR Peak Gradient 33.9 mmHg TR Mean Velocity 216.6 cm/s TR Mean Gradient 21.4 mmHg TR Velocity Time Integral 80.6 cm TV Peak E Velocity 85.0 cm/s Right Atrial Pressure 8.0 mmHg Pulmonary Artery Systolic Pressu 41.9 mmHg RV Acceleration Time 0.1 s RV Ejection Time 0.3 s RV AcT/ET 0.3 FINDINGS Left Ventricle Normal left ventricular cavity size. Mildly decreased left ventricular systolic function. Left ventricular ejection fraction is estimated at 40-45 %. Mild global hypokinesis. Abnormal septal motion. Rhythm precludes evaluation of diastolic function. Right Ventricle Dilated right ventricle. Moderately decreased right ventricular systolic function. Right ventricular systolic pressure 39 mmHg. Right Atrium Mildly increased right atrial size. Right atrial pressure estimated at 8 mmHg. Left Atrium Moderately increased left atrial size. Mitral Valve Mildly thickened mitral valve. No mitral valve stenosis. Moderate mitral valve regurgitation. Aortic Valve Mildly thickened trileaflet aortic valve. No aortic valve stenosis. No aortic valve regurgitation. Tricuspid Valve Structurally normal tricuspid valve. No tricuspid valve stenosis. Mild tricuspid valve regurgitation. Pulmonic Valve Structurally normal pulmonic valve. No pulmonary valve stenosis. Trace pulmonary valve regurgitation. Pericardium No pericardial effusion. Aorta Normal-sized aortic root. IVC Dilated IVC dimension with >50% respiratory change of the inferior vena cava. CONCLUSIONS 1. Normal left ventricular cavity size. Mildly decreased left ventricular systolic function. Left ventricular ejection fraction is estimated at 40-45%. Mild global hypokinesis. Abnormal septal motion. 2. Dilated right ventricle. Moderately decreased right ventricular systolic function. 3. Mild pulmonary hypertension with pulmonary pressure estimated at 39 mmHg. 4. Moderate mitral valve regurgitation. 5. Mild tricuspid valve regurgitation. 6. When compared to study dated 11/05/2021, left ventricular and right ventricular systolic function has decreased. Ada Goodman MD (Electronically Signed) Final Date: 25 May 2022 12:33 S
--- NOTE | 2022-05-24 20:28 | PC.NURSE ---
Spoke to Dr Escalante while she was on the floor. Discussed medications for this patient. Doctor requested to hold trazodone and ativan this night. Patient must remain on bipap. Will inform doctor if she refuses or is unable to tolerate. Will continue to monitor.
--- NOTE | 2022-05-24 21:34 | ECG_ITS ---
[facility] Test Date: 2022-05-25 Pat Name: Aimee Sorensen Department: Room: 106 Gender: Female Hearing Therapy Teacher: : 1950 Requested By: Blanca Escalante Order Number: [id number] Reading MD: Ada Goodman M.D. Measurements Intervals [place] Rate: 101 P: 0 [place]: 0 QRS: 101 QRSD: 103 T: 48 QT: 360 QTc: 469 Interpretive Statements ATRIAL FIBRILLATION WITH RAPID VENTRICULAR RESPONSE WITH ABERRANT CONDUCTION OR VENTRICULAR PREMATURE COMPLEXES RIGHT AXIS DEVIATION [QRS AXIS > 100] NONSPECIFIC ST & T-WAVE ABNORMALITY Compared to ECG 05/24/2022 17:31:19 No significant changes Electronically Signed On 05-25-2022 6:03:59 TRAVELING ACCOUNTANT by Ada Goodman M.D. [email or web address] hospital [email or web address] huntington park.BIlprospekt/store/[id number]
[2022-05-24 23:06] LABS: Troponin 5 6HR 15.98 ng/L (0-10)
[2022-05-24 23:12] LABS: Troponin 5 6HR Delta -0.02 ng/L (0-12)
[2022-05-25] VITALS (42 sets, daily range): BP systolic 95–154; BP diastolic 71–104; PULSE 100–133; RESP 8–28; TEMP 36.6–37.2; O2SAT 87–99
[2022-05-25] MEDS: ipratropium-albuterol 3 mL Neb INHALATION ×6 (00:54→20:00)
[2022-05-25] MEDS: FUROsemide 10 mg/mL SDV 10mL 60 MG IVP (01:26)
[2022-05-25 04:03] LABS: Basophils % 0.2 %; Hematocrit 34.6 % (37.0-47.0); Hemoglobin 10.7 g/dL (11.5-15.3); Lymphocytes # 0.3 10^3/uL (0.8-4.8); Lymphocytes % 5.9 %; Mean Corpuscular HGB Conc 30.9 g/dL (30.0-36.0); Mean Corpuscular Hemoglobin 30.3 pg (28.0-34.0); Mean Platelet Volume 10.8 fL (7.4-10.4); Monocytes # 0.3 10^3/uL (0.2-0.9); Monocytes % 4.9 %; Neutrophils # 5.11 10^3/uL (1.8-7.7); Neutrophils % 88.7 %; Nucleated Red Blood Cells % 0 %; Platelet Count 157 10^3/cmm (130-400); Red Blood Count 3.53 10^6/uL (4.1-5.3); Red Cell Distribution Width 14.4 % (12.1-15.1); White Blood Count 5.8 10^3/uL (4.0-10.0)
[2022-05-25] MEDS: sotalol 80 mg Tablet 60 MG PO (04:09)
[2022-05-25] MEDS: dilTIAZem 30 mg Tablet PO ×3 (04:09→18:20)
--- NOTE | 2022-05-25 04:10 | PM.PN ---
Subjective Subjective: Overnight events noted, she has been given Lasix for CHF exacerbation related to A. fib RVR and underlying mitral regurgitation, family has been updated normal currently on BiPAP She is full code Patient is very anxious today, she took off her oxygen and became hypoxic and then had a panic attack we had to put her on BiPAP, she is compliant, complaining of shortness of breath, I requested chest x-ray which did not show any signs of vascular congestion worsening Chronic COPD changes Vitals/I&O/Wt Last Vital Signs Temp 99.7 F H 05/24/22 20:49 Pulse 106 H 05/25/22 01:25 Resp 27 H 05/25/22 01:25 BP 154/104 05/25/22 01:25 Pulse Ox 94 05/25/22 01:25 O2 Del Method 05/25/22 00:55 O2 Flow Rate 5 05/24/22 18:44 FiO2 30 05/25/22 00:55 05/24/22 05/24/22 05/25/22 14:59 22:59 06:59 Intake Total 240.125 / 240.125 658 / 898.125 360 / 1258.125 Output Total 650 / 650 1400 / 2050 Balance -409.875 / -409.875 -742 / -1151.875 360 / -791.875 Weight last 48 hrs Weight 78.925 kg Physical Exam Narrative: A. fib RVR, variable S1-S2 Lower extremity edema trace, does not have significant signs of fluid overload Currently on BiPAP Nonfocal neuro exam Abdomen soft Assisted bilateral breath sounds with crackles EOMI, PERRLA Anxious appearing, verbally redirectable Patient was laying pretty calmly in her bed but when I asked her how she is feeling she stated she is not breathing well No conversational dyspnea Urinary Catheter Management: Alcala Latex Free: Cath Placed During This Visit: no Reason for Continuing Indwelling Catheter: Accurate Measurement of Urinary Output in Critically Ill Patients Data 05/25/22 02:51 05/24/22 05:25 Micro: Microbiology 05/23/22 12:40 Blood Culture - Preliminary Blood NEGATIVE TO DATE 05/23/22 12:30 Blood Culture - Preliminary Blood NEGATIVE TO DATE 05/23/22 23:10 Legionella Urinary Antigen - Final Urine,Voided Bacterial Antigens - Final A&P Assessment and plan (1) HTN (hypertension): (2) CAD (coronary artery disease): (3) Atrial fibrillation with RVR: (4) Acute exacerbation of chronic obstructive airways disease: (5) Congestive heart failure: (6) Lower extremity edema: Plan Acute CHF exacerbation related to tachyarrhythmia A. fib RVR with underlying mitral regurgitation Continue diuresis BiPAP to decrease work of breathing Patient is full code Alcala catheter placed for accurate urine output measurement 1100 cc obtained last night Creatinine seems to run baseline Patient is hypertensive as well Optimize antihypertensive regimen, continue sotalol Monitor QTc interval Check potassium and mag level Full code Cardiac diet DVT prophylaxis on board Cardiology consulted for A. fib RVR management, will follow up with the recommendations Chest x-ray is not showing any vascular congestion or worsening, I do believe he has underlying anxiety/panic attack issues for which we can use Precedex if needed with BiPAP, will put her on Xanax twice daily as needed for now Attestations Medical Necessity Statement*: Continue medical management Time Spent in Patient Care: 40 Coding Level of Care Code Acute Information Systems Manager for [employer] Fwd Diagnoses HTN (hypertension) I10 CAD (coronary artery disease) I25.10 Atrial fibrillation with RVR I48.91 Acute exacerbation of chronic obstructive airways disease J44.1 Congestive heart failure I50.9 Lower extremity edema R60.0
[2022-05-25 04:19] LABS: Blood Urea Nitrogen 28 mg/dL (8-23); Calcium 9.2 mg/dL (8.5-10.5); Carbon Dioxide 35 mmol/L (22-29); Chloride 96 mmol/L (98-107); Creatinine Clr Calc Pharmacy 53.5751; Glucose 139 mg/dL (65-115); Magnesium 2.2 mg/dL (1.7-2.3); Osmolality Calculated 300 mOsm/kg (285-295); Sodium 141 mmol/L (136-145)
[2022-05-25 04:33] LABS: Anion Gap 13.6 (5-19); Potassium 3.6 mmol/L (3.5-5.1)
--- NOTE | 2022-05-25 04:56 | ECG_ITS ---
[facility] Test Date: 2022-05-25 Pat Name: Aimee Sorensen Department: Room: 106 Gender: Female Craft Demonstrator: : 1950 Requested By: Blanca Escalante Order Number: [id number] Mark MD: Ada Goodman M.D. Measurements Intervals [place] Rate: 120 P: 0 [place]: 0 QRS: 102 QRSD: 100 T: 24 QT: 352 QTc: 499 Interpretive Statements ATRIAL FIBRILLATION WITH RAPID VENTRICULAR RESPONSE RIGHT AXIS DEVIATION [QRS AXIS > 100] NONSPECIFIC ST & T-WAVE ABNORMALITY Compared to ECG 05/25/2022 01:13:31 Aberrant conduction of supraventricular beat(s) no longer present Ventricular premature complex(es) no longer present T-wave abnormality still present Electronically Signed On 05-25-2022 6:02:09 REAL ESTATE APPRAISER SUPERVISOR by Ada Goodman M.D. [email or web address]. [email or web address]/[id number]
--- NOTE | 2022-05-25 07:59 | XR_ITS ---
WS: [id number] PORTABLE CHEST HISTORY: SOB COMPARISON: 05/24/2022 Hyperinflated lungs. No consolidation. No significant pulmonary edema or fluid overload. No consolida tion or pneumonia. No pleural effusion or pneumothorax. Cardiac size: Moderately enlarged cardiac silhouette. Mediastinum/Aorta: Normal mediastinum. Diffuse osteopenia. Prior cervical fusion. Prior CABG. XR/XR chest 1V portable [id number] IMPRESSION: 1. Chronic emphysema with no pneumonia. 2. No CHF. 3. Moderate cardiomegaly and prior CABG.
[2022-05-25] MEDS: apixaban 5 mg Tablet PO ×2 (08:20→18:19)
[2022-05-25] MEDS: hyDRALAzine 20 mg/mL INJ 1 mL IVP (08:20)
[2022-05-25] MEDS: donepezil 5 MG Tablet 10 MG PO (08:20)
[2022-05-25] MEDS: aspirin 81 mg EC Tablet PO (08:20)
[2022-05-25] MEDS: ferrous sulfate EC 325 mg Tablet PO ×2 (08:20→18:19)
[2022-05-25] MEDS: isosorbide mononitrate ER 30 mg Tablet PO (08:20)
[2022-05-25] MEDS: pantoprazole DR 40 mg Tablet PO ×2 (08:20→18:20)
[2022-05-25] MEDS: pregabalin 100 mg Capsule PO ×2 (08:20→18:20)
--- NOTE | 2022-05-25 10:43 | PC.CHAP ---
Pastoral Care Encounter/Spiritual Assessment Type of Contact [] Declined quality assurance/r&d lab technician visit [] Patient/Family/Request visit [] Outpatient visit [] Follow-up visit [] Physician referral [] Code/Alert [x] Routine visit [] Staff referral [] Actively dying [x] Patient sleeping [] Family support [] [] Out of room [] Palliative care [] [] Receiving care in room [] Pre-surgical visit [] Trauma [] Long length of stay [] ICU visit [] Other: Relational/Emotional Strength [] Patient feels connected with others/family/visitors/staff [] Distress [] Loneliness/isolation [] Abandonment Spirituality of Patient [] Person of Una [] Attends Quaker of their Una [] Believes in Prayer [] Reads Bible or Mu-Ism materials [] There are Spiritual issues to be addressed Resident Physician In Radiology Interventions [] Prayer [] Active listening [] Non-anxious presence [] Spiritual/emotional support [] Crisis/trauma care [] Spiritual counseling [] Bereavement support [] Provided bereavement packet [] Provided Bible/devotional materials [] Provided toy/stuffed animal, coloring book to patient or family member [] Provided Communion [] Anointing/[place] [] Salvation [] Completed spiritual assessment [] Other: Impact on Illness or Injury [] Angry [] Fearful [] Anxious [] Often cries [] Exhaustion [] Unable to work [] Unable to attend restoration [] Unable to walk/stand [] Unable to read [] Unable to drive [] Unable to eat/drink [] Unable to sleep [] Unable to be with family [] Patient intubated [] Other: Summary Time spent with patient
--- NOTE | 2022-05-25 10:59 | P.CONIM_ITS ---
Providers/Reason For Consult Consulting Physician/Specialty*: Dr. Goodman, cardiology Reason for Consult*: Poorly controlled atrial fibrillation, CHF Attending Physician: Atilio Astorga MD Primary Care Provider: Ashley Varela NP History of Present Illness History of Present Illness Aimee Sorensen is a 71 year old female past medical history of coronary artery disease s/p triple bypass surgery in [place] in 2002 (SVG graft to the distal RCA and a graft (not described as LINDO) to LAD and OM). Her bypass graft of the RCA was found to be occluded and it appeared that she had three stents placed in 2005, hypertension, dyslipidemia, COPD, chronic active smoker, persistent atrial fibrillation on Eliquis and sotalol presents to the hospital with shortness of breath. I am not seening any EKG's in last 2 years with SR and no prior mention of cardioversion. No stress tests since 2012 that I can see. She was found to be in decompensated congestive heart failure as well as atrial fibrillation with rapid ventricle response and some chest pain prior to arrival to ER and she took 2 nitro after which the pain resolved.? She also had edema, worsening SOB. Chest x-ray shows enlarged heart and trace atelectasis or scarring noted in left lung base.?BNP 12,933, she was given 40 mg x 1, Cardizem 10 IV push x1, Lasix 40 IV x1, Levaquin 750x1 and placed on a Cardizem drip.? Since admission, she has been diuresed. She is still requiring BiPaP on and off. She has had episodes described as anxiety with tachypnea, SOB and a. fib with RVR. Review of Systems Const: Denies: fever(s), chills or fatigue Eyes: Denies: change in vision or eye discomfort ENMT: Reports: nasal discharge and nasal congestion; Denies: throat pain or odynophagia Card: Reports: chest pain, edema and dyspnea on exertion; Denies: palpitations, swelling of feet/ankles or orthopnea Resp: Reports: dyspnea; Denies: productive cough or non-productive cough GI: Reports: nausea; Denies: abdominal pain, vomiting, diarrhea, constipation or hematochezia : Denies: flank pain, dysuria or hematuria Musc: Denies: neck pain, back pain or extremity swelling Skin/Breast: Denies: rash or new lesions Neuro: Denies: headache(s), numbness in extremities or weakness in extremities Psych: Reports: anxiety; Denies: depression Gabe/Lymph: Denies: petechiae or purpura All/Imm: Denies: facial swelling or acute wheezing Medications/Allergies Home Medications Medication Instructions Recorded Confirmed Last Taken Type acetaminophen 650 mg 650 mg PO Q12H 08/06/20 05/23/22 01/21/21 History tablet,extended release aspirin 81 mg tablet,delayed 81 mg PO DAILY 08/06/20 05/23/22 05/22/22 History release atorvastatin 80 mg tablet 80 mg PO QPM 08/06/20 05/23/22 05/22/22 History cholecalciferol (vit D3) 5,500 1 tab PO Q2D 08/06/20 05/23/22 05/22/22 History unit-vit K2 200 mcg tablet donepezil 10 mg tablet 10 mg PO DAILY 08/06/20 05/23/22 05/22/22 History meloxicam 15 mg tablet 15 mg PO DAILY 08/06/20 05/23/22 05/22/22 History montelukast 10 mg tablet 10 mg PO QPM 08/06/20 05/23/22 05/22/22 History multivitamin 1 tab PO DAILY 08/06/20 05/23/22 05/22/22 History pantoprazole 40 mg tablet,delayed 40 mg PO BID 08/06/20 05/23/22 05/22/22 History release sotalol 80 mg tablet 40 mg PO BID 08/06/20 05/23/22 05/22/22 History tizanidine 4 mg capsule 4 mg PO Q8H PRN Muscle Pain 08/06/20 05/23/22 01/21/21 History trazodone 150 mg tablet 150 mg PO BEDTIME 08/06/20 05/23/22 05/22/22 History vit B complex 100 combo no.2 100 1 tab PO DAILY 08/06/20 05/23/22 05/22/22 History mg tablet,extended release (B-100 Complex ER) ferrous sulfate 325 mg (65 mg 325 mg PO BID 11/17/21 05/23/22 05/22/22 History iron) tablet dicyclomine 20 mg tablet 20 mg PO QID PRN PAIN 0605/23/22 04/11/22 History pregabalin 100 mg capsule 100 mg PO BID 11/18/21 05/23/22 05/22/22 History albuterol sulfate 90 mcg/actuation 2 puff inhalation Q6H PRN 11/20/21 05/23/22 Unknown Rx aerosol inhaler shortness of breath or wheezing #8.5 grams apixaban 5 mg tablet (Eliquis) 5 mg PO BID #180 tabs 11/28/21 05/23/22 05/22/22 Rx fluticasone fur. 100 mcg-umeclid 1 inh inhalation DAILY #60 ea 03/17/22 05/23/22 05/22/22 Rx 62.5 mcg-vilant 25 mcg inhalat.powder (Trelegy Ellipta) isosorbide mononitrate 30 mg 30 mg PO DAILY #30 tabs 04/11/22 05/23/22 05/22/22 Rx tablet,extended release 24 hr nitroglycerin 0.4 mg sublingual 0.4 mg sublingual Q5M PRN chest 04/11/22 05/23/22 Unknown Rx tablet pain #30 tabs ipratropium 0.5 mg-albuterol 3 mg 3 ml inhalation Q6H PRN shortness 04/15/22 05/23/22 Unknown Rx (2.5 mg base)/3 mL nebulization of breath or wheezing #180 mL soln olmesartan 40 mg tablet 40 mg PO DAILY 05/11/22 05/23/22 05/22/22 History furosemide 40 mg tablet 40 mg PO BID 05/12/22 05/23/22 05/22/22 History potassium chloride 10 mEq 20 meq PO DAILY 05/12/22 05/23/22 05/22/22 History tablet,extended release Allergies Allergy/AdvReac Type Severity Reaction Status Date / Time adhesive tape Allergy Severe ALGY-Bliste Verified 05/11/22 08:41 r codeine Allergy Unknown Verified 05/11/22 08:41 hydrocodone [From Vicodin] Allergy Unknown Verified 05/11/22 08:41 Current Medications Generic Name Dose Route Start Last Admin Trade Name Freq PRN Reason Stop Dose Admin Albuterol/Ipratropium 3 ml 05/23/22 20:00 05/25/22 08:13 Ipratropium-Albuterol 3 Ml Neb INHALATION 3 ml Q4H.RESPIRATORY MARISEL Administration Apixaban 5 mg 05/23/22 18:00 05/25/22 08:20 Apixaban 5 Mg Tablet PO 5 mg BID MARISEL Administration Aspirin 81 mg 05/24/22 09:00 05/25/22 08:20 Aspirin 81 Mg Ec Tablet PO 81 mg DAILY MARISEL Administration Atorvastatin Calcium 80 mg 05/23/22 18:00 05/24/22 17:01 Atorvastatin 40 Mg Tablet PO 80 mg QPM MARISEL Administration Diltiazem HCl 30 mg 05/24/22 10:45 05/25/22 10:08 Diltiazem 30 Mg Tablet PO 30 mg Q6H MARISEL Administration Donepezil HCl 10 mg 05/24/22 09:00 05/25/22 08:20 Donepezil 5 Mg Tablet PO 10 mg DAILY MARISEL Administration Ferrous Sulfate 325 mg 05/23/22 18:00 05/25/22 08:20 Ferrous Sulfate Ec 325 Mg Tablet PO 325 mg BID MARISEL Administration Isosorbide Mononitrate 30 mg 05/24/22 09:00 05/25/22 08:20 Isosorbide Mononitrate Er 30 Mg Tablet PO 30 mg DAILY MARISEL Administration Lorazepam 0.25 mg 05/24/22 16:07 05/24/22 23:33 Lorazepam 0.5 Mg Tablet PO 0.25 mg TID PRN Administration ANXIETY Pantoprazole Sodium 40 mg 05/23/22 18:00 05/25/22 08:[address] 40 Mg Tablet PO 40 mg BID MARISEL Administration Pregabalin 100 mg 05/23/22 18:00 05/25/22 08:20 Pregabalin 100 Mg Capsule PO 100 mg BID MARISEL Administration Sotalol HCl 40 mg 05/23/22 21:00 05/24/22 17:03 Sotalol 80 Mg Tablet PO 40 mg QPM MARISEL Administration Sotalol HCl 60 mg 05/25/22 06:00 05/25/22 04:09 Sotalol 80 Mg Tablet PO 60 mg QAM MARISEL Administration Trazodone HCl 150 mg 05/23/22 21:00 05/24/22 20:28 Trazodone 150 Mg Tablet PO Not Given BEDTIME MARISEL PFSH Acute PFSH: Medical History Acute exacerbation of chronic obstructive pulmonary disease Allergic rhinitis Atrial fibrillation Atrial fibrillation with RVR Bilateral wheezing CAD (coronary artery disease) Chronic low back pain GERD (gastroesophageal reflux disease) HTN (hypertension) Hyperlipidemia Hypertension IBS (irritable bowel syndrome) Insomnia Memory loss Surgical History History of coronary artery stent placement Hx of coronary artery bypass graft S/P triple vessel bypass Family History Other CAD (coronary artery disease) Dementia Family history of premature coronary artery disease Hypertension Social History Smoking and tobacco status: current every day smoker cigarettes Packs smoked per day: 1 Years cigarettes smoked: 55 [ Other cigarette details: 4 cigarettes per day currently] Female Reproductive History: Date of last menstrual period: 10/29/05 Vitals/I&O/Wt Last Vital Signs Temp 98.4 F 05/25/22 07:25 Pulse 114 H 05/25/22 08:00 Resp 20 H 05/25/22 08:00 BP 126/101 05/25/22 07:25 Pulse Ox 90 05/25/22 08:00 O2 Del Method 05/25/22 08:00 O2 Flow Rate 6 05/25/22 08:00 FiO2 30 05/25/22 00:55 05/24/22 05/25/22 05/25/22 22:59 06:59 14:59 Intake Total 658 / 898.125 360 / 1258.125 Output Total 1400 / 2050 Balance -742 / -1151.875 360 / -791.875 Weight last 48 hrs Weight 174 lb Physical Exam Narrative: GENERAL: Averagely built and averagely nourished in no acute distress HEENT: Extraocular movement intact. No pallor or icterus. NECK: central trachea, No JVD, No carotid bruit. CARDIOVASCULAR SYSTEM: S1-S2 irregular. tachycardia+, No murmur or gallops heard RESPIRATORY SYSTEM: Chest clear to auscultation. No wheezes rhonchi or rubs he carmina. On BiPaP ABDOMEN: Soft, nontender and nondistended. Normal bowel sounds present. EXTREMITIES: No cyanosis, trace edema. No signs of chronic venous insufficiency. AUTO MACHINIST: Patient is alert oriented ?3. No focal neurological deficits. SKIN: Normal turgor and temperature. PSYCH: Normal insight and judgment. Urinary Catheter Management: Alcala Latex Free: Cath Placed During This Visit: yes Reason for Continuing Indwelling Catheter: Acute Urinary Retention or Obstruction Urinary Catheter Date of Insertion: 05/24/22 Urinary Catheter Time of Insertion: 16:28 Data 05/25/22 02:51 05/25/22 02:51 Other Labs: Troponin T 16-->17-->16. Micro: Microbiology 05/23/22 12:40 Blood Culture - Preliminary Blood NEGATIVE TO DATE 05/23/22 12:30 Blood Culture - Preliminary Blood NEGATIVE TO DATE 05/23/22 23:10 Legionella Urinary Antigen - Final Urine,Voided Bacterial Antigens - Final Other data: CTA chest (05/25/22) IMPRESSION: ? 1.? No evidence of pulmonary embolus. 2.? Proximal main pulmonary arteries are somewhat prominent which can be seen with pulmonary arterial hypertension. 3.? Both lungs are well aerated. No acute pulmonary infiltrates. 4.? Prior sternotomy with CABG. Cardiomegaly. 5.? No other acute findings. CXR (05/25/22) IMPRESSION: ? 1.? Chronic emphysema with no pneumonia. 2.? No CHF. 3.? Moderate cardiomegaly and prior CABG TTE (05/24/22) CONCLUSIONS ?1. Normal left ventricular cavity size. Mildly decreased left ?ventricular systolic function. Left ventricular ejection ?fraction is estimated at 40-45%.? Mild global hypokinesis.? ?Abnormal septal motion. ?2. Dilated right ventricle.? Moderately decreased right ?ventricular systolic function. ?3. Mild pulmonary hypertension with pulmonary pressure estimated ?at 39 mmHg. ?4. Moderate mitral valve regurgitation. ?5. Mild tricuspid valve regurgitation. ?6.? When compared to study dated 11/05/2021, left ventricular ?and right ventricular systolic function has decreased. 11/05/21 Procedure(s): CV. echo complete* [id number] ?CONCLUSIONS ?Technically limited quality echocardiogram because of poor ?ultrasonic windows. ?LV systolic function is normal with EF of 50 to 55%. ?Diastolic function is indeterminate because of atrial ?fibrillation. ?Left atrium is dilated. ?Moderate mitral regurgitation. ?Mild tricuspid regurgitation. ?Mild to moderate pulmonic regurgitation. ?No comparison studies are available. A&P Assessment and plan (1) Atrial fibrillation with RVR: Options here are rate control and rhythm control. -will increase sotalol to 80 am and 40 pm. -will talk to patient when she is more receptive about JAMI/CV -continue Eliquis -continue to diurese (2) Congestive heart failure: HFmrEF and RV dysfunction LOS - ~3L plan for stress test. (3) CAD (coronary artery disease): s/p CABGx 3 and stents, (4) HTN (hypertension): (5) Hyperlipidemia: Plan Moderate MR Mild TR COPD Pulmonary hypertension Active smoker Thank you for allowing me to participate in patient's care. Please feel free to call with questions or concerns. Consult Attestations Time Spent in Patient Care: Greater than 35 minutes Coding Level of Care Code Acute Forestry Technical Officer for Con Hinojsoa Diagnoses Atrial fibrillation with RVR I48.91 Congestive heart failure I50.9 CAD (coronary artery disease) I25.10 HTN (hypertension) I10 Hyperlipidemia E78.5
--- NOTE | 2022-05-25 12:08 | ECG_ITS ---
[facility] Test Date: 2022-05-25 Pat Name: Aimee Sorensen Department: Room: 106 Gender: Female Surgical Specialist: : 1950 Requested By: Ada Goodman Order Number: [id number] Reading MD: Ada Goodman M.D. Measurements Intervals [place] Rate: 114 P: 0 AK: 0 QRS: 99 QRSD: 106 T: 3 QT: 377 QTc: 520 Interpretive Statements ATRIAL FIBRILLATION WITH RAPID VENTRICULAR RESPONSE BORDERLINE RIGHT AXIS DEVIATION [QRS AXIS > 90] ST DEVIATION AND MODERATE T-WAVE ABNORMALITY, CONSIDER ANTERIOR ISCHEMIA [-0.1+ mV T-WAVE IN V3/V4] Compared to ECG 05/25/2022 04:56:33 Possible ischemia now present T-wave abnormality still present Electronically Signed On 05-25-2022 15:32:47 FLIGHT TEST ENGINEER by Ada Goodman M.D. [id number]
--- NOTE | 2022-05-25 12:28 | CT_ITS ---
WS: [id number] CTA OF THE CHEST WITH PULMONARY EMBOLISM PROTOCOL TECHNIQUE: High-resolution contrast enhanced CTA of the chest with coronal and sagittal reformatted i julia with pulmonary embolism protocol. MIP images are also reviewed. CLINICAL INFORMATION: hypoxia afib COMPARISON: None. DLP: 402.[address] scans at [facility] use at least one of these dose optimization techniques: automated e xposure control; mA and/or kV adjustment per patient size (includes targeted exams where dose is matc hed to clinical indication); or iterative reconstruction. FINDINGS: Prominent proximal main pulmonary arteries can be seen with pulmonary arterial hypertension. Normal s egmental and subsegmental pulmonary arteries. No evidence of pulmonary embolus. Cardiomegaly. Sternotomy. CABG. Normal caliber thoracic aorta. Aortic calcification. No mediastinal o r hilar lymphadenopathy. No axillary lymphadenopathy. Small esophageal hiatal hernia. Splenic artery calcification. Adrenal glands are normal. Partially vi sualized RIGHT renal cyst measuring 4.3 CM. Lungs are well aerated. No acute pulmonary infiltrates. N o focal pneumonia. Calcified granuloma RIGHT upper lobe. Postoperative changes lower cervical spine. CT/CT angio chest PE protcl [id number] IMPRESSION: 1. No evidence of pulmonary embolus. 2. Proximal main pulmonary arteries are somewhat prominent which can be seen w ith pulmonary arterial hypertension. 3. Both lungs are well aerated. No acute pulmonary infiltrates. 4. Prior sternotomy with CABG. Cardiomegaly. 5. No other acute findings.
[2022-05-25] MEDS: sotalol 80 mg Tablet 20 MG PO (12:44)
[2022-05-25] MEDS: iohexol 350 mg/mL 500 mL Btl (per mL) IV (13:08)
--- NOTE | 2022-05-25 17:14 | ECG_ITS ---
[facility] Test Date: 2022-05-25 Pat Name: Aimee Sorensen Department: Room: 106 Gender: Female Chamber Walker: : 1950 Requested By: Blanca Escalante Order Number: [id number] Mark MD: Ada Goodman M.D. Measurements Intervals [place] Rate: 124 P: 0 CO: 0 QRS: 109 QRSD: 103 T: 0 QT: 185 QTc: 266 Interpretive Statements ATRIAL FIBRILLATION WITH RAPID VENTRICULAR RESPONSE POSSIBLE RIGHT VENTRICULAR HYPERTROPHY [SOME/ALL OF: PROMINENT R IN V1, LATE TRANSITION, RAD, TONG, SSS] NONSPECIFIC ST & T-WAVE ABNORMALITY Compared to ECG 05/25/2022 12:08:09 Possible ischemia no longer present T-wave abnormality still present Electronically Signed On 05-26-2022 8:03:00 RETAIL INVENTORY CONTROL CLERK by Ada Goodman M.D. [id number]
[2022-05-25] MEDS: atorvastatin 40 mg Tablet 80 MG PO (18:19)
[2022-05-25] MEDS: trazodone 150 mg Tablet PO (20:48)
[2022-05-25] MEDS: LORazepam 0.5 mg Tablet 0.25 MG PO (20:48)
[2022-05-25] MEDS: sotalol 80 mg Tablet 40 MG PO (20:48)
[2022-05-26] VITALS (58 sets, daily range): BP systolic 81–135; BP diastolic 54–104; PULSE 92–134; RESP 2–29; TEMP 36.6–37.6; O2SAT 89–100
--- NOTE | 2022-05-26 | ECG_ITS ---
[facility] Test Date: 2022-05-26 Pat Name: Aimee Sorensen Department: Room: 106 Gender: Female Filter Tender Jelly: Rianna Pollock : 1950 Requested By: Ada Goodman Order Number: [id number] Mark MD: Ada Goodman M.D. Interpretive Statements NAME OF STUDY: LEXISCAN SESTAMIBI STRESS TEST INDICATION: Chest Pain PROCEDURE: At the baseline, the blood pressure was 119/90 mmHg, oxygen saturation 97% with a heart rate of 111 bpm. The electrocardiogram showed atrial fibrillation with rapid ventricular response, right axis deviation. Poor anterior R wave progression. The Lexiscan was infused over a period of 20 seconds. A total of 0.4 milligrams of Lexiscan was infused. The stress phase was continued for a total of 5 minutes. Heart rate at the end of the stress phase was 129 bpm, oxygen saturation 97% with a blood pressure of 113/82 mmHg. The EKG at the peak infusion revealed no significant ST-T wave changes. The study was terminated protocol completion. Patient complained of chest discomfort during Lexiscan infusion which resolved spontaneously by discharge. Isolated PVCs noted during Lexiscan infusion. Sestamibi was injected 20 seconds after the Lexiscan infusion. Blood pressure at the end of the recovery phase was 114/86 mmHg, oxygen saturation 97% with a heart rate of 130 beats per minute. CONCLUSION: 1. No significant EKG changes with the LexiScan infusion. 2. No LexiScan induced chest pain or cardiac arrhythmia. 3. Normal blood pressure and heart rate response. 4. Sestamibi/sestamibi perfusion scan pending; see separate report. Electronically Signed On 05-26-2022 13:05:20 BEVELING MACHINE OPERATOR by Ada Goodman M.D. [id number]
[2022-05-26] MEDS: ipratropium-albuterol 3 mL Neb INHALATION ×5 (00:31→21:14)
[2022-05-26 03:11] LABS: Basophils % 0.1 %; Hematocrit 33.6 % (37.0-47.0); Hemoglobin 10.8 g/dL (11.5-15.3); Lymphocytes # 0.6 10^3/uL (0.8-4.8); Lymphocytes % 8.1 %; Mean Corpuscular HGB Conc 32.1 g/dL (30.0-36.0); Mean Corpuscular Hemoglobin 30.9 pg (28.0-34.0); Mean Corpuscular Volume 96.3 fl (81-99); Mean Platelet Volume 10.3 fL (7.4-10.4); Monocytes # 0.6 10^3/uL (0.2-0.9); Monocytes % 8.8 %; Neutrophils # 5.61 10^3/uL (1.8-7.7); Neutrophils % 82.7 %; Nucleated Red Blood Cells % 0 %; Platelet Count 167 10^3/cmm (130-400); Red Blood Count 3.49 10^6/uL (4.1-5.3); Red Cell Distribution Width 14.2 % (12.1-15.1); White Blood Count 6.8 10^3/uL (4.0-10.0)
[2022-05-26 03:34] LABS: Anion Gap 9.6 (5-19); Blood Urea Nitrogen 27 mg/dL (8-23); Calcium 9.1 mg/dL (8.5-10.5); Carbon Dioxide 38 mmol/L (22-29); Chloride 96 mmol/L (98-107); Glucose 134 mg/dL (65-115); Osmolality Calculated 297 mOsm/kg (285-295); Potassium 3.6 mmol/L (3.5-5.1); Sodium 140 mmol/L (136-145)
[2022-05-26] MEDS: dilTIAZem 30 mg Tablet PO ×4 (03:35→20:11)
[2022-05-26] MEDS: regadenoson 0.4 Mg/5 ml Syringe IVP (08:00)
[2022-05-26] MEDS: aspirin 81 mg EC Tablet PO (09:49)
[2022-05-26] MEDS: donepezil 5 MG Tablet 10 MG PO (09:49)
[2022-05-26] MEDS: potassium chloride ER 20 mEq Tablet 40 MEQ PO (09:49)
[2022-05-26] MEDS: isosorbide mononitrate ER 30 mg Tablet PO (09:49)
[2022-05-26] MEDS: ferrous sulfate EC 325 mg Tablet PO ×2 (09:50→18:15)
[2022-05-26] MEDS: FUROsemide 10 mg/mL SDV 4mL 40 MG IVP (09:50)
[2022-05-26] MEDS: pregabalin 100 mg Capsule PO (09:50)
[2022-05-26] MEDS: pantoprazole DR 40 mg Tablet PO ×2 (09:50→18:16)
[2022-05-26] MEDS: sotalol 80 mg Tablet PO (09:50)
[2022-05-26] MEDS: apixaban 5 mg Tablet PO ×2 (09:50→18:15)
--- NOTE | 2022-05-26 10:20 | PM.PN ---
Subjective Subjective: Patient went for cardiac stress test She still complaining of shortness of breath Currently on 2 L of nasal cannula Family at the bedside daughters were updated all questions were answered They had questions regarding cardioversion radiofrequency ablation Patient is full code Negative fluid balance A. fib RVR I have given her a dose of potassium 40 mEq CTA did not show any PE Vitals/I&O/Wt Last Vital Signs Temp 97.9 F 05/26/22 03:25 Pulse 130 H 05/26/22 10:00 Resp 20 H 05/26/22 10:00 BP 132/98 05/26/22 10:00 Pulse Ox 94 05/26/22 10:00 O2 Del Method 05/26/22 05:00 O2 Flow Rate 3 05/25/22 20:01 FiO2 30 05/26/22 05:00 05/25/22 05/26/22 05/26/22 22:59 06:59 14:59 Intake Total 320 / 320 0 / 0 Output Total 700 / 1300 Balance 320 / -280 -700 / -980 0 / 0 Physical Exam Narrative: Patient is laying supine Currently on 2 L Bilateral breath sounds with crackles at the base of the lungs Abdomen soft No signs of congestive heart failure clinically 3 daughters at the bedside Patient is awake and alert Nonfocal neuro exam S1, S2 variable A. fib RVR heart rate fluctuating between 110s to 130s Urinary Catheter Management: Alcala Latex Free: Cath Placed During This Visit: yes Reason for Continuing Indwelling Catheter: Accurate Measurement of Urinary Output in Critically Ill Patients Urinary Catheter Date of Insertion: 05/24/22 Urinary Catheter Time of Insertion: 16:28 Data 05/26/22 02:29 05/26/22 02:29 Micro: Microbiology 05/24/22 16:11 MRSA Culture - Final Nose A&P Assessment and plan (1) Atrial fibrillation with RVR: (2) CAD (coronary artery disease): (3) HTN (hypertension): (4) Hyperlipidemia: (5) Exertional dyspnea: (6) Hypokalemia: Plan Acute preserved ejection fraction heart failure exacerbation The new echo showing mildly reduced action fraction of right ventricle and left ventricle Right ventricle reduced EF, CTA was done yesterday which did not show PE, stress test has been completed today official report is pending to rule out coronary ischemia If no signs of coronary ischemia this could be tachyarrhythmia related worsening of EF Currently patient is euvolemic I have switched IV Lasix to p.o. regimen Family had questions regarding moderate mitral valve regurgitation Hypokalemia: Potassium repleted A. fib with acute RVR Patient has not responded to sotalol, and Cardizem Plan for cardioversion? Will touch base with Dr. Goodman COPD exacerbation due to above-mentioned etiologies Intermittent use of BiPAP patient currently doing well on 2 L nasal cannula No orthopnea PND patient is laying supine Full code Cardiac diet Family updated DVT prophylaxis on board Patient has been adequately anticoagulated for her A. fib RVR Attestations Medical Necessity Statement*: Continue medical management Time Spent in Patient Care: 40 Coding Level of Care Code Acute Vertical Mill Operator for Chg Fwd Diagnoses Atrial fibrillation with RVR I48.91 CAD (coronary artery disease) I25.10 HTN (hypertension) I10 Hyperlipidemia E78.5 Exertional dyspnea R06.00 Hypokalemia E87.6
--- NOTE | 2022-05-26 10:53 | PC.SOCIAL ---
Pg 2 IMM Explained to pt Pg 2 IMM. No questions voiced. Provided pt a copy. Initialed, dated, & timed a copy & placed in chart.
--- NOTE | 2022-05-26 11:13 | P.PN_ITS ---
Subjective Subjective: Patient underwent stress test this morning. Medications: Reviewed: Yes Vitals/I&O/Wt Last Vital Signs Temp 97.9 F 05/26/22 03:25 Pulse 130 H 05/26/22 10:00 Resp 20 H 05/26/22 10:00 BP 132/98 05/26/22 10:00 Pulse Ox 94 05/26/22 10:00 O2 Del Method 05/26/22 05:00 O2 Flow Rate 3 05/25/22 20:01 FiO2 30 05/26/22 05:00 05/25/22 05/26/22 05/26/22 22:59 06:59 14:59 Intake Total 320 / 320 0 / 0 Output Total 700 / 1300 Balance 320 / -280 -700 / -980 0 / 0 Physical Exam Narrative: GENERAL: Averagely built and averagely nourished in no acute distress HEENT: Extraocular movement intact. No pallor or icterus. NECK: central trachea, No JVD, No carotid bruit. CARDIOVASCULAR SYSTEM: S1-S2 irregular. tachycardia+, No murmur or gallops heard RESPIRATORY SYSTEM: Chest clear to auscultation. No wheezes rhonchi or rubs heard. On BiPaP ABDOMEN: Soft, nontender and nondistended. Normal bowel sounds present. EXTREMITIES: No cyanosis, trace edema. No signs of chronic venous insufficien cy. SOFTWARE TEST AUTOMATION ENGINEER: Patient is alert oriented ?3. No focal neurological deficits. SKIN: Normal turgor and temperature. PSYCH: Normal insight and judgment. Urinary Catheter Management: Alcala Latex Free: Cath Placed During This Visit: yes Reason for Continuing Indwelling Catheter: Accurate Measurement of Urinary Output in Critically Ill Patients Urinary Catheter Date of Insertion: 05/24/22 Urinary Catheter Time of Insertion: 16:28 Data 05/26/22 02:29 05/26/22 02:29 Micro: Microbiology 05/24/22 16:11 MRSA Culture - Final Nose A&P Assessment and plan (1) Atrial fibrillation with RVR: Options here are rate control and rhythm control. -will continue sotalol 80 am and 40 pm. Continue Cardizem 30 mg p.o. every 6 hr -I had long discussion with patient and her three daughters about JAMI/CV. -continue Eliquis. All questions about JAMI cardioversion, A. fib ablation and whether or not patient is going to benefit from permanent pacemaker were discussed with patient and her family. -Rate control versus rhythm control strategies discussed with the patient -Risks and benefits were discussed with the patients. Alternate management options were discussed with the patient as well. Possible complications including risk of esophageal perforation and need for permanent post pacemaker post cardioversion were discussed as well. Plan is to proceed for the procedure tomorrow. -30 minutes were spent with the patient and family. (2) Congestive heart failure: HFmrEF and RV dysfunction -Concern for tachycardia induced cardiomyopathy LOS - ~ 4.1L -Appears fairly euvolemic on exam. Agree with transitioning Lasix to p.o. No ischemia on stress test. Very small area of decreased tracer uptake in on mid anterior wall with subtle reversibility likely d/t post CABG with LAD graft (3) CAD (coronary artery disease): s/p CABGx 3 and stents, (4) HTN (hypertension): (5) Hyperlipidemia: Plan Moderate MR Mild TR COPD Pulmonary hypertension Active smoker Thank you for allowing me to participate in patient's care. Please feel free to call with questions or concerns. Attestations Medical Necessity Statement*: Needs hospital stay for A. fib with RVR Time Spent in Patient Care: Greater than 35 minutes Coding Level of Care Code Acute Pediatric Critical Care Nurse for Chg Fwd Diagnoses Atrial fibrillation with RVR I48.91 Congestive heart failure I50.9 CAD (coronary artery disease) I25.10 HTN (hypertension) I10 Hyperlipidemia E78.5
--- NOTE | 2022-05-26 12:01 | ECG_ITS ---
[facility] Test Date: 2022-05-26 Pat Name: Aimee Sorensen Department: Room: 106 Gender: Female Roller Pneumatic: : 1950 Requested By: Ada Goodman Order Number: [id number] Mark MD: Tono Durán M.D. Measurements Intervals [place] Rate: 115 P: 0 MN: 0 QRS: 104 QRSD: 102 T: -5 QT: 356 QTc: 493 Interpretive Statements ATRIAL FIBRILLATION WITH RAPID VENTRICULAR RESPONSE WITH ABERRANT CONDUCTION OR VENTRICULAR PREMATURE COMPLEXES RIGHT AXIS DEVIATION [QRS AXIS > 100] NONSPECIFIC ST & T-WAVE ABNORMALITY Compared to ECG 05/25/2022 17:14:01 Ventricular premature complex(es) now present Aberrant conduction of supraventricular beat(s) now present Right-axis deviation now present Atrial abnormality no longer present T-wave abnormality still present Electronically Signed On 05-26-2022 16:15:43 PROSTHETIC MAKEUP DESIGNER by Tono Durán M.D. [id number]
--- NOTE | 2022-05-26 15:01 | NMCV_ITS ---
NM franci perf SPECT r/s* [id number] Aimee Sorensen Age: 71 Gender: F : 1950 Exam Date: 05/26/2022 15:01 Ordering Phys: Ada Goodman MD ([email or web address]) Technologist: IVETH Ball Exam Location: [facility] Indications: CHEST PAIN STRESS TEST Please see separate stress test report in [facility] for full findings IMAGE PROTOCOL Rest/Stress 1 Lexiscan Day Radiopharmaceutical Dose (mCi) Administration Site Administered by Rest: Tc-99m 10.8 IV IVETH Wells Sestamibi Stress:Tc-99m 32.9 IV IVETH Wells Sestamibi Rest: 26-May-2022 60 Discovery 630 Stress: 26-May-2022 30 Discovery 630 0.4mg Lexiscan. Supine position only as patient was unable to lay prone. SPECT RESULTS Technical Quality: Excellent Raw Data Analysis: Breast attenuation artifact Image Corrections: No attenuation or motion correction applied Summed Stress Score: 2 Summed Rest Score: 0 Summed Difference Score: 2 PERFUSION FINDINGS Small sized perfusion abnormality of mild severity of mid anterior wall on rest images with subtle reversibility in mid anterior wall on stress images. FUNCTIONAL RESULTS (calculated via Gated SPECT) Stress Image LV EF (%): 45 Stress EDV (mL):101 TID: 0.93 Stress ESV (mL):56 FUNCTIONAL FINDINGS: The left ventricle is normal in size. Transient Ischemia Dilatation of 0.93. The left ventricular ejection fraction is mildly reduced with a value of 45%. There is global hypokinesis. IMPRESSIONS 1. Small sized perfusion abnormality of mild severity of mid anterior wall with subtle reversibility in mid anterior wall. This likely represents breast attenuation artifact or old myocardial infarction (previous coronary artery bypass graft). 2. The left ventricular ejection fraction is mildly reduced with a value of 45%. There is global hypokinesis. 3. EKG portion of the study will be reported separately. 4. No significant coronary ischemia based on the study. Ada Goodman MD (Electronically Signed) Final Date: 26 May 2022 11:23 S
[2022-05-26] MEDS: acetaminophen 325 mg Tablet 650 MG PO (18:15)
[2022-05-26] MEDS: atorvastatin 40 mg Tablet 80 MG PO (18:15)
[2022-05-26] MEDS: sodium chloride 0.9% 250 ML IV (18:21)
[2022-05-26] MEDS: sotalol 80 mg Tablet 40 MG PO (19:20)
[2022-05-26] MEDS: LORazepam 0.5 mg Tablet 0.25 MG PO (20:11)
[2022-05-26] MEDS: benzonatate 100 mg Capsule PO (20:11)
[2022-05-26] MEDS: trazodone 150 mg Tablet PO (20:11)
[2022-05-27] VITALS (30 sets, daily range): BP systolic 100–126; BP diastolic 61–94; PULSE 80–127; RESP 12–24; TEMP 36.7–37.1; O2SAT 93–99
[2022-05-27] MEDS: ipratropium-albuterol 3 mL Neb INHALATION ×3 (01:45→08:07)
[2022-05-27 02:55] LABS: Basophils % 0.2 %; Eosinophils % 0.2 %; Hematocrit 36.3 % (37.0-47.0); Hemoglobin 11.6 g/dL (11.5-15.3); Lymphocytes # 0.9 10^3/uL (0.8-4.8); Lymphocytes % 16.5 %; Mean Corpuscular Volume 97.1 fl (81-99); Mean Platelet Volume 10.4 fL (7.4-10.4); Monocytes # 0.6 10^3/uL (0.2-0.9); Monocytes % 11.6 %; Neutrophils # 3.76 10^3/uL (1.8-7.7); Neutrophils % 71.1 %; Nucleated Red Blood Cells % 0 %; Platelet Count 168 10^3/cmm (130-400); Red Blood Count 3.74 10^6/uL (4.1-5.3); Red Cell Distribution Width 14.1 % (12.1-15.1); White Blood Count 5.3 10^3/uL (4.0-10.0)
[2022-05-27] MEDS: dilTIAZem 30 mg Tablet PO ×4 (03:13→20:10)
[2022-05-27 03:20] LABS: Alanine Aminotransferase 316 U/L (0-33); Albumin Level 3.4 g/dL (3.5-5.2); Alkaline Phosphatase 141 U/L (35-105); Aspartate Amino Transferase 271 U/L (0-32); Blood Urea Nitrogen 27 mg/dL (8-23); Calcium 8.9 mg/dL (8.5-10.5); Carbon Dioxide 36 mmol/L (22-29); Chloride 95 mmol/L (98-107); Globulin 2.7 g/dL (1.3-4.6); Glucose 105 mg/dL (65-115); Osmolality Calculated 293 mOsm/kg (285-295); Sodium 139 mmol/L (136-145); Total Bilirubin 0.6 mg/dL (0.15-1.2); Total Protein 6.1 g/dL (6.6-8.7)
[2022-05-27 03:29] LABS: Anion Gap 11.4 (5-19); Potassium 3.4 mmol/L (3.5-5.1)
[2022-05-27] MEDS: benzonatate 100 mg Capsule PO (06:10)
[2022-05-27] MEDS: sotalol 80 mg Tablet PO (06:11)
[2022-05-27] MEDS: potassium chloride ER 20 mEq Tablet 40 MEQ PO (08:58)
[2022-05-27] MEDS: aspirin 81 mg EC Tablet PO (08:59)
[2022-05-27] MEDS: ferrous sulfate EC 325 mg Tablet PO ×2 (08:59→17:56)
[2022-05-27] MEDS: apixaban 5 mg Tablet PO ×2 (08:59→17:55)
[2022-05-27] MEDS: donepezil 5 MG Tablet 10 MG PO (08:59)
[2022-05-27] MEDS: isosorbide mononitrate ER 30 mg Tablet PO (08:59)
[2022-05-27] MEDS: pantoprazole DR 40 mg Tablet PO ×2 (08:59→17:56)
[2022-05-27] MEDS: pregabalin 100 mg Capsule PO (08:59)
--- NOTE | 2022-05-27 11:20 | PM.PN ---
Subjective Subjective: This morning patient is not endorsing new complaints She is not short of breath, her blood pressure is stable, she was given 2049 bolus yesterday that improved her blood pressure, Lasix held for today Potassium repleted Plan for cardioversion tomorrow Vitals/I&O/Wt Last Vital Signs Temp 98.8 F 05/27/22 07:22 Pulse 112 H 05/27/22 08:15 Resp 16 05/27/22 08:07 BP 100/61 05/27/22 07:00 Pulse Ox 93 05/27/22 08:07 O2 Del Method 05/27/22 08:07 O2 Flow Rate 3 05/27/22 08:07 FiO2 30 05/27/22 08:00 05/26/22 05/27/22 05/27/22 22:59 06:59 14:59 Intake Total 850 / 1330 200 / 200 Output Total 700 / 2000 400 / 2400 Balance 150 / -670 -400 / -1070 200 / 200 Physical Exam Narrative: Patient is awake and alert and currently doing well on 2 L nasal cannula Variable S1-S2 heart rate in 70s Hemodynamically stable Awake and alert Nonfocal neuro exam Crackles improved Bilateral breath sound without adventitious rhonchi No signs of edema of legs Pleasant cooperative Nonfocal neuro exam Urinary Catheter Management: Alcala Latex Free: Cath Placed During This Visit: yes Reason for Continuing Indwelling Catheter: Accurate Measurement of Urinary Output in Critically Ill Patients Urinary Catheter Date of Insertion: 05/24/22 Urinary Catheter Time of Insertion: 16:28 Data 05/27/22 01:41 05/27/22 01:41 A&P Assessment and plan (1) Hypokalemia: (2) CAD (coronary artery disease): (3) Atrial fibrillation with RVR: (4) Acute exacerbation of chronic obstructive airways disease: (5) Congestive heart failure: (6) Smoker: Plan Plan for cardioversion tomorrow she received we will keep her n.p.o. after midnight Continue Eliquis 5 mg twice daily Continue Cardizem and sotalol a small bolus yesterday, Lasix held, potassium repleted Low blood pressure related to overdiuresis, hold Imdur Change DuoNeb to Xopenex Full code N.p.o. after midnight Attestations Medical Necessity Statement*: Cardioversion tomorrow for cardioversion tomorrow Time Spent in Patient Care: 40 Coding Level of Care Code Acute Hemmer Chainstitch for Chg Fwd Diagnoses Hypokalemia E87.6 CAD (coronary artery disease) I25.10 Atrial fibrillation with RVR I48.91 Acute exacerbation of chronic obstructive airways disease J44.1 Congestive heart failure I50.9 Smoker F17.200
[2022-05-27] MEDS: levalbuterol 1.25 mg/3 mL Neb INHALATION ×3 (11:23→21:35)
[2022-05-27] MEDS: ipratropium 0.5 mg/2.5 mL Neb INHALATION ×3 (11:23→21:35)
--- NOTE | 2022-05-27 12:54 | P.PN_ITS ---
Subjective Subjective: Patient feels well this morning Medications: Reviewed: Yes Vitals/I&O/Wt Last Vital Signs Temp 98.8 F 05/27/22 07:22 Pulse 111 H 05/27/22 11:35 Resp 18 05/27/22 11:23 BP 100/61 05/27/22 07:00 Pulse Ox 96 05/27/22 11:23 O2 Del Method 05/27/22 11:23 O2 Flow Rate 3 05/27/22 11:23 FiO2 30 05/27/22 08:00 05/26/22 05/27/22 05/27/22 22:59 06:59 14:59 Intake Total 850 / 1330 200 / 200 Output Total 700 / 2000 400 / 2400 Balance 150 / -670 -400 / -1070 200 / 200 Physical Exam Narrative: GENERAL: Averagely built and averagely nourished in no acute distress HEENT: Extraocular movement intact. No pallor or icterus. NECK: central trachea, No JVD, No carotid bruit. CARDIOVASCULAR SYSTEM: S1-S2 irregular. tachycardia+, No murmur or gallops heard RESPIRATORY SYSTEM: Chest clear to auscultation. No wheezes rhonchi or rubs heard. On BiPaP ABDOMEN: Soft, nontender and nondistended. Normal bowel sounds present. EXTREMITIES: No cyanosis, trace edema. No signs of chronic venous insu fficiency. CRIMINAL JUDGE: Patient is alert oriented ?3. No focal neurological deficits. SKIN: Normal turgor and temperature. PSYCH: Normal insight and judgment. Urinary Catheter Management: Alcala Latex Free: Cath Placed During This Visit: yes Reason for Continuing Indwelling Catheter: Accurate Measurement of Urinary Output in Critically Ill Patients Urinary Catheter Date of Insertion: 05/24/22 Urinary Catheter Time of Insertion: 16:28 Data 05/27/22 01:41 05/27/22 01:41 A&P Assessment and plan (1) Atrial fibrillation with RVR: Options here are rate control and rhythm control. -will continue sotalol 80 am and 40 pm. Continue Cardizem 30 mg p.o. every 6 hr -I had long discussion with patient and her three daughters about JAMI/CV. -continue Eliquis. All questions about JAMI cardioversion, A. fib ablation and whether or not patient is going to benefit from permanent pacemaker were discussed with patient and her family. -Rate control versus rhythm control strategies discussed with the patient -Risks and benefits were discussed with the patients. Alternate management options were discussed with the patient as well. Possible complications including risk of esophageal perforation and need for permanent post pacemaker post cardioversion were discussed as well. Plan is to proceed for the procedure tomorrow. -20 minutes were spent with the patient and family. (2) Congestive heart failure: HFmrEF and RV dysfunction -Concern for tachycardia induced cardiomyopathy LOS - ~ 4.1L -Appears fairly euvolemic on exam. Lasix held today No ischemia on stress test. Very small area of decreased tracer uptake in on mid anterior wall with subtle reversibility likely d/t post CABG with LAD graft (3) CAD (coronary artery disease): s/p CABGx 3 and stents, (4) HTN (hypertension): (5) Hyperlipidemia: Plan Moderate MR Mild TR COPD Pulmonary hypertension Active smoker Hypokalemia Thank you for allowing me to participate in patient's care. Please feel free to call with questions or concerns. Attestations Medical Necessity Statement*: needs hospital stay for A. fib with RVR Time Spent in Patient Care: 16 - 35 minutes Coding Level of Care Code Acute Aviation Tactical Readiness Officer for Chg Fwd Diagnoses Atrial fibrillation with RVR I48.91 Congestive heart failure I50.9 CAD (coronary artery disease) I25.10 HTN (hypertension) I10 Hyperlipidemia E78.5
--- NOTE | 2022-05-27 12:57 | ECG_ITS ---
[facility] Test Date: 2022-05-27 Pat Name: Aimee Sorensen Department: Room: 106 Gender: Female Electrician Manager: : 1950 Requested By: Ada Goodman Order Number: [id number] Mark MD: Ada Goodman M.D. Measurements Intervals [place] Rate: 108 P: 0 RI: 0 QRS: 102 QRSD: 105 T: -10 QT: 357 QTc: 480 Interpretive Statements ATRIAL FIBRILLATION WITH RAPID VENTRICULAR RESPONSE Compared to ECG 05/26/2022 14:51:05 Aberrant conduction of supraventricular beat(s) no longer present Ventricular premature complex(es) no longer present Right-axis deviation no longer present T-wave abnormality no longer present Electronically Signed On 05-27-2022 16:52:15 SOUNDSCRIBER MECHANIC by Ada Goodman M.D. [id number]
[2022-05-27] MEDS: atorvastatin 40 mg Tablet 80 MG PO (17:55)
[2022-05-27] MEDS: sotalol 80 mg Tablet 40 MG PO (17:56)
[2022-05-27] MEDS: LORazepam 0.5 mg Tablet 0.25 MG PO (20:10)
[2022-05-27] MEDS: trazodone 150 mg Tablet PO (20:10)
[2022-05-28] VITALS (20 sets, daily range): BP systolic 118–159; BP diastolic 83–118; PULSE 65–117; RESP 17–25; TEMP 37.2–37.4; O2SAT 92–98
[2022-05-28] MEDS: ipratropium 0.5 mg/2.5 mL Neb INHALATION ×6 (00:14→23:54)
[2022-05-28] MEDS: levalbuterol 1.25 mg/3 mL Neb INHALATION ×6 (00:14→23:54)
[2022-05-28 03:40] LABS: Alanine Aminotransferase 259 U/L (0-33); Albumin Level 3.5 g/dL (3.5-5.2); Alkaline Phosphatase 151 U/L (35-105); Anion Gap 8.1 (5-19); Aspartate Amino Transferase 176 U/L (0-32); Blood Urea Nitrogen 19 mg/dL (8-23); Calcium 9.3 mg/dL (8.5-10.5); Carbon Dioxide 37 mmol/L (22-29); Chloride 100 mmol/L (98-107); Globulin 2.6 g/dL (1.3-4.6); Glucose 117 mg/dL (65-115); Magnesium 2.1 mg/dL (1.7-2.3); Osmolality Calculated 295 mOsm/kg (285-295); Potassium 4.1 mmol/L (3.5-5.1); Sodium 141 mmol/L (136-145); Total Bilirubin 0.6 mg/dL (0.15-1.2); Total Protein 6.1 g/dL (6.6-8.7)
[2022-05-28] MEDS: dilTIAZem 30 mg Tablet PO (03:51)
[2022-05-28] MEDS: sotalol 80 mg Tablet PO (05:51)
--- NOTE | 2022-05-28 06:59 | ANES.PREANE2 ---
Pre-Anesthetic Assessment Height/Weight: Height 1.65 m Weight 78.925 kg Temp Pulse Resp BP Pulse Ox O2 Del Method O2 Flow Rate 98.3 F 98 23 H 151/118 92 4 05/27/22 20:26 05/28/22 04:42 05/28/22 04:02 05/28/22 04:02 05/28/22 04:02 05/28/22 04:02 05/28/22 04:02 FiO2 30 05/27/22 08:00 JAMI/Cardioversion Familial anesthetic complications: None Was Beta Yanci taken within 24 hours: Yes Was Clonidine taken within 24 hours: N/A Last intake: > 8hrs Social Tobacco and No alcohol Exam alert, oriented x 3, clear to auscultation bilaterally and regular rate & rhythm (a fib) Airway Mallampati: Class II Pulmonary Chronic Obstructive Pulmonary Disease CV/HEM Atrial Fibrillation, Coronary Artery Disease (cabg), Congestive Heart Failure and Hypertension Ef 45%, mod MR, pulm HTn Anesthetic Plan ASA status: 4 Anesthesia: MAC Risk of > 500 ml blood loss (7ml/kg in children): No Medications/Allergies Home Medications Medication Instructions Recorded Confirmed Last Taken Type acetaminophen 650 mg 650 mg PO Q12H 08/06/20 05/23/22 01/21/21 History tablet,extended release aspirin 81 mg tablet,delayed 81 mg PO DAILY 08/06/20 05/23/22 05/22/22 History release atorvastatin 80 mg tablet 80 mg PO QPM 08/06/20 05/23/22 05/22/22 History cholecalciferol (vit D3) 5,500 1 tab PO Q2D 08/06/20 05/23/22 05/22/22 History unit-vit K2 200 mcg tablet donepezil 10 mg tablet 10 mg PO DAILY 08/06/20 05/23/22 05/22/22 History meloxicam 15 mg tablet 15 mg PO DAILY 08/06/20 05/23/22 05/22/22 History montelukast 10 mg tablet 10 mg PO QPM 08/06/20 05/23/22 05/22/22 History multivitamin 1 tab PO DAILY 08/06/20 05/23/22 05/22/22 History pantoprazole 40 mg tablet,delayed 40 mg PO BID 08/06/20 05/23/22 05/22/22 History release sotalol 80 mg tablet 40 mg PO BID 08/06/20 05/23/22 05/22/22 History tizanidine 4 mg capsule 4 mg PO Q8H PRN Muscle Pain 08/06/20 05/23/22 01/21/21 History trazodone 150 mg tablet 150 mg PO BEDTIME 08/06/20 05/23/22 05/22/22 History vit B complex 100 combo no.2 100 1 tab PO DAILY 08/06/20 05/23/22 05/22/22 History mg tablet,extended release (B-100 Complex ER) ferrous sulfate 325 mg (65 mg 325 mg PO BID 11/17/21 05/23/22 05/22/22 History iron) tablet dicyclomine 20 mg tablet 20 mg PO QID PRN PAIN 11/18/21 05/23/22 04/11/22 History pregabalin 100 mg capsule 100 mg PO BID 11/18/21 05/23/22 05/22/22 History albuterol sulfate 90 mcg/actuation 2 puff inhalation Q6H PRN 11/20/21 05/23/22 Unknown Rx aerosol inhaler shortness of breath or wheezing #8.5 grams apixaban 5 mg tablet (Eliquis) 5 mg PO BID #180 tabs 11/28/21 05/23/22 05/22/22 Rx fluticasone fur. 100 mcg-umeclid 1 inh inhalation DAILY #60 ea 03/17/22 05/23/22 05/22/22 Rx 62.5 mcg-vilant 25 mcg inhalat.powder (Trelegy Ellipta) isosorbide mononitrate 30 mg 30 mg PO DAILY #30 tabs 04/11/22 05/23/22 05/22/22 Rx tablet,extended release 24 hr nitroglycerin 0.4 mg sublingual 0.4 mg sublingual Q5M PRN chest 04/11/22 05/23/22 Unknown Rx tablet pain #30 tabs ipratropium 0.5 mg-albuterol 3 mg 3 ml inhalation Q6H PRN shortness 04/15/22 05/23/22 Unknown Rx (2.5 mg base)/3 mL nebulization of breath or wheezing #180 mL soln olmesartan 40 mg tablet 40 mg PO DAILY 12/05/2105/23/22 05/22/22 History furosemide 40 mg tablet 40 mg PO BID 05/12/22 05/23/22 05/22/22 History potassium chloride 10 mEq 20 meq PO DAILY 05/12/22 05/23/22 05/22/22 History tablet,extended release Allergies Allergy/AdvReac Type Severity Reaction Status Date / Time adhesive tape Allergy Severe ALGY-Bliste Verified 05/11/22 08:41 r codeine Allergy Unknown Verified 05/11/22 08:41 hydrocodone [From Vicodin] Allergy Unknown Verified 05/11/22 08:41 Current Medications Generic Name Dose Route Start Last Admin Trade Name Freq PRN Reason Stop Dose Admin Acetaminophen 650 mg 05/23/22 10:56 05/26/22 18:15 Acetaminophen 325 Mg Tablet PO 650 mg Q6H PRN Administration Mild/Mod Pain Or Temp >/= 101 Apixaban 5 mg 05/23/22 18:00 05/27/22 17:55 Apixaban 5 Mg Tablet PO 5 mg BID MARISEL Administration Aspirin 81 mg 05/24/22 09:00 05/27/22 08:59 Aspirin 81 Mg Ec Tablet PO 81 mg DAILY MARISEL Administration Atorvastatin Calcium 80 mg 05/23/22 18:00 05/27/22 17:55 Atorvastatin 40 Mg Tablet PO 80 mg QPM MARISEL Administration Benzonatate 100 mg 05/26/22 19:42 05/27/22 06:10 Benzonatate 100 Mg Capsule PO 100 mg TID PRN Administration COUGH Diltiazem HCl 30 mg 05/24/22 10:45 05/28/22 03:51 Diltiazem 30 Mg Tablet PO 30 mg Q6H MARISEL Administration Donepezil HCl 10 mg 05/24/22 09:00 05/27/22 08:59 Donepezil 5 Mg Tablet PO 10 mg DAILY MARISEL Administration Ferrous Sulfate 325 mg 05/23/22 18:00 05/27/22 17:56 Ferrous Sulfate Ec 325 Mg Tablet PO 325 mg BID MARISEL Administration Furosemide 20 mg 05/27/22 08:00 05/26/22 18:09 Furosemide 20 Mg Tablet PO Not Given DAILY@0800 MARISEL Ipratropium [place] 0.5 mg 05/27/22 12:00 05/28/22 04:49 Ipratropium 0.5 Mg/2.5 Ml Neb INHALATION Not Given Q4H.RESPIRATORY MARISEL Isosorbide Mononitrate 30 mg 05/24/22 09:00 05/27/22 08:59 Isosorbide Mononitrate Er 30 Mg Tablet PO 30 mg DAILY MARISEL Administration Levalbuterol HCl 1.25 mg 05/27/22 12:00 05/28/22 04:49 Levalbuterol 1.25 Mg/3 Ml Neb INHALATION Not Given Q4H.RESPIRATORY MARISEL Lorazepam 0.25 mg 05/24/22 16:07 05/27/22 20:10 Lorazepam 0.5 Mg Tablet PO 0.25 mg TID PRN Administration ANXIETY Pantoprazole Sodium 40 mg 05/23/22 18:00 05/27/22 17:[address] 40 Mg Tablet PO 40 mg BID MARISEL Administration Sotalol HCl 80 mg 05/26/22 07:00 05/28/22 05:51 Sotalol 80 Mg Tablet PO 80 mg 0700 MARISEL Administration Sotalol HCl 40 mg 05/25/22 19:00 05/27/22 17:56 Sotalol 80 Mg Tablet PO 40 mg 1900 MARISEL Administration Trazodone HCl 150 mg 05/23/22 21:00 05/27/22 20:10 Trazodone 150 Mg Tablet PO 150 mg BEDTIME MARISEL Administration PFSH Anesthesia Medical History Acute exacerbation of chronic obstructive pulmonary disease Allergic rhinitis Atrial fibrillation Atrial fibrillation with RVR Bilateral wheezing CAD (coronary artery disease) Chronic low back pain GERD (gastroesophageal reflux disease) HTN (hypertension) Hyperlipidemia Hypertension IBS (irritable bowel syndrome) Insomnia Memory loss Surgical History History of coronary artery stent placement Hx of coronary artery bypass graft S/P triple vessel bypass Family History Other CAD (coronary artery disease) Dementia Family history of premature coronary artery disease Hypertension Social History Smoking and tobacco status: current every day smoker cigarettes Packs smoked per day: 1 Years cigarettes smoked: 55 [ Other cigarette details: 4 cigarettes per day currently] Female Reproductive History Date of last menstrual period: 10/29/05 Data Anesthesia 05/27/22 01:41 05/28/22 02:26 Short CBC 05/27/22 Range/Units 01:41 WBC 5.3 (4.0-10.0) 10^3/uL Hgb 11.6 (11.5-15.3) g/dL Hct 36.3 L (37.0-47.0) % MCV 97.1 (81-99) fl Plt Count 168 (130-400) 10^3/cmm Neut % (Auto) 71.1 % Neut # (Auto) 3.76 (1.8-7.7) 10^3/uL BMP 05/27/22 05/28/22 01:41 02:26 Sodium 139 141 Potassium 3.4 L 4.1 Chloride 95 L 100 Carbon Dioxide 36 H 37 H BUN 27 H 19 Creatinine 0.9 0.9 Glucose 105 117 H Calcium 8.9 9.3 Liver Function 05/27/22 05/28/22 Range/Units 01:41 02:26 Total Bilirubin 0.6 0.6 (0.15-1.2) mg/dL AST 271 H 176 H (0-32) U/L ALT 316 H 259 H (0-33) U/L Alkaline Phosphatase 141 H 151 H (35-105) U/L Albumin 3.4 L 3.5 (3.5-5.2) g/dL Cardiac Studies: Echocardiogram 05/24/22 Sestamibi Stress Test (Cardiology) 05/26/22 Holter Monitor 01/22/21
--- NOTE | 2022-05-28 08:30 | USCV_ITS ---
Aimee Sorensen Age: 71 Gender: F : 1950 Exam Date: 05/28/2022 08:41 Ordering Phys: Ada Goodman MD ([email or web address]) Technologist: Tom Pedro Exam Location: [facility] [place] Indication: Atrial fibrillation BP: / HR: Rhythm: Sinus Technical Quality: Excellent MEASUREMENTS (Male / Female) Normal Values Medications Patient given IV sedation by anesthesia service, for details please refer to the anesthesia report. Complications Intubation easy. Attempts x 1. Patient tolerated procedure well. No blood on probe post procedure. Proc. Components The JAMI probe was passed into the posterior pharynx , mid- esophagus, distal esophagus, and gastric fundus. FINDINGS Left Ventricle Normal left ventricular cavity size. Moderately decreased left ventricular systolic function. Left ventricular ejection fraction is estimated at 35 %. Moderate global hypokinesis. Right Ventricle Normal right ventricular size and mildly decreased right ventricular systolic function. Right Atrium Mildly increased right atrial size. Left Atrium Moderately increased left atrial size. LA Appendage Normal left atrial appendage. Decreased flow velocities in the left atrial appendage. No thrombus visualized in the left atrial appendage. IA Septum Normal interatrial septum. No patent foramen ovale. No evidence for an atrial septal defect. Mitral Valve Structurally normal mitral valve. No mitral valve stenosis. Mild mitral valve regurgitation. Aortic Valve Mildly thickened and calcified trileaflet aortic valve. No aortic valve stenosis. No aortic valve regurgitation. Tricuspid Valve Structurally normal tricuspid valve. No tricuspid valve stenosis. Trace to mild tricuspid valve regurgitation. Pulmonic Valve Structurally normal pulmonic valve. No pulmonary valve stenosis. Trace pulmonary valve regurgitation. Pericardium No pericardial effusion. Aorta Normal size aortic root and proximal ascending aorta. Normal descending aorta size. No aortic dilation aneurysm or dissection. Grade 3 atheroma noted in proximal to mid descending aorta and aortic arch. CONCLUSIONS 1. Normal left ventricular cavity size. Moderately decreased left ventricular systolic function. Left ventricular ejection fraction is estimated at 35 %. Moderate global hypokinesis. 2. Mildly decreased right ventricular systolic function. 3. No thrombus visualized in the left atrial appendage or left atrium. 4. Mild mitral valve regurgitation (VC=0.24 cm, ERO =17 cm2). 5. Grade 3 atheroma noted in proximal to mid descending aorta and aortic arch. Ada Goodman MD (Electronically Signed) Final Date: 28 May 2022 12:15 S
[2022-05-28] MEDS: sodium chloride 0.9% 1,000 ML 50 ML IV (08:40)
--- NOTE | 2022-05-28 09:08 | ECG_ITS ---
[facility] Test Date: 2022-05-28 Pat Name: Aimee Sorensen Department: Room: 106 Gender: Female Mud Jack Operator: : 1950 Requested By: Ada Goodman Order Number: [id number] Mark MD: Rufus Richard M.D. Measurements Intervals [place] Rate: 54 P: 91 DC: 176 QRS: 101 QRSD: 108 T: 71 QT: 484 QTc: 459 Interpretive Statements SINUS BRADYCARDIA WITH OCCASIONAL SUPRAVENTRICULAR PREMATURE COMPLEXES ARM LEADS REVERSED [INVERTED P AND QRS IN I] Compared to ECG 05/27/2022 13:52:01 Atrial fibrillation no longer present Electronically Signed On 05-28-2022 21:27:47 PILL MAKER by Rufus Richard M.D. [id number]
--- NOTE | 2022-05-28 09:21 | P.PN_ITS ---
Subjective Subjective: Patient is laying supine No active shortness of breath or chest pain family at the bedside No overnight events Going for cardioversion at 8:30 AM today Vitals/I&O/Wt Last Vital Signs Temp 99.4 F 05/28/22 07:15 Pulse 101 H 05/28/22 08:19 Resp 20 H 05/28/22 08:19 BP 145/99 05/28/22 07:15 Pulse Ox 96 05/28/22 08:19 O2 Del Method 05/28/22 08:19 O2 Flow Rate 3 05/28/22 08:19 FiO2 30 05/27/22 08:00 05/27/22 05/28/22 05/28/22 22:59 06:59 14:59 Intake Total 480 / 800 120 / 920 Output Total 450 / 450 750 / 1200 Balance 30 / 350 -630 / -280 Physical Exam Narrative: Euvolemic Awake and alert Pleasant and cooperative Crackles on lung auscultation improved Patient is pleasant and cooperative Nonfocal neuro exam A. fib heart rate in 90s Hemodynamically stable Doing well on 2 liters nasal cannula Urinary Catheter Management: Alcala Latex Free: Cath Placed During This Visit: yes Reason for Continuing Indwelling Catheter: Accurate Measurement of Urinary Output in Critically Ill Patients Urinary Catheter Date of Insertion: 05/24/22 Urinary Catheter Time of Insertion: 16:28 Data 05/27/22 01:41 05/28/22 02:26 A&P Assessment and plan (1) CAD (coronary artery disease): (2) Atrial fibrillation with RVR: (3) Exertional dyspnea: (4) COPD (chronic obstructive pulmonary disease): Plan A. fib without RVR Plan for cardioversion today Reviewed chest the dose of Cardizem and sotalol afterwards Acute preserved ejection action heart rate exacerbation: Improved currently Lasix on hold Electrolytes replenished COPD without acute exacerbation 2 L of oxygen Full code Cardiac diet after the cardioversion Family is at the bedside DVT prophylaxis on board Attestations Medical Necessity Statement*: Plan to discharge her next 24 hours if remains stable Time Spent in Patient Care: 40 Coding Level of Care Code Acute Water Project Manager for Chg Fwd Diagnoses CAD (coronary artery disease) I25.10 Atrial fibrillation with RVR I48.91 Exertional dyspnea R06.00 COPD (chronic obstructive pulmonary disease) J44.9
--- NOTE | 2022-05-28 09:25 | PM.PN ---
Subjective Subjective: Patient feels well this morning and underwent JAMI/CV Medications: Reviewed: Yes Vitals/I&O/Wt Last Vital Signs Temp 99.4 F 05/28/22 07:15 Pulse 101 H 05/28/22 08:19 Resp 20 H 05/28/22 08:19 BP 145/99 05/28/22 07:15 Pulse Ox 96 05/28/22 08:19 O2 Del Method 05/28/22 08:19 O2 Flow Rate 3 05/28/22 08:19 FiO2 30 05/27/22 08:00 05/27/22 05/28/22 05/28/22 22:59 06:59 14:59 Intake Total 480 / 800 120 / 920 Output Total 450 / 450 750 / 1200 Balance 30 / 350 -630 / -280 Physical Exam Narrative: GENERAL: Averagely built and averagely nourished in no acute distress HEENT: Extraocular movement intact. No pallor or icterus. NECK: central trachea, No JVD, No carotid bruit. CARDIOVASCULAR SYSTEM: S1-S2 regular. tachycardia+, No murmur or gallops heard RESPIRATORY SYSTEM: Chest clear to auscultation. No wheezes rhonchi or rubs heard. ABDOMEN: Soft, nontender and nondistended. Normal bowel sounds present. EXTREMITIES: No cyanosis, trace edema. No signs of chronic venous insufficiency. 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 No focal neurological deficits. SKIN: Normal turgor and temperature. PSYCH: Normal insight and judgment. Urinary Catheter Management: [place] Latex Free: Cath Placed During This Visit: yes Reason for Continuing Indwelling Catheter: Accurate Measurement of Urinary Output in Critically Ill Patients Urinary Catheter Date of Insertion: 05/24/22 Urinary Catheter Time of Insertion: 16:28 Data 05/27/22 01:41 05/28/22 02:26 A&P Assessment and plan (1) Atrial fibrillation with RVR: Options here are rate control and rhythm control. -will continue sotalol 80 am and 40 pm. Continue Cardizem 30 mg p.o. every 6 hr -I had long discussion with patient and her three daughters and son about JAMI/CV. -continue Eliquis. All questions about JAMI cardioversion, A. fib ablation and whether or not patient is going to benefit from permanent pacemaker were discussed with patient and her family. -Rate control versus rhythm control strategies discussed with the patient -Risks and benefits were discussed with the patients. Alternate management options were discussed with the patient as well. Possible complications including risk of esophageal perforation and need for permanent post pacemaker post cardioversion were discussed as well. Plan is to proceed for the procedure tomorrow. -20 minutes were spent with the patient and family. s/p CV and congregational od SR -D/C cardizem -continue sotalol and Eliquis (2) Congestive heart failure: HFmrEF and RV dysfunction -Concern for tachycardia induced cardiomyopathy LOS - ~ 4.6L -Appears fairly euvolemic on exam. Lasix held today No ischemia on stress test. Very small area of decreased tracer uptake in on mid anterior wall with subtle reversibility likely d/t post CABG with LAD graft (3) CAD (coronary artery disease): s/p CABGx 3 and stents, (4) HTN (hypertension): (5) Hyperlipidemia: Plan Moderate MR Mild TR Transaminitis COPD Pulmonary hypertension Active smoker Hypokalemia: resolved Thank you for allowing me to participate in patient's care. Please feel free to call with questions or concerns. Attestations Medical Necessity Statement*: needs hospital stay post CV for med adjustments Time Spent in Patient Care: Greater than 35 minutes Critical Care Time: The high probability of a clinically significant, sudden or life threatening deterioration of the patient's [cardiac] system(s) required my full and direct attention, intervention and personal management. The critical care time is as shown. This time is in addition to time spent performing any reported procedures but includes the following: [x] Data and vital sign review and interpretation [x] Patient assessment, examination and intervention [x] Documentation [x] Medication orders and management Critical Care Time (min): 40 Procedures Time out/Consent Time Out Performed: Yes Consent for Procedure: Consent obtained from patient, Consent obtained from other (indicate), Risks & Benefits reviewed and Agrees to proceed with procedure Procedure Narrative JAMI Procedure note Indication: Symptomatic atrial fibrillation Sedation: Propofol by anesthesia Procedure was explained to the patient in detail and informed consent was obtained. Timeout was called. After achieving adequate sedation, the probe was inserted on first attempt. No blood on the probe post procedure. Prelim report: Moderately decreased left ventricle systolic function. No left atrial or left atrial appendage mass or thrombus visualized. No ASD or PFO identified. Full report to follow. Cardioversion procedure note. Anticoagulation: Eliquis Sedation: Propofol by anesthesia After ensuring there was no left atrial or left atrial appendage thrombus, decision was made to proceed with cardioversion. Pads were placed anteroposteriorly. She received 120 J of synchronized biphasic shock ?1 with congregational to sinus bradycardia. Patient tolerated the procedure well. Recovery: In unit Coding Level of Care Code Acute Preservative Filler Machine Operator for Chg Fwd Diagnoses Atrial fibrillation with RVR I48.91 Congestive heart failure I50.9 CAD (coronary artery disease) I25.10 HTN (hypertension) I10 Hyperlipidemia E78.5
[2022-05-28] MEDS: aspirin 81 mg EC Tablet PO (09:47)
[2022-05-28] MEDS: ferrous sulfate EC 325 mg Tablet PO ×2 (09:47→17:46)
[2022-05-28] MEDS: apixaban 5 mg Tablet PO ×2 (09:47→17:46)
[2022-05-28] MEDS: donepezil 5 MG Tablet 10 MG PO (09:47)
[2022-05-28] MEDS: pantoprazole DR 40 mg Tablet PO ×2 (09:47→17:46)
--- NOTE | 2022-05-28 10:07 | PC.SOCIAL ---
IMM Updated Updated pt & family on IMM. No questions voiced. Provided pt a copy. Initialed, dated, & timed copy in chart.
--- NOTE | 2022-05-28 11:03 | PC.NURSE ---
dr lazo performed sakina and cardioversion at 0850.anesthesia and ultrasound and nurses present.vss through-out procedure.converted to sb then nsr after 1 synchronized cardioversion at 120 joules.pt awoke from sedation quickly.tolerated procedure well.
[2022-05-28] MEDS: LORazepam 0.5 mg Tablet 0.25 MG PO ×2 (15:29→22:26)
[2022-05-28] MEDS: guaiFENesin-dextromethorphan UDC 10 mL PO ×2 (15:29→22:26)
[2022-05-28] MEDS: guaiFENesin 600 mg Tablet PO (17:45)
[2022-05-28] MEDS: sotalol 80 mg Tablet 40 MG PO (17:46)
[2022-05-28] MEDS: atorvastatin 40 mg Tablet 80 MG PO (17:46)
--- NOTE | 2022-05-28 18:27 | PC.NURSE ---
pt has been coughing profusely since admission..but worse after procedure today.dr oh notified.cough medicines ordered
--- NOTE | 2022-05-28 21:28 | PC.NURSE ---
Spoke with regarding patient complaint of anxiety, requesting her anxiety medication. Medication appears to have been discontinued on days, no indication why in progress notes. ordered one time dose of lorazepam PO tonight.
[2022-05-28] MEDS: trazodone 150 mg Tablet PO (21:29)
[2022-05-29] VITALS (13 sets, daily range): BP systolic 143–163; BP diastolic 74–88; PULSE 58–84; RESP 13–26; TEMP 36.8–37.1; O2SAT 90–97
[2022-05-29 04:48] LABS: Anion Gap 8.7 (5-19); Blood Urea Nitrogen 15 mg/dL (8-23); Calcium 9.3 mg/dL (8.5-10.5); Carbon Dioxide 31 mmol/L (22-29); Chloride 102 mmol/L (98-107); Glucose 91 mg/dL (65-115); Osmolality Calculated 286 mOsm/kg (285-295); Potassium 3.7 mmol/L (3.5-5.1); Sodium 138 mmol/L (136-145)
--- NOTE | 2022-05-29 07:37 | PM.DCS ---
Discharge Providers Date of Admission: 05/23/22 10:38 Date of Discharge: May 29, 2022 Attending Provider at Admission: Blanca Escalante MD Attending Provider at Discharge: Atilio Astorga MD Primary Care Provider: Ashley Varela NP Diagnoses at Discharge Discharge Diagnosis (1) Atrial fibrillation with RVR: Status: Acute (2) Congestive heart failure: Status: Acute (3) CAD (coronary artery disease): Status: Acute (4) HTN (hypertension): Status: Acute (5) Hyperlipidemia: Status: Acute Reason for Visit Reason for Visit: SOB; CHEST PAIN Brief History: Aimee Sorensen is a 71 year old female with past medical history of CAD status post CABG in 2000, smoking, COPD, hypertension, recent atrial fibrillation presented to the hospital for? shortness of breath and chest pain.? Initially said that the chest pain started about 3 days ago and for the last couple of days it has been worsening.? Patient took 2 nitro after which the pain resolved.? When seen in ED she was not having any more chest pain.? Shortness of breath started yesterday.? Also had a dry cough along with some nasal drainage and congestion.? Patient denied having a fever, vomiting, dysuria, hematuria, palpitations.? Patient recently saw cardiology on May 11 and thought was a hospital follow-up from discharge in February.? In February she was hospitalized for COPD exacerbation and had volume overload.? Patient is on diuretics at home including sotalol and Eliquis.? Her most recent echo in October 2021 showed normal EF 50 to 55% and diastolic dysfunction indeterminate with moderate mitral regurgitation.? For COPD she has had PFTs done which showed moderate airflow obstruction.? She follows up with Dr. Luke as an outpatient. ED course: On arrival to ER blood pressure 154/87, saturating 93% on 2 L nasal cannula, tachycardic, pulse 131, temperature 100.6.? Chest x-ray shows enlarged heart and trace atelectasis or scarring noted in left lung base.? Labs significant for WBC 10.9, creatinine 1.1, BNP 12,933 patient says she missed her dose of sotalol at home therefore she was given 40 mg x 1, Cardizem 10 IV push x1, Lasix 40 IV x1, Levaquin 750x1 and placed on a Cardizem drip.? Transfer orders to [facility] written. Hospital Course Hospital Course Patient was admitted for management and evaluation of symptomatic A. fib while she was in RVR. She was admitted to [facility], her home dose of sotalol was continued along Cardizem drip which was transitioned to p.o. Cardizem, on admission she was showing signs of mild pulmonary vascular congestion and required Lasix IV 40 mg twice a day, her Eliquis was continued throughout her hospitalization, QTC prolongation was not noted, cardiology was consulted to cardiovert her because she failed medical treatment to bring her heart rate below 110, patient went for cardioversion on 05/28 which successfully converted her to normal sinus rhythm, decision was made to continue sotalol and discontinue Cardizem at the time of discharge. Patient was requiring 2 to 3 L of oxygen during hospitalization however home O2 evaluation at the time of discharge did not show any hypoxia on ambulation on room air. She did not qualify for oxygen. Patient is moving to [place], she will establish PCP most likely will benefit from pulmonary rehab considering active smoking and COPD. Please note patient also had a cardiac stress test done because there was mild reduction of EF noted of right ventricle and left ventricle. There were no signs of ischemia. Reduction in EF most likely was tachyarrhythmia induced. Her Lasix was discontinued when low blood pressure was noted with dehydration. She was instructed to take Lasix on as-needed basis, she was counseled on smoking cessation. Family was at the bedside. All questions were answered to their satisfaction. Transesophageal echo Left Ventricle ?Normal left ventricular cavity size. Moderately decreased left ?ventricular systolic function. Left ventricular ejection ?fraction is estimated at 35 %.? Moderate global hypokinesis. ?Right Ventricle ?Normal right ventricular size and mildly decreased right ?ventricular systolic function. ?Right Atrium ?Mildly increased right atrial size. ?Left Atrium ?Moderately increased left atrial size. ?LA Appendage ?Normal left atrial appendage. Decreased flow velocities in the ?left atrial appendage. No thrombus visualized in the left atrial ?appendage. ?IA Septum ?Normal interatrial septum. No patent foramen ovale. No evidence ?for an atrial septal defect. ?Mitral Valve ?Structurally normal mitral valve. No mitral valve stenosis. Mild ?mitral valve regurgitation. ?Aortic Valve ?Mildly thickened and calcified trileaflet aortic valve. No ?aortic valve stenosis. No aortic valve regurgitation. ?Tricuspid Valve ?Structurally normal tricuspid valve. No tricuspid valve ?stenosis. Trace to mild tricuspid valve regurgitation. ?Pulmonic Valve ?Structurally normal pulmonic valve. No pulmonary valve stenosis. ?Trace pulmonary valve regurgitation. ?Pericardium ?No pericardial effusion. ?Aorta ?Normal size aortic root and proximal ascending aorta. Normal ?descending aorta size.? No aortic dilation aneurysm or ?dissection.? Grade 3 atheroma noted in proximal to mid ?descending aorta and aortic arch. ?CONCLUSIONS ?1. Normal left ventricular cavity size. Moderately decreased ?left ventricular systolic function. Left ventricular ejection ?fraction is estimated at 35 %.? Moderate global hypokinesis. ?2. Mildly decreased right ventricular systolic function. ?3. No thrombus visualized in the left atrial appendage or left ?atrium. ?4. Mild mitral valve regurgitation (VC=0.24 cm, ERO =17 cm2). ?5. Grade 3 atheroma noted in proximal to mid descending aorta ?and aortic arch. Transthoracic echo result CONCLUSIONS ?1. Normal left ventricular cavity size. Mildly decreased left ?ventricular systolic function. Left ventricular ejection ?fraction is estimated at 40-45%.? Mild global hypokinesis.? ?Abnormal septal motion. ?2. Dilated right ventricle.? Moderately decreased right ?ventricular systolic function. ?3. Mild pulmonary hypertension with pulmonary pressure estimated ?at 39 mmHg. ?4. Moderate mitral valve regurgitation. ?5. Mild tricuspid valve regurgitation. ?6.? When compared to study dated 11/05/2021, left ventricular ?and right ventricular systolic function has decreased. Cardiac stress test/Lexiscan PROCEDURE: At the baseline, the blood pressure was 119/90 mmHg, oxygen saturation 97% with a heart rate of 111 bpm. The electrocardiogram showed atrial fibrillation with rapid ventricular response, right axis deviation. Poor anterior R wave progression. ? The Lexiscan was infused over a period of 20 seconds. A total of 0.4 milligrams of Lexiscan was infused. The stress phase was continued for a total of 5 minutes. Heart rate at the end of the stress phase was 129 bpm, oxygen saturation 97% with a blood pressure of 113/82 mmHg. The EKG at the peak infusion revealed no significant ST-T wave changes.? The study was terminated protocol completion.? Patient complained of chest discomfort during Lexiscan infusion which resolved spontaneously by discharge.? Isolated PVCs noted during Lexiscan infusion. ? Sestamibi was injected 20 seconds after the Lexiscan infusion. ? Blood pressure at the end of the recovery phase was 114/86 mmHg, oxygen saturation 97% with a heart rate of 130 beats per minute. ? CONCLUSION: 1. No significant EKG changes with the LexiScan infusion. 2. No LexiScan induced chest pain or cardiac arrhythmia. 3. Normal blood pressure and heart rate response. 4. Sestamibi/sestamibi perfusion scan pending; see separate report. Physical Exam Narrative: Patient is euvolemic Doing well on room air Heart rate is in sinus rhythm heart rate is in 60s Hemodynamically stable Awake and alert Abdomen soft Urinary Catheter Management: Alcala Latex Free: Cath Placed During This Visit: yes, but has since been removed by the nurse Reason for Continuing Indwelling Catheter: Accurate Measurement of Urinary Output in Critically Ill Patients Urinary Catheter Date of Insertion: 05/24/22 Urinary Catheter Time of Insertion: 16:28 Date Urinary Catheter Removed: 05/28/22 Time Urinary Catheter Discontinued: 12:48 Discharge Data Studies Completed and Pending Completed Studies During Hospitalization Category Date Time Status CTA PE [CT angio chest PE protcl [id number]] Stat Cat Scan 05/25/22 12:28 Completed Sestamibi Stress Test Request Routine Exams 05/26/22 06:57 Completed XR chest 1V portable [id number] Routine Exams 05/24/22 15:33 Completed XR chest 1V portable [id number] Routine Exams 05/25/22 07:59 Completed XR chest 1V portable [id number] Stat Exams 05/23/22 08:09 Completed NM franci perf SPECT r/s* [id number] Routine Nuc Med 05/26/22 15:01 Completed CV. echo complete* [id number] Urgent Ultrasound 05/24/22 18:06 Completed CV. echo transesophageal [id number] Routine Ultrasound 05/28/22 08:30 Completed Pending at discharge Category Date Time Status Sestamibi Stress Test Request Routine Exams 05/25/22 15:01 Stop Req Sputum Culture and Gram Stain Stat Lab 05/28/22 20:25 Received Radiology Impressions Chest X-Ray 05/25/22 07:59 IMPRESSION: 1. Chronic emphysema with no pneumonia. 2. No CHF. 3. Moderate cardiomegaly and prior CABG. Chest CTA 05/25/22 12:28 IMPRESSION: 1. No evidence of pulmonary embolus. 2. Proximal main pulmonary arteries are somewhat prominent which can be seen with pulmonary arterial hypertension. 3. Both lungs are well aerated. No acute pulmonary infiltrates. 4. Prior sternotomy with CABG. Cardiomegaly. 5. No other acute findings. Laboratory Results WBC 5.3 10^3/uL (4.0-10.0) 05/27/22 01:41 RBC 3.74 10^6/uL (4.1-5.3) L 05/27/22 01:41 Hgb 11.6 g/dL (11.5-15.3) 05/27/22 01:41 Hct 36.3 % (37.0-47.0) L 05/27/22 01:41 MCV 97.1 fl (81-99) 05/27/22 01:41 MCH 31.0 pg (28.0-34.0) 05/27/22 01:41 MCHC 32.0 g/dL (30.0-36.0) 05/27/22 01:41 RDW 14.1 % (12.1-15.1) 05/27/22 01:41 Plt Count 168 10^3/cmm (130-400) 05/27/22 01:41 MPV 10.4 fL (7.4-10.4) 05/27/22 01:41 Neut % (Auto) 71.1 % 05/27/22 01:41 Lymph % (Auto) 16.5 % 05/27/22 01:41 [place] % (Auto) 11.6 % 05/27/22 01:41 Eos % (Auto) 0.2 % 05/27/22 01:41 Baso % (Auto) 0.2 % 05/27/22 01:41 Neut # (Auto) 3.76 10^3/uL (1.8-7.7) 05/27/22 01:41 Lymph # (Auto) 0.9 10^3/uL (0.8-4.8) 05/27/22 01:41 [place] # (Auto) 0.6 10^3/uL (0.2-0.9) 05/27/22 01:41 Eos # (Auto) 0.0 10^3/uL (0.0-0.8) 05/27/22 01:41 Baso # (Auto) 0.0 10^3/uL (0.0-0.1) 05/27/22 01:41 Nucleated RBC % (auto) 0 % 05/27/22 01:41 Nucleated RBCs # 0.0 /100WBC 05/27/22 01:41 Specimen Type Arterial 05/23/22 15:20 Sample Site Radial, right 05/23/22 15:20 ABG pH 7.35 (7.35-7.45) 05/23/22 15:20 ABG pCO2 46.2 mmHg (35-45) H 05/23/22 15:20 ABG pO2 75.5 mmHg (80.0-100.0) L 05/23/22 15:20 ABG HCO3 25.5 mmol/L (22-26) 05/23/22 15:20 ABG O2 Saturation 94.6 05/23/22 15:20 ABG Base Excess -0.5 mmol/L (-2.0-2.0) 05/23/22 15:20 Omar Test Pos 05/23/22 15:20 A-a O2 Gradient 12.8 mmHg (5-10) H 05/23/22 15:20 Hematocrit 36.9 % (37-47) L 05/23/22 15:20 Hgb O2 Saturation 92.2 % (95-100) L 05/23/22 15:20 Carboxyhemoglobin 1.5 %THgb (0.4-20.1) 05/23/22 15:20 Methemoglobin 1.1 % (0.4-1.5) 05/23/22 15:20 Total Hemoglobin 12.1 g/dL (12-16) 05/23/22 15:20 Sodium 139.0 mmol/L (131-143) 05/23/22 15:20 Potassium 4.3 mmol/L (3.5-5.0) 05/23/22 15:20 Glucose 124.0 mg/dL (70-115) H 05/23/22 15:20 Ionized Calcium 1.2 mmol/L (1.1-1.4) 05/23/22 15:20 O2 Delivery Device Nc 05/23/22 15:20 O2 Liters/Min 3.0 % 05/23/22 15:20 FiO2 32.0 % 05/23/22 15:20 Guard Captain ID Cak 05/23/22 15:20 Sodium 138 mmol/L (136-145) 05/29/22 03:44 Potassium 3.7 mmol/L (3.5-5.1) 05/29/22 03:44 Chloride 102 mmol/L (98-107) 05/29/22 03:44 Carbon Dioxide 31 mmol/L (22-29) H 05/29/22 03:44 Anion Gap 8.7 (5-19) 05/29/22 03:44 BUN 15 mg/dL (8-23) 05/29/22 03:44 Creatinine 0.7 mg/dL (0.5-0.9) 05/29/22 03:44 GFR Calculation Not Reportable 05/29/22 03:44 Glucose 91 mg/dL (65-115) 05/29/22 03:44 Calculated Osmolality 286 mOsm/kg (285-295) 05/29/22 03:44 Lactic Acid 1.8 mmol/L (0.5-2.2) 05/23/22 09:30 Calcium 9.3 mg/dL (8.5-10.5) 05/29/22 03:44 Magnesium 2.1 mg/dL (1.7-2.3) 05/28/22 02:26 Total Bilirubin 0.6 mg/dL (0.15-1.2) 05/28/22 02:26 AST 176 U/L (0-32) H 05/28/22 02:26 ALT 259 U/L (0-33) H 05/28/22 02:26 Alkaline Phosphatase 151 U/L (35-105) H 05/28/22 02:26 Troponin T Baseline 16 ng/L (0-10) H 05/24/22 15:58 Troponin T 120 Minute 17.48 ng/L (0-10) H 05/24/22 17:30 Delta Troponin T 1.48 ABS# (0-10) 05/24/22 17:30 Troponin T Hi Sens 6Hr 15.98 ng/L (0-10) H 05/24/22 21:49 Troponin T Hi Sens 6Hr Delta -0.02 ng/L (0-12) L 05/24/22 21:49 NT-Pro-B Natriuret Pep 99331 pg/mL (0-125) H 05/23/22 09:30 Total Protein 6.1 g/dL (6.6-8.7) L 05/28/22 02:26 Albumin 3.5 g/dL (3.5-5.2) 05/28/22 02:26 Globulin 2.6 g/dL (1.3-4.6) 05/28/22 02:26 Procalcitonin 0.07 ng/mL (0-0.5) 05/23/22 09:30 Urine Color Yellow (Yellow) 05/23/22 23:10 Urine Appearance Clear (CLEAR) 05/23/22 23:10 Urine pH 5 (5-7) 05/23/22 23:10 Ur Specific [place] 1.020 (1.005-1.030) 05/23/22 23:10 Urine Protein Neg (Negative) 05/23/22 23:10 Urine Glucose (UA) Norm (Normal) 05/23/22 23:10 Urine Ketones Negative (Negative) 05/23/22 23:10 Urine Blood Neg (Negative) 05/23/22 23:10 Urine Nitrate Negative (Negative) 05/23/22 23:10 Urine Bilirubin Neg (Negative) 05/23/22 23:10 Urine Urobilinogen Norm mg/dL (Negative) 05/23/22 23:10 Ur Leukocyte Esterase Negative (Negative) 05/23/22 23:10 Influenza Type A Ag negative (Negative) 05/23/22 08:28 Influenza Type B Ag negative (Negative) 05/23/22 08:28 SARS-CoV-2 Ag (Rapid) negative (Negative) 05/23/22 08:28 Vitals Last Vital Signs Temp 98.3 F 05/29/22 03:45 Pulse 72 05/29/22 03:45 Resp 18 05/29/22 03:45 BP 152/88 05/29/22 03:45 Pulse Ox 95 05/29/22 03:45 O2 Del Method 05/29/22 03:45 O2 Flow Rate 2 05/29/22 03:45 FiO2 30 05/28/22 08:00 Discharge Plan Discharge Patient Disposition: Home Condition: Stable Prescriptions: New Xanax 0.5 mg tablet 0.5 mg PO BID PRN (Reason: anxiety) Qty: 20 0RF Continued acetaminophen 650 mg tablet extended release 650 mg PO Q12H aspirin 81 mg tablet,delayed release (DR/EC) 81 mg PO DAILY atorvastatin 80 mg tablet 80 mg PO QPM B-100 Complex 100 mg tablet extended release 1 tab PO DAILY vitamin D3-vitamin K2 5,500-200 unit-mcg tablet 1 tab PO Q2D donepezil 10 mg tablet 10 mg PO DAILY montelukast 10 mg tablet 10 mg PO QPM multivitamin Tablet 1 tab PO DAILY pantoprazole 40 mg tablet,delayed release (DR/EC) 40 mg PO BID sotalol 80 mg tablet 40 mg PO BID tizanidine 4 mg capsule 4 mg PO Q8H PRN (Reason: Muscle Pain) trazodone 150 mg tablet 150 mg PO BEDTIME dicyclomine 20 mg tablet 20 mg PO QID PRN (Reason: PAIN) pregabalin 100 mg capsule 100 mg PO BID albuterol sulfate 90 mcg/actuation HFA aerosol inhaler 2 puff inhalation Q6H PRN (Reason: shortness of breath or wheezing) Qty: 8.5 5RF olmesartan 40 mg tablet 40 mg PO DAILY ferrous sulfate 325 mg (65 mg iron) tablet 325 mg PO BID Eliquis 5 mg tablet 5 mg PO BID Qty: 180 3RF Trelegy Ellipta 100-62.5-25 mcg blister with device 1 inh inhalation DAILY Qty: 60 6RF ipratropium-albuterol 0.5 mg-3 mg(2.5 mg base)/3 mL solution for nebulization 3 ml inhalation Q6H PRN (Reason: shortness of breath or wheezing) Qty: 180 5RF potassium chloride 10 mEq tablet extended release 20 meq PO DAILY Rx Instructions: while taking extra dose of lasix. isosorbide mononitrate 30 mg tablet extended release 24 hr 30 mg PO DAILY Qty: 30 0RF nitroglycerin 0.4 mg tablet, sublingual 0.4 mg sublingual Q5M PRN (Reason: chest pain) Qty: 30 0RF Rx Instructions: do not exceed 3 doses per episode Changed furosemide 40 mg tablet 40 mg PO DAILY Qty: 30 0RF Rx Instructions: second dose at 2PM Discontinued meloxicam 15 mg tablet 15 mg PO DAILY Discharge Orders: Discharge Order (Routine); Ordered 05/29/22 Ordered By: Atilio Astorga Referrals: Ashley Varela NP [Primary Care Provider] - Ada Goodman MD [Physician] - 2 weeks Discharge Diet: Cardiac Patient Instructions: A-fib (Atrial Fibrillation) (DC), Emphysema (DC), Cardioversion (DC), Opioid Safety Activity Restrictions/Additional Instructions: Please make an appointment with your primary care physician and automobile accessories installer once you arrive to [place]. Discharge Attestations Time Spent in Discharge Care*: less than 30 min Quality Metrics Clinical Quality Measures [ No reported AMI, CVA or VTE this stay] Coding Level of Care Code Acute Chg FW DC note Diagnoses Atrial fibrillation with RVR I48.91 Congestive heart failure I50.9 CAD (coronary artery disease) I25.10 HTN (hypertension) I10 Hyperlipidemia E78.5
--- NOTE | 2022-05-29 08:24 | ECG_ITS ---
[facility] Test Date: 2022-05-29 Pat Name: Aimee Sorensen Department: Room: 106 Gender: Female Die Tester: : 1950 Requested By: Ada Goodman Order Number: [id number] Mark MD: Ada Goodman M.D. Measurements Intervals [place] Rate: 61 P: 76 PA: 158 QRS: 105 QRSD: 97 T: 68 QT: 455 QTc: 459 Interpretive Statements SINUS RHYTHM POSSIBLE RIGHT VENTRICULAR HYPERTROPHY MINIMAL ST DEPRESSION Compared to ECG 05/28/2022 09:07:10 ST (T wave) deviation now present Sinus bradycardia no longer present Electronically Signed On 05-29-2022 20:34:12 CASTING CARRIER by Ada Goodman M.D. [id number]
[2022-05-29] MEDS: aspirin 81 mg EC Tablet PO (08:26)
[2022-05-29] MEDS: guaiFENesin 600 mg Tablet PO (08:26)
[2022-05-29] MEDS: donepezil 5 MG Tablet 10 MG PO (08:27)
[2022-05-29] MEDS: apixaban 5 mg Tablet PO (08:27)
[2022-05-29] MEDS: ferrous sulfate EC 325 mg Tablet PO (08:27)
[2022-05-29] MEDS: sotalol 80 mg Tablet PO (08:27)
[2022-05-29] MEDS: pantoprazole DR 40 mg Tablet PO (08:27)
[2022-05-29] MEDS: ipratropium 0.5 mg/2.5 mL Neb INHALATION (09:31)
[2022-05-29] MEDS: levalbuterol 1.25 mg/3 mL Neb INHALATION (09:32)
--- NOTE | 2022-05-29 09:56 | PM.PN ---
Subjective Subjective: Patient feels well this morning; s/p JAMI/CV yesterday morning Medications: Reviewed: Yes Vitals/I&O/Wt Last Vital Signs Temp 98.8 F 05/29/22 08:00 Pulse 67 05/29/22 08:00 Resp 16 05/29/22 08:00 BP 163/86 05/29/22 08:00 Pulse Ox 97 05/29/22 08:00 O2 Del Method 05/29/22 08:00 O2 Flow Rate 2 05/29/22 08:00 FiO2 30 05/29/22 08:00 05/28/22 05/29/22 05/29/22 22:59 06:59 14:59 Intake Total 756.667 / 1236.667 0 / 1236.667 Output Total 700 / 700 Balance 756.667 / 1236.667 -700 / 536.667 Physical Exam Narrative: GENERAL: Averagely built and averagely nourished in no acute distress HEENT: Extraocular movement intact. No pallor or icterus. NECK: central trachea, No JVD, No carotid bruit. CARDIOVASCULAR SYSTEM: S1-S2 regular, No murmur or gallops heard RESPIRATORY SYSTEM: Chest clear to auscultation. No wheezes rhonchi or rubs heard. ABDOMEN: Soft, nontender and nondistended. Normal bowel sounds present. EXTREMITIES: No cyanosis, trace edema. No signs of chronic venous insufficiency. 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 No focal neurological deficits. SKIN: Normal turgor and temperature. PSYCH: Normal insight and judgment. Urinary Catheter Management: [place] Latex Free: Cath Placed During This Visit: yes, but has since been removed by the nurse Reason for Continuing Indwelling Catheter: Accurate Measurement of Urinary Output in Critically Ill Patients Urinary Catheter Date of Insertion: 05/24/22 Urinary Catheter Time of Insertion: 16:28 Date Urinary Catheter Removed: 05/28/22 Time Urinary Catheter Discontinued: 12:48 Data 05/27/22 01:41 05/29/22 03:44 Micro: Microbiology 05/23/22 12:40 Blood Culture - Final Blood NO GROWTH AFTER 5 DAYS 05/23/22 12:30 Blood Culture - Final Blood NO GROWTH AFTER 5 DAYS A&P Assessment and plan (1) Atrial fibrillation with RVR: Options here are rate control and rhythm control. -will continue sotalol 80 am and 40 pm. -I had long discussion with patient and her three daughters and son about JAMI/CV. -continue Eliquis. 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 low dose Lasix on discharge No ischemia on stress test. Very small area of decreased tracer uptake in on mid anterior wall with subtle reversibility likely d/t post CABG with LAD graft (3) CAD (coronary artery disease): s/p CABGx 3 and stents, (4) HTN (hypertension): (5) Hyperlipidemia: Plan Moderate MR Mild TR Transaminitis COPD Pulmonary hypertension Active smoker Hypokalemia: resolved Thank you for allowing me to participate in patient's care. Please feel free to call with questions or concerns. Attestations Medical Necessity Statement*: stable to be discharged Time Spent in Patient Care: 16 - 35 minutes Coding Level of Care Code Acute Digital Forensics Examiner for Con Hinojosa Diagnoses Atrial fibrillation with RVR I48.91 Congestive heart failure I50.9 CAD (coronary artery disease) I25.10 HTN (hypertension) I10 Hyperlipidemia E78.5
--- NOTE | 2022-05-29 10:52 | PC.NURSE ---
Discharge instructions given to pt and explained to her and her family. Voiced understanding. Pt does not qualify for home O2. 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
--- NOTE | 2022-05-31 08:27 | PC.SOCIAL ---
Critical Lab Had voicemail from Lab that patient had critical lab. Called lab and spoke to Daphne who reports that patient has discharged and that she does not see any critical labs to report.
== END 2022-05-29 11:40 | disposition home or self-care (01) | DRG 308 ==
LOC: ER 09:57 → ER IP 14:44 → CSU 15:19
PROVIDERS: Physician Assistant; Admitting Provider Internal Medicine; Emergency Provider Family Medicine; PCP Nurse Practitioner Family; Visit Provider Internal Medicine
DX: I48.91 Unspecified atrial fibrillation (principal); I50.31 Acute diastolic (congestive) heart failure; I11.0 Hypertensive heart disease with heart failure; I25.10 Atherosclerotic heart disease of native coronary artery without angina pectoris; Z95.1 Presence of aortocoronary bypass graft; Z95.5 Presence of coronary angioplasty implant and graft; E78.5 Hyperlipidemia, unspecified; F17.210 Nicotine dependence, cigarettes, uncomplicated; J44.9 Chronic obstructive pulmonary disease, unspecified; I08.1 Rheumatic disorders of both mitral and tricuspid valves; E86.0 Dehydration; Z79.82 Long term (current) use of aspirin; Z79.891 Long term (current) use of opiate analgesic; Z79.51 Long term (current) use of inhaled steroids; E87.6 Hypokalemia; I27.20 Pulmonary hypertension, unspecified; F41.0 Panic disorder [episodic paroxysmal anxiety]; F41.9 Anxiety disorder, unspecified; K21.9 Gastro-esophageal reflux disease without esophagitis; G89.29 Other chronic pain; M54.50 Low back pain, unspecified
CPT/HCPCS: 36415; 36600; 51702; 71045; 71275; 78452; 80048; 80051; 80053; 81003; 82330; 82805; 83605; 83735; 83880; 84145; 84484; 85025; 86403; 87040; 87070; 87205; 87426; 87449; 87641; 87804; 93005; 93017; 93306; 93312; 93320; 93325; 94640; 94660; 94760; 96365; 96366; 96367; 96374; 96375; 99291; A9500; C9113; J0360; J0456; J0696; J1885; J1940; J1956; J2704; J2765; J2785; J2920; J2930; J3490; J7030; J7050; J7614; J7644; Q9967